=== PATIENT | female | born 1940 | race Caucasian/White ===

== ENCOUNTER 2019-09-29 10:42 | Outpatient (CLI) | payer MEDICARE, OTHER, SELFPAY ==
--- NOTE | ~2019-09-29 | MM_ITS ---
EXAMINATION: MM screening [facility] BI w zay HISTORY: Screening mammogram TECHNIQUE: Craniocaudal and mediolateral oblique 3-D tomosynthesis images were obtained and synthetic 2-D images were generated. CAD analysis was submitted and interpreted. COMPARISON: Comparison to multiple prior studies sequentially, with oldest reviewed study dated 11/2011. BREAST PARENCHYMAL COMPOSITION: There are scattered areas of fibroglandular density. FINDINGS: There is no evidence of suspicious mass, calcification, or architectural distortion to sugg est malignancy in either breast. There has been no suspicious interval change. IMPRESSION: 1. No mammographic evidence of malignancy. 2. Recommend routine screening mammography in one year. BI-RADS Category 1: Negative Reviewed, dictated and finalized at location A.
== END 2019-09-29 10:43 | disposition home or self-care (01) ==
PROVIDERS: PCP Family Medicine; Visit Provider Family Medicine
DX: Z12.31 Encounter for screening mammogram for malignant neoplasm of breast (principal)
CPT/HCPCS: 77063; 77067

== ENCOUNTER 2019-10-14 10:56 | Outpatient (CLI) | payer MEDICARE, OTHER, SELFPAY ==
--- NOTE | ~2019-10-14 | XR_ITS ---
EXAMINATION: XR ankle LT min 3V, XR foot LT min 3V DATE: 10/14/2019 11:11 INDICATION: Left foot pain TECHNIQUE: 1. Anteroposterior, mortise, additional oblique and lateral view of the left ankle were obtained. 2. Dorsoplantar, two oblique and lateral views of the left foot were obtained. COMPARISON: None. FINDINGS: There is approximately 2-3 mm separation across an oblique fracture at the base of the left fifth met atarsal which extends to the junction of the articular surfaces with the cuboid and adjacent fourth m etatarsal. The fracture margins are somewhat indistinct with increased sclerosis but no cortication t o suggest nonunion consistent with likely subacute fracture with early changes of healing but no defi nitive solid bridging. Otherwise normal alignment at the left foot and ankle. No other fractures iden tified. Polyarticular osteoarthritis, moderate severity at the first metatarsophalangeal and second d istal interphalangeal joints and mild at the left ankle and several additional joints in the left mid and forefoot. No left ankle joint effusion. Soft tissue swelling about the dorsal lateral aspect of the midfoot. IMPRESSION: 1. 2-3 mm separation of an ununited likely subacute intra-articular fracture at the base of the left fifth metatarsal. Reviewed, dictated and finalized at location D. IMPRESSION: 1. 2-3 mm separation of an ununited likely subacute intra-articular fracture at the base of the left fifth metatarsal.
== END 2019-10-14 10:57 | disposition home or self-care (01) ==
PROVIDERS: PCP Family Medicine; Visit Provider Physician Assistant
DX: M79.672 Pain in left foot (principal); M25.572 Pain in left ankle and joints of left foot
CPT/HCPCS: 73610; 73630

== ENCOUNTER 2019-11-01 10:57 | Outpatient (CLI) | payer MEDICARE, OTHER, SELFPAY ==
--- NOTE | ~2019-11-01 | MR_ITS ---
EXAMINATION: MR lumbar spine wo/w con DATE: 11/01/2019 12:03 INDICATION: Lumbago. TECHNIQUE: Magnetic resonance imaging (MRI) of the lumbar spine was performed without and with 17 mL MultiHance intravenous contrast. Sequences included sagittal T2-weighted FSE, sagittal STIR FSE, and sagittal and axial T1-weighted FSE. Postcontrast sequences included axial T2-weighted FSE and axial a nd sagittal T1-weighted FS FSE. COMPARISON: Lumbar spine MRI 10/23/2017, CT 09/04/2018 FINDINGS: There is 2 mm retrolisthesis of L2 on L3. Vertebral body heights are normal. There is mildl y decreased disc height at L1-L2, severely decreased disc height at L2-L3, and moderately decreased d isc height at L3-L4. There are changes of anterior and posterior fusion procedures at L4-L5 with inte rbody devices and pedicle screws. The distal spinal cord signal intensity is normal. The conus medull demetrice is at L2. There is clumping and peripheral displacement of the cauda equina from L4 to S1, consi stent with arachnoiditis. The following disc levels are specifically discussed: L1-L2: The disc is bulging and has an annular fissure. There is moderate right and mild left facet nupur int osteoarthritis. There is mild bilateral neural foraminal stenosis. There is mild central canal st enosis. L2-L3: The disc is bulging and has an annular fissure. There is severe bilateral facet joint osteoart hritis. There is moderate right and mild left neural foraminal stenosis. There is mild central canal stenosis. L3-L4: The disc is bulging. There is mild bilateral facet joint hypertrophy. There is mild bilateral neural foraminal stenosis. There is mild central canal stenosis. L4-L5: There is mild bilateral facet joint hypertrophy. There is no neural foraminal stenosis. There is no central canal stenosis status post posterior decompression. L5-S1: The disc is mildly bulging. There is severe bilateral facet joint osteoarthritis. There is mil d bilateral neural foraminal stenosis. There is no central canal stenosis. IMPRESSION: 1. Severe lumbar spondylosis with interval worsening at L2-L3. 2. Anterior and posterior fusion procedures at L4-L5. 3. 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 Reviewed, dictated and finalized at location A.
[2019-11-01 11:43] LABS: Estimated Glomerular Filt Rate > 60
== END 2019-11-01 10:58 | disposition home or self-care (01) ==
PROVIDERS: PCP Family Medicine; Visit Provider Anesthesiology Pain Medicine
DX: M47.896 Other spondylosis, lumbar region (principal); Z98.1 Arthrodesis status; G03.9 Meningitis, unspecified
CPT/HCPCS: 36415; 72158; A9577

== ENCOUNTER 2019-12-01 13:03 | Emergency (ER) | payer MEDICARE, OTHER, SELFPAY ==
[2019-12-01 13:12] VITALS: BP 152/52; PULSE 59; RESP 20; TEMP 36.3; O2SAT 100
--- NOTE | 2019-12-01 13:14 | ED.URI ---
HPI - URI/Sore Throat General Chief Complaint: Upper Respiratory Infection Stated Complaint: sore throat/runny nose Time Seen by Provider: 12/01/19 13:14 Source: patient and RN notes reviewed History of Present Illness HPI Narrative: Patient is a 79-year-old female who presents the urgent care with complaints of a sore throat and sinus drainage. Patient states is been ongoing for approximately 2 weeks with a mild intermittent cough. Patient states that she saw her PCP who gave her Tessalon, Medrol Dosepak, and a COVID prescription. Patient's COVID test was negative. Patient states that she ran a low-grade fever intermittently for a few days but denies of any nausea, vomiting. Patient has been taking the Medrol Dosepak as prescribed with mild symptom relief. However patient claims that she has a secondary throat bacterial infection that needs to be cleared up . No other acute complaints. No acute distress noted. Patient read the plan of care. Related Data Home Medications Medication Instructions Recorded Confirmed donepezil 5 mg tablet 5 mg PO ONCE 08/25/19 gabapentin 400 mg PO BID 12/01/19 12/01/19 lisinopril-hydrochlorothiazide 1 tablet DAILY 12/01/19 12/01/19 Allergies Allergy/AdvReac Type Severity Reaction Status Date / Time Penicillins Allergy Unknown Verified 03/08/14 14:24 Sulfa (Sulfonamide Allergy Unknown Verified 10/28/17 11:50 Antibiotics) Review of Systems Review of Systems: Narrative: CONSTITUTIONAL: Denies fever, chills, or sweats. EYES: Denies visual changes, redness, or discharge. ENT: Reports of sore throat and postnasal drainage CARDIOVASCULAR: Denies chest pain, palpitations, or edema. RESPIRATORY: Denies cough or dyspnea. GASTROINTESTINAL: Denies abdominal pain, nausea, vomiting, or diarrhea. GENITOURINARY: Denies dysuria or hematuria. SKIN: Denies rash or itching. MUSCULOSKELETAL: Denies back pain, joint pain, or myalgia. NEUROLOGIC: Denies headache, numbness, or weakness. All other systems reviewed are negative, except as documented in HPI. [facility] Past Medical History Medical History (Updated 12/01/19 @ 13:39 by GIGI Henderson) Anxiety Asthma Chronic low back pain Depression GERD (gastroesophageal reflux disease) REM sleep behavior disorder Vertigo Surgical History Surgical History (Updated 05/28/19 @ 10:32 by Juan Jose Avilez PA-C) History of back surgery Family History Family History (Updated 12/09/17 @ 13:08 by DOCTOR UNKNOWN) Mother Patient's mother is in good health, Onset Age: 92 Family history of arthritis Hypertension Cerebrovascular accident Father Acute myocardial infarction, Onset Age: 68 Family history of congenital heart disease Hypertension Family history of cardiovascular disease Patient's father is Social History Social History Smoking status: Never smoker Second hand tobacco smoke exposure: No Alcohol intake: never Gender identity (if verbalized by the patient): Female Comments At the time of my signature, I reviewed and agree with the nursing past medical, surgical, social, and family history. There is no relevant family history pertinent to the patient complaint. Exam Narrative: Exam Narrative: GENERAL: This is a well-nourished, well-developed patient, in no apparent distress. HEAD: normocephalic, atraumatic. EYES: PERRL. Sclera clear/white. Vision is grossly intact. EARS: External ears normal, auditory canals clear and without drainage, TMs normal without perforation. Hearing grossly intact. NOSE: External nose normal with no obvious nasal discharge, nares without redness, no rhinorrhea. THROAT: Mucous membranes moist, posterior pharynx clear. Mild postnasal drainage NECK: Neck supple CARDIOVASCULAR: Regular rate and rhythm without murmurs, gallops, or rubs. RESPIRATORY: Clear to auscultation. Breath sounds equal bilaterally. No wheezes, r
== END 2019-12-01 13:43 | disposition home or self-care (01) ==
PROVIDERS: Emergency Provider Nurse Practitioner Family; PCP Family Medicine
DX: J02.9 Acute pharyngitis, unspecified (principal); J45.909 Unspecified asthma, uncomplicated; F41.9 Anxiety disorder, unspecified; F32.9 Major depressive disorder, single episode, unspecified
CPT/HCPCS: 87081; 87880; 99213; G0463

== ENCOUNTER 2019-12-04 14:20 | Outpatient (CLI) | payer MEDICARE, OTHER, SELFPAY ==
--- NOTE | ~2019-12-04 | DEXA_ITS ---
Bone Density Report Name: Isatu Murillo Age: 79 Sex: Female Ethnicity: White Date of : 1940 Indication: osteopenia; height loss; asthma or emphysema; hysterectomy; Referring Provider: PANCHO LOPEZ Study: Bone densitometry was performed. Exam Date: December 04, 2019 Accession number: [id number] Bone Density: Region BMD T-score Z-score Classification AP Spine (L1, L2) 0.926 -0.5 1.9 Normal Femoral Neck (Left) 0.725 -1.1 1.1 Osteopenia Total Hip (Left) 0.854 -0.7 1.2 Normal Total Hip Bilateral Avg 0.882 -0.5 1.5 Normal Femoral Neck (Right) 0.715 -1.2 1.0 Osteopenia Total Hip (Right) 0.909 -0.3 1.7 Normal World Health Organization criteria for BMD impression classify patients as: Normal (T-score at or above -1.0), Osteopenia (T-score between -1.0 and -2.5), or Osteoporosis (T-score at or below -2.5). 10-year Fracture Risk(1): Major Osteoporotic Fracture 11% Hip Fracture 1.9% Reported Risk Factors: [place] (), Neck BMD=0.715, BMI=35.4 (1) FRAX(R) Version 3.08. Fracture probability calculated for an untreated patient. Fracture probability may be lower if the patient has received treatment. Previous Exams: Region Exam Age BMD T-score BMD Change BMD Change Date g/cm2 vs Baseline vs Previous AP Spine(L1, L2) 12/04/2019 79 0.926 -0.5 -0.005(-0.5%)# -0.005(-0.5%)# 01/31/2010 69 0.931 -0.4 Total Hip(Left) 12/04/2019 79 0.854 -0.7 -0.002(-0.2%)# -0.002(-0.2%)# 01/31/2010 69 0.856 -0.7 Total Hip(Right) 12/04/2019 79 0.909 -0.3 0.109(13.6%)# 0.109(13.6%)# 01/31/2010 69 0.801 -1.2 *Denotes significance at 95% confidence level, LSC for AP Spine = 0.022 g/cm2, LSC for Total Hip = 0.027 g/cm2 Clinical Information Provided by Patient: Has used the following medications: Vitamin D, Calcium Has the following medical conditions: Asthma or Emphysema, Hysterectomy Patient maximum height was 64 No regular weight bearing exercise Drinks caffeinated beverages Onset of menses at age 14 Number of children 2 Impression: The patient has low bone mass, based on the Right Femoral Neck T-score. The patient has an estimated ten-year risk of hip fracture of 1.9% and an estimated ten-year risk of major fracture of 11%, based on the WHO FRAX algorithm. No significant bone loss was observed. Discussion: BONE DENSITY IS LOW AT ONE OR MORE SKELETAL SITES. This patient's lowest T-score is low at one or more skeletal sites.
== END 2019-12-04 14:21 | disposition home or self-care (01) ==
LOC: ANHIMG 14:22
PROVIDERS: PCP Family Medicine; Visit Provider Physician Assistant
DX: Z78.0 Asymptomatic menopausal state (principal); M85.852 Other specified disorders of bone density and structure, left thigh; M85.851 Other specified disorders of bone density and structure, right thigh
CPT/HCPCS: 77080

== ENCOUNTER → 2020-03-17 12:23 | Outpatient (CLI) | payer MEDICARE, OTHER, SELFPAY ==
--- NOTE | ~2020-03-17 | CT_ITS ---
EXAMINATION: CT brain wo con EXAM DATE: 03/17/2020 12:55 INDICATION: R51.9 -headaches. Onset of dementia. Melanoma. TECHNIQUE: Spiral CT of the head was performed without contrast. Axial, coronal and sagittal images were reviewed. The dose-length product (DLP) for this examination was 599.57 mGy-cm. The exposure w as tailored according to patient size, and iterative reconstruction (ASIR) was used as additional dos e reduction technique. Comparison is made to prior examination from 08/28/2015. FINDINGS: There is no acute intraparenchymal hemorrhage. No evidence of intraparenchymal brain mass lesion. No evidence of acute infarction. Please note that initial head CT has limited sensitivity f or small or acute infarctions. There is mild periventricular and subcortical hypodensity, nonspecific but probably related to small vessel ischemic disease. There is moderate prominence of the sulci a nd ventricles related to cerebral atrophy. There is intracranial carotid arteriosclerosis. There a re no extra-axial collections. There is no mass effect or midline shift. The orbits are unremarkabl e. Soft tissue is unremarkable. The visualized sinuses and mastoid air cells are well aerated. IMPRESSION: 1. No acute intracranial findings. 2. Chronic age related findings. Reviewed, dictated and finalized at location A. AL WORK THERAPIST
== END ==
PROVIDERS: PCP Family Medicine; Visit Provider Physician Assistant
DX: R51.9 Headache, unspecified (principal)
CPT/HCPCS: 70450

== ENCOUNTER 2020-05-10 08:36 | Outpatient (CLI) | payer MEDICARE, OTHER, SELFPAY ==
--- NOTE | ~2020-05-10 | MR_ITS ---
EXAMINATION: MR brain/brain stem wo con EXAM DATE: 05/10/2020 11:24 INDICATION: Migraine headaches. Dizziness. Sinus headaches. TECHNIQUE: Magnetic resonance imaging (MRI) of the brain/brain stem obtained without contrast. Sagitt al T1, axial diffusion, gradient echo (T2*), T1, T2, FLAIR sequences obtained. Comparison is made to prior examination from 07/24/2016. FINDINGS: There are no areas of restricted diffusion to suggest acute infarction. There is no acute hemorrhage seen on the T2*, a hemosiderin sensitive sequence. No intraparenchymal brain mass lesion. There is mild periventricular and subcortical T2/FLAIR signal hyperintensity, nonspecific but probab ly related to small vessel ischemic disease (microangiopathy). There is mild prominence of the sulc i and ventricles related to cerebral atrophy. There are no extra-axial collections. Flow voids are seen in the cerebral arteries on the T2-weighted sequences consistent with their expected patency. The orbits are unremarkable. Soft tissue is unremarkable. IMPRESSION: 1. No acute intracranial findings. 2. Chronic age related findings. Reviewed, dictated and finalized at location B. ACQUISITION SPECIALIST
--- NOTE | 2020-05-11 10:51 | WPDNEUROLOGY ---
Neurology EEG Report General Information Date of Study: 05/10/20 TEST EEG DIAGNOSIS headaches CONDITION OF RECORDING awake drowsy and sleep EEG NUMBER [id number] CLINICAL HISTORY reported she has been having difficulties with the memory and has ongoing headaches EEG DESCRIPTION basic resting occipital frequency consists of low to medium voltage 8 to 9 hertz per 2nd alpha admixed with low-voltage 15 to 18 hertz per 2nd beta. Bilateral symmetrical sleep activity seen during sleep multiple artifacts are noted throughout the tracing. Non paroxysmal. Nonfocal. Nonlateralizing. IMPRESSION No significant abnormalities noted
== END 2020-05-10 08:37 | disposition home or self-care (01) ==
PROVIDERS: PCP Family Medicine; Visit Provider Psychiatry & Neurology Neurology
DX: G43.909 Migraine, unspecified, not intractable, without status migrainosus (principal)
CPT/HCPCS: 70551; 95816

== ENCOUNTER 2020-09-01 11:57 | Outpatient (CLI) | payer MEDICARE, OTHER, SELFPAY ==
--- NOTE | ~2020-09-01 | XR_ITS ---
EXAMINATION: XR hip LT 2V w AP pelvis EXAM DATE: 09/01/2020 12:21 INDICATION: M25.552 - Pain in left hip. History of arthritis. TECHNIQUE: Left hip frontal, 'frog leg' projections for interpretation. Frontal projection pelvis. C omparison is made to prior examination from 08/28/2015. FINDINGS: Smooth left hip femoral head contour, no radiographic evidence of avascular necrosis. There is moderate left hip, mild right hip primary osteoarthritis. Compared to 2016, mild progression in t he loss of left hip joint space. L4-5 fusion hardware. Moderate disc disease L3-4. There are no acute fractures or dislocations identi fied. There is no subcutaneous gas. The soft tissue is unremarkable. There are no radiopaque fore ign bodies. IMPRESSION: Moderate left, mild right hip osteoarthritis. Reviewed, dictated and finalized at location B.
== END 2020-09-01 11:58 | disposition home or self-care (01) ==
LOC: ANHIMG 12:02
PROVIDERS: PCP Family Medicine; Visit Provider Family Medicine
DX: M16.0 Bilateral primary osteoarthritis of hip (principal)
CPT/HCPCS: 73502

== ENCOUNTER 2020-11-25 18:08 | Emergency (ER) | payer MEDICARE, OTHER, SELFPAY ==
--- NOTE | ~2020-11-25 | XR_ITS ---
EXAMINATION: XR chest 2V DATE: 11/25/2020 19:03 INDICATION: Weakness, hypertension TECHNIQUE: PA and lateral views of the chest are obtained. COMPARISON: 05/13/2009 FINDINGS: The lungs are free of acute opacities. There is no pleural effusion or pneumothorax. The ca rdiomediastinal silhouette is normal. There is moderate thoracic spondylosis. Surgical clips in the r ight upper quadrant are likely from prior cholecystectomy. A chronic an unchanged mildly sclerotic le era of the right humerus is consistent with an enchondroma. IMPRESSION: 1. No acute cardiopulmonary abnormality. Reviewed, dictated and finalized at location A.
--- NOTE | ~2020-11-25 | CT_ITS ---
EXAMINATION: CT abdomen pelvis w con INDICATION: Nausea TECHNIQUE: Computed tomographic images of the abdomen and pelvis were obtained after the administrati on of 100 cc of Omnipaque 350 intravenous contrast. The dose-length product (DLP) was 695.12 mGy-cm. Automated exposure control and iterative reconstruction technique were employed. COMPARISON: None available FINDINGS: Minimal dependent atelectasis is present in the lung bases. The heart size is normal. Nodul es of the visualized lung bases measure up to 4 mm, likely old granulomatous disease. The gallbladder is surgically absent. There is mild enlargement of the common bile duct and central intrahepatic charanjit ts which is likely due to post cholecystectomy state. The liver, spleen, pancreas, and adrenal glands are normal. The right kidney is unremarkable. A hypoattenuating lesion of the left kidney lower pole measuring 6 mm cyst too small to characterize but likely represents a cyst. No pathologically enlarg ed abdominal or pelvic lymph nodes are identified. There is no free intraperitoneal gas or evidence o f bowel obstruction. Colonic diverticulosis is present without evidence of diverticulitis. The append ix is normal. There are changes of anterior and posterior fusion at L4-5. Severe spondylosis is prese nt at L2-3 and L3-4. A fat-containing umbilical hernia is noted. IMPRESSION: 1. No CT correlate for the patient's symptoms. Reviewed, dictated and finalized at location A.
[2020-11-25 18:42] VITALS: BP 123/43; PULSE 82; RESP 20; TEMP 36.4; O2SAT 99
--- NOTE | 2020-11-25 18:50 | ECG_ITS ---
Measurements Intervals [place] Rate: 69 P: 45 NC: 158 QRS: 2 QRSD: 86 T: 21 QT: 396 QTc: 427 Interpretive Statements SINUS RHYTHM VENTRICULAR PREMATURE COMPLEXES CANNOT RULE OUT SEPTAL INFARCT, AGE INDETERMINATE BORDERLINE ST ABNORMALITY- LATERAL LEADS ABNORMAL ECG Electronically Signed On 11-26-2020 7:30:24 CDT by Roland Duffy D.O.
[2020-11-25 19:01] LABS: Basophils Absolute Auto 0.1 K/mm3 (0.0-0.1); Basophils Percent Auto 0.6 % (0.2-1.2); Eosinophils Absolute Auto 0.1 K/mm3 (0-0.3); Eosinophils Percent Auto 1.3 % (0-4.4); Hematocrit 36.2 % (37.0-47.0); Hemoglobin 11.7 g/dL (12.0-15.0); Immature Granulocyte Absolute 0.03 K/mm3 (0.00-0.031); Immature Granulocyte Percent A 0.3 % (0-0.5); Lymphocytes Absolute Auto 1.52 K/mm3 (0.9-3.2); Lymphocytes Percent Auto 15.2 % (18.3-44.2); Mean Corpuscular HGB Conc 32.3 g/dl (32-36); Mean Corpuscular Hemoglobin 27.7 pg (26-34); Mean Corpuscular Volume 85.8 fl (80-100); Mean Platelet Volume 9.6 fl (7.4-10.4); Monocytes Percent Auto 9.6 % (2.6-8.5); Neutrophils Absolute Auto 7.3 K/mm3 (1.3-6.7); Platelet Count Result 296 k/mm3 (150-375); Red Blood Count 4.22 M/mm3 (4.2-5.4); Red Cell Distribution Width 13.8 % (11.5-14.5)
[2020-11-25 19:12] LABS: Alanine Aminotransferase 12 U/L (4-35); Albumin Level 3.9 g/dL (3.5-5.1); Alkaline Phosphatase 65 U/L (38-126); Anion Gap 11 mmol/L (8-16); Aspartate Amino Transferase 18 U/L (14-36); Bilirubin,Total 0.2 mg/dL (0.2-1.3); Blood Urea Nitrogen 17 mg/dL (7-17); Calcium 9.6 mg/dL (8.4-10.2); Carbon Dioxide 23 mmol/L (22-30); Chloride 100 mmol/L (98-107); Estimated CRCL calculation 58 ml/min; Estimated Glomerular Filt Rate > 60; Glucose 93 mg/dL (65-110); Potassium 3.8 mmol/L (3.4-5.0); Sodium 134 mmol/L (137-145)
--- NOTE | 2020-11-25 19:56 | ED.GENADULT ---
HPI - General Adult General Chief complaint: Unspecified Stated complaint: constipation Time Seen by Provider: 11/25/20 19:41 History of Present Illness HPI narrative: 80 yo female presents to the ED w/ multiple complaints. She reports that she has had nausea for weeks. This has lead to poor PO intake and generalized weakness and fatigue. The nausea started after taking medications for hip pain. She was on tramadol and gabapentin. In addition to this she has taken naproxen occasionally. She has alternating constipation and diarrhea. She had one dark stool today. She also had mild generalized abdominal pain. Related Data Home Medications Medication Instructions Recorded Confirmed cholecalciferol (vitamin D3) 25 25 mcg PO DAILY 02/09/20 12/02/20 mcg (1,000 unit) capsule duloxetine 20 mg capsule,delayed 20 mg PO DAILY cap 08/23/20 12/02/20 release Review of Systems Review of Systems: All systems reviewed & are unremarkable except as noted in HPI and below Constitutional: Constitutional: Reports fatigue, Denies fever(s), Reports weakness and Reports weight loss Eyes: Eyes: Reports no additional eye complaints ENT: Reports system reviewed and no additional complaints, except as documented Cardiovascular: Cardiovascular: Denies chest pain Respiratory: Respiratory: Denies dyspnea Gastrointestinal: Gastrointestinal: Reports as per HPI Genitourinary: Genitourinary: Reports no additional female genitourinary complaints Musculoskeletal: Musculoskeletal: Reports back pain and Reports arthralgias Neurologic: Reports system reviewed and no additional complaints, except as documented Hematologic/Lymphatic: Hematologic/Lymphatic: Denies easy bleeding and Denies easy bruising PMFSH Past Medical History Medical History Anxiety Asthma Chronic low back pain Depression GERD (gastroesophageal reflux disease) REM sleep behavior disorder Vertigo Surgical History Surgical History History of back surgery Family History Family History Mother Patient's mother is in good health, Onset Age: 92 Family history of arthritis Hypertension Cerebrovascular accident Father Acute myocardial infarction, Onset Age: 68 Family history of congenital heart disease Hypertension Family history of cardiovascular disease Patient's father is Social History Social History Smoking status: Never smoker Second hand tobacco smoke exposure: No Alcohol intake: never Substance use: never Substance use type: does not use Gender identity (if verbalized by the patient): Female Exam Const: General: healthy appearing, no acute distress and alert Orientation/consciousness: patient oriented x3 HENMT: Head: normal to inspection Neck: Neck: normal visual inspection and no lymphadenopathy Chest: Chest palpation & inspection: no tenderness Resp: Effort & Inspection: normal respiratory effort Auscultation: clear to auscultation bilaterally, no rales, no rhonchi and no wheezes Cardio: Jugular venous distension: no JVD Rate: regular rate Rhythm: regular rhythm Heart sounds: no murmurs GI: Inspection: non-distended GI Palp: Yes Soft to palpation and No Tenderness to palpation present (GI) Skin: General skin exam: normal color Neuro: General: patient oriented x3 and moves all extremities Speech: normal speech Extrem: General: no edema Psych: Appearance: well kempt Affect: normal affect Course Vital Signs Vital signs: Vital Signs Temperature 36.4 C 11/25/20 18:42 Pulse Rate 82 11/25/20 18:42 Respiratory Rate 20 11/25/20 18:42 Blood Pressure 123/43 L 11/25/20 18:42 Pulse Oximetry 99 11/25/20 18:42 Temperature 36.4 C 11/25/20 18:42 Pulse Rate
[2020-11-25 20:13] LABS: Add Urine Microscopic? YES; Appearance Urine Cloudy (Clear); Bacteria Urine Trace /hpf; Bilirubin Urine Negative (Negative); Blood Urine Negative (Negative); Color Urine Yellow (Yellow); Glucose Urine UA Negative (Negative); Ketones Urine Negative (Negative); Leukocyte Esterase Ur Trace LEU/UL (Negative); Mucus Urine Rare /lpf; Nitrate Urine Negative (Negative); Protein Urine Negative (Negative); RBC Urine 0-2 /hpf (0-2); Specific Grav Ur 1.015 (1.001-1.035); Squamous Epithelial Cell Urine Few /hpf (Few); Urobilinogen Urine Negative mg/dL (<2.0)
[2020-11-25] MEDS: SODIUM CHLORIDE 0.9% IV 1,000 ML 999 ML IV CONT (20:16)
[2020-11-25] MEDS: ONDANSETRON INJ 4 MG/2 ML VIAL IV PUSH (20:16)
[2020-11-25] MEDS: PANTOPRAZOLE SODIUM IV 40 MG VIAL IV PUSH (20:16)
[2020-11-25 21:07] VITALS: PULSE 89
[2020-11-25 21:13] VITALS: PULSE 80; RESP 19; O2SAT 99
[2020-11-25 21:15] VITALS: BP 164/78; PULSE 78; RESP 14; O2SAT 99
--- NOTE | 2020-11-25 21:37 | PC.NURSE ---
Pt tolerated PO challenge well.
[2020-11-25 22:11] VITALS: BP 155/77; PULSE 82; O2SAT 100
[2020-11-25 23:11] LABS: Hematocrit 34.2 % (37.0-47.0)
[2020-11-25 23:42] VITALS: BP 149/63; PULSE 88; RESP 18; O2SAT 100
[2020-11-25] MEDS: NITROFURANTOIN MONOHYD MACROCR 100 MG CAP PO (23:52)
== END 2020-11-25 23:52 | disposition home or self-care (01) ==
PROVIDERS: Emergency Medicine; Emergency Provider Emergency Medicine; PCP Family Medicine
DX: R11.0 Nausea (principal); E86.0 Dehydration; J45.909 Unspecified asthma, uncomplicated; K21.9 Gastro-esophageal reflux disease without esophagitis; G47.52 REM sleep behavior disorder; I49.3 Ventricular premature depolarization; R94.31 Abnormal electrocardiogram [ECG] [EKG]; R82.998 Other abnormal findings in urine
CPT/HCPCS: 36415; 71046; 74177; 80053; 81001; 85014; 85018; 85025; 87086; 87088; 93005; 96361; 96374; 96375; 99284; A9270; C9113; J2405; J7030; Q9967

== ENCOUNTER 2020-12-27 14:48 | Emergency (ER) | payer MEDICARE, OTHER, SELFPAY ==
[2020-12-27] VITALS (18 sets, daily range): BP systolic 108–168; BP diastolic 55–85; PULSE 58–68; RESP 9–22; TEMP 36.3; O2SAT 100
--- NOTE | ~2020-12-27 | CT_ITS ---
EXAMINATION: CT brain wo con DATE: 12/27/2020 21:17 INDICATION: Dizziness. Syncope. TECHNIQUE: Computed tomography (CT) of the head was performed without intravenous contrast. The mA wa s adjusted according to patient size. Iterative reconstruction technique was employed. The dose-lengt h product was 605.33 mGy-cm. COMPARISON: Head CT 03/17/2020, brain MRI 05/10/2020 FINDINGS: There are scattered areas of low attenuation in the cerebral white matter, which is within normal limits for the patient's age. There is no intracranial hemorrhage, acute infarction, or abnorm al intracranial mass lesion. The ventricles are normal in size. The paranasal sinuses are clear. Ther e are likely changes of ocular lens replacement surgeries. The mastoid air cells are normal. IMPRESSION: 1. Normal aging brain. Reviewed, dictated and finalized at location A. IMPRESSION: 1. Normal aging brain.
--- NOTE | 2020-12-27 15:29 | ECG_ITS ---
Measurements Intervals [place] Rate: 63 P: 37 WA: 147 QRS: 8 QRSD: 83 T: 31 QT: 424 QTc: 437 Interpretive Statements SINUS RHYTHM LOW QRS VOLTAGE IN PRECORDIAL LEADS BORDERLINE ECG Electronically Signed On 12-27-2020 16:38:23 CDT by Roland Duffy D.O.
[2020-12-27 15:51] LABS: Basophils Absolute Auto 0.1 K/mm3 (0.0-0.1); Basophils Percent Auto 0.6 % (0.2-1.2); Eosinophils Absolute Auto 0.1 K/mm3 (0-0.3); Eosinophils Percent Auto 1.2 % (0-4.4); Hematocrit 32.6 % (37.0-47.0); Hemoglobin 10.5 g/dL (12.0-15.0); Immature Granulocyte Absolute 0.05 K/mm3 (0.00-0.031); Immature Granulocyte Percent A 0.5 % (0-0.5); Lymphocytes Absolute Auto 1.19 K/mm3 (0.9-3.2); Lymphocytes Percent Auto 11.2 % (18.3-44.2); Mean Corpuscular HGB Conc 32.2 g/dl (32-36); Mean Corpuscular Hemoglobin 27.9 pg (26-34); Mean Corpuscular Volume 86.5 fl (80-100); Monocytes Absolute Auto 0.7 K/mm3 (0.1-0.6); Monocytes Percent Auto 6.7 % (2.6-8.5); Neutrophils Absolute Auto 8.5 K/mm3 (1.3-6.7); Neutrophils Percent Auto 79.8 % (45.5-73.1); Platelet Count Result 490 k/mm3 (150-375); Red Blood Count 3.77 M/mm3 (4.2-5.4); Red Cell Distribution Width 13.5 % (11.5-14.5); White Blood Count 10.7 K/mm3 (4.5-10.0)
[2020-12-27 16:02] LABS: Anion Gap 8 mmol/L (8-16); Blood Urea Nitrogen 19 mg/dL (7-17); Calcium 9.3 mg/dL (8.4-10.2); Carbon Dioxide 25 mmol/L (22-30); Chloride 101 mmol/L (98-107); Estimated CRCL calculation 41 ml/min; Estimated Glomerular Filt Rate 54; Glucose 115 mg/dL (65-110); Potassium 3.5 mmol/L (3.4-5.0); Sodium 134 mmol/L (137-145)
--- NOTE | 2020-12-27 16:48 | PC.NURSE ---
pt asked how much longer? - explained that the ER is full & it is not first come first serve - it is based on acuity. Unfortunately must wait in ER.
--- NOTE | 2020-12-27 18:41 | PC.NURSE ---
pt on phone - complaining she is hurting and has been waiting for a very long time. Explained to pt again that ER is full and will be called back when a room is available and that it is not based on first coming in but based on acuity.
--- NOTE | 2020-12-27 20:56 | ED.SYNCOPE ---
HPI - Syncope General Chief Complaint: Syncope Stated Complaint: diarrhea, syncopal Time Seen by Provider: 12/27/20 20:28 Source: patient Mode of arrival: ambulatory Limitations: no limitations History of Present Illness HPI narrative: Patient is a 80-year-old female complaining of a syncopal episode while she was at the doctor's office today. Patient states that she felt dizzy prior to the event and passed out. Patient states that she was sitting down when it happened and when she woke up the clinic staff were around her. She denies any head, neck, chest, abdomen, back or any extremity pain/injury. Patient states that she does have a history of vertigo. Patient states that the past 2 days she has been having nausea, no appetite and today she had diarrhea described as loose watery nonbloody. Patient denies any speech or visual disturbance, focal weakness or numbness, chest pain, shortness of breath, abdominal pain, vomiting, fever or chills. Related Data Home Medications Medication Instructions Recorded Confirmed cholecalciferol (vitamin D3) 25 25 mcg PO DAILY 02/09/20 12/02/20 mcg (1,000 unit) capsule duloxetine 20 mg capsule,delayed 20 mg PO DAILY cap 08/23/20 12/02/20 release Allergies Allergy/AdvReac Type Severity Reaction Status Date / Time No Known Allergies Allergy Unverified 12/27/20 14:02 Review of Systems Review of Systems: All systems reviewed & are unremarkable except as noted in HPI and below Constitutional: Constitutional: Denies body ache(s), Denies chills, Denies excessive sweating, Denies fatigue, Denies fever(s), Denies headache(s), Denies lethargy, Denies malaise, Denies weakness and Denies weight loss Eyes: Eyes: Denies blurry vision, Denies change in vision and Denies loss of vision ENT: Denies ear discharge, Denies headache(s), Denies lip swelling, Denies epistaxis, Denies nasal congestion, Denies neck pain, Denies throat swelling and Denies tongue swelling Cardiovascular: Cardiovascular: Denies chest pain, Denies chest pain at rest, Denies chest pain with activity, Denies diaphoresis, Denies rapid heart rate, Denies edema, Denies irregular heart rhythm, Denies lightheadedness, Denies palpitations, Denies dyspnea and Denies dyspnea on exertion Respiratory: Respiratory: Denies chest congestion, Denies cough, Denies hemoptysis, Denies dyspnea and Denies dyspnea on exertion Gastrointestinal: Gastrointestinal: Denies abdominal pain, Denies melena, Denies hematochezia, Denies diarrhea, Denies nausea, Denies vomiting and Denies hematemesis Musculoskeletal: Musculoskeletal: Denies abnormal gait, Denies deformity, Denies joint swelling, Denies limited range of motion, Denies neck pain and Denies numbness Neurologic: Denies Abnormal speech present, Denies abnormal gait, Denies confusion, Denies headache(s), Denies focal weakness, Denies loss of vision, Denies numbness, Denies Other visual disturbances, Denies Sensory deficit (Neuro) and Denies weakness Psychiatric: Psychiatric: Denies confusion, Denies depression, Denies auditory hallucinations, Denies homicidal ideation and Denies suicidal ideation Endocrine: Endocrine: Denies cold intolerance, Denies excessive sweating, Denies fatigue, Denies heat intolerance and Denies palpitations Hematologic/Lymphatic: Hematologic/Lymphatic: Denies easy bleeding and Denies easy bruising Allergic/Immunologic: Allergic/Immunologic: Denies lip swelling, Denies throat swelling and Denies tongue swelling PMFSH Past Medical History Medical History Anxiety Asthma Chronic low back pain Depression GERD (gastroesophageal reflux disease) REM sleep behavior disorder Vertigo Surgical History Surgical History History of back surgery Family History Family History Mother Patient's mother is in good healt
[2020-12-27] MEDS: LACTATED RINGERS 1,000 ML 999 ML IV CONT (21:09)
== END 2020-12-27 23:20 | disposition home or self-care (01) ==
PROVIDERS: Emergency Medicine; Emergency Provider Emergency Medicine; PCP Family Medicine
DX: R55 Syncope and collapse (principal); F41.9 Anxiety disorder, unspecified; G89.29 Other chronic pain; F32.9 Major depressive disorder, single episode, unspecified; Z87.09 Personal history of other diseases of the respiratory system; Z87.19 Personal history of other diseases of the digestive system
CPT/HCPCS: 36415; 70450; 80048; 85025; 93005; 96360; 99284; J7120

== ENCOUNTER 2021-01-09 08:47 | Inpatient (IN) | payer MEDICARE, OTHER, SELFPAY ==
[2021-01-09] VITALS (7 sets, daily range): BP systolic 111–153; BP diastolic 56–82; PULSE 66–83; RESP 14–20; TEMP 36.7–37; O2SAT 95–100; BMI 37.2; BMI 34.2
--- NOTE | ~2021-01-09 | XR_ITS ---
EXAMINATION: XR elbow RT 2V EXAM DATE: 01/09/2021 13:18 INDICATION: Post reduction. TECHNIQUE: Frontal and lateral projections of the right elbow. Comparison is made to prior examinati on from earlier same date. FINDINGS: Positioning better for this examination. No fracture or dislocation identified. There is a splint overlying the posterior aspect of the elbow. IMPRESSION: Splinted right elbow. No fracture. Reviewed, dictated and finalized at location B.
--- NOTE | ~2021-01-09 | CT_ITS ---
EXAMINATION: CT brain wo con EXAM DATE: 01/11/2021 11:29 INDICATION: Persistent dizziness. On anticoagulation. Auditory hallucinations. Confusion. TECHNIQUE: Spiral CT of the head was performed without contrast. Axial, coronal and sagittal images were reviewed. The dose-length product (DLP) for this examination was 605.33 mGy-cm. The exposure w as tailored according to patient size, and iterative reconstruction (ASIR) was used as additional dos e reduction technique. Comparison is made to prior examination from 01/15/2021. FINDINGS: There is no acute intraparenchymal hemorrhage. No evidence of intraparenchymal brain mass lesion. No evidence of acute infarction. Please note that initial head CT has limited sensitivity f or small or acute infarctions. There is mild periventricular and subcortical hypodensity, nonspecific but probably related to small vessel ischemic disease. There is moderate prominence of the sulci a nd ventricles related to cerebral atrophy. There is intracranial carotid arteriosclerosis. There a re no extra-axial collections. There is no mass effect or midline shift. The orbits are unremarkabl e. Soft tissue is unremarkable. The visualized sinuses and mastoid air cells are well aerated. IMPRESSION: 1. No acute intracranial findings. 2. Chronic age related findings. Reviewed, dictated and finalized at location B.
--- NOTE | ~2021-01-09 | CT_ITS ---
EXAMINATION: CT elbow RT wo con EXAM DATE: 01/09/2021 13:07 INDICATION: Coronoid process fracture. Abnormal x-ray. TECHNIQUE: Spiral CT elbow right was performed without contrast. Axial, coronal and sagittal images were reviewed. The dose-length product (DLP) for this examination was 456.56 mGy-cm. The exposure was tailored according to patient size (auto mA exposure control), and iterative reconstruction (ASIR ) was used as additional dose reduction technique. Correlation is made to right elbow x-ray same date . FINDINGS: There is a right coronoid process vascular groove which probably accounts for the x-ray fin ding. No acute right elbow fracture suspected. No evidence of joint effusion/hemarthrosis. Mild soft tissue swelling over the lateral aspect of elbow. IMPRESSION: Unremarkable right elbow. Reviewed, dictated and finalized at location B. IMPRESSION: Unremarkable right elbow.
--- NOTE | ~2021-01-09 | XR_ITS ---
EXAMINATION: XR wrist RT 2V EXAM DATE: 01/09/2021 11:31 INDICATION: Post reduction. TECHNIQUE: Frontal and lateral projections of the right wrist. Comparison is made to prior examinati on from earlier same date. FINDINGS: There is been partial reduction in right radial distal metaphyseal comminuted intra-articu lar fracture. A splint has been applies. IMPRESSION: Partial reduction right radial distal metaphyseal comminuted intra-articular fracture. Reviewed, dictated and finalized at location B. IMPRESSION: Partial reduction right radial distal metaphyseal comminuted intra -articular fracture.
--- NOTE | ~2021-01-09 | XR_ITS ---
EXAMINATION: XR surgery orthopedic DATE: 01/10/2021 15:41 INDICATION: Left right wrist fracture TECHNIQUE: 5 fluoroscopic spot images of the right wrist were obtained during procedure performed by Dr. Benson. Radiologist was not present for the imaging or procedure. The amount of fluoroscopy time used during this procedure was 3.0 minutes. COMPARISON: None. FINDINGS: Interval open reduction internal fixation of a comminuted intra-articular fracture of the distal righ t radius with volar T plate and screw fixation. Alignment post fixation appears near-anatomic. No oth er fractures identified. IMPRESSION: 1. Near-anatomic alignment post open reduction internal fixation of a comminuted intra-articular frac ture of the distal right radius. Reviewed, dictated and finalized at location A. IMPRESSION: 1. Near-anatomic alignment post open reduction internal fixation of a comminute d intra-articular fracture of the distal right radius.
--- NOTE | ~2021-01-09 | XR_ITS ---
EXAMINATION: XR wrist RT min 3V EXAM DATE: 01/09/2021 09:41 INDICATION: Initial encounter following injury, with pain of the right wrist. TECHNIQUE: Frontal, oblique and lateral projections of the right wrist. Comparison is made to prior examination from 08/28/2015. FINDINGS: Acute closed posttraumatic comminuted right radial distal metaphyseal fracture into the di stal radioulnar joint and the radiocarpal joint, with complete posterior displacement and about 45 de grees of posterior angulation. There is overlying soft tissue swelling. No other fracture is identifi ed, but carpal and metacarpal evaluation limited. IMPRESSION: Acute comminuted right radial distal metaphyseal intra-articular fracture. Posterior ang ulation and dislocation. Reviewed, dictated and finalized at location B. IMPRESSION: Acute comminuted right radial distal metaphyseal intra-articular f racture. Posterior angulation and dislocation.
--- NOTE | ~2021-01-09 | XR_ITS ---
EXAMINATION: XR hip LT 2V w AP pelvis DATE: 01/09/2021 13:18 INDICATION: Fall post recent left total hip arthroplasty. TECHNIQUE: Anteroposterior view of the pelvis and anteroposterior and frog-leg lateral views of the l eft hip were obtained. COMPARISON: 09/01/2020 FINDINGS: Interval placement of a noncemented left total hip arthroplasty which appears well seated in near-elvie tomic alignment. No fracture. No periprosthetic lucency to suggest loosening or infection. Right hip joint space is normal. Mild bilateral sacroiliac osteoarthritis with small region of ankylosis at the right sacroiliac joint but appreciated on CT dated 11/25/2020. Combined instrumented anterior and pos terior spinal fusion at L4-L5 with interbody bone graft cages and bilateral vertical aileen and pedicle screw fixation. IMPRESSION: 1. Expected appearance of a left total hip arthroplasty with no acute osseous abnormality. Reviewed, dictated and finalized at location A. IMPRESSION: 1. Expected appearance of a left total hip arthroplasty with no acute osseous a bnormality.
--- NOTE | ~2021-01-09 | CT_ITS ---
EXAMINATION: CT brain wo con DATE: 01/09/2021 09:28 INDICATION: Right hand injury with hematoma to the right eyebrow. TECHNIQUE: Computed tomography (CT) of the head was performed without intravenous contrast. Sagittal and coronal reconstructions were performed. The mA was adjusted according to patient size. Iterative reconstruction technique was employed. The dose-length product was 605.33 mGy-cm. COMPARISON: head CT dated 12/27/2020 FINDINGS: No fracture. No acute intracranial hemorrhage, acute infarction or abnormal extra axial fluid collect ion. There is mild scattered white matter hypoattenuation which is within normal limits for age and l ikely related to chronic small vessel ischemic disease. Ventricles are normal and symmetric. No mass/ mass effect. Changes of bilateral intraocular lens replacement. The orbits, paranasal sinuses and mas toid air cells are normal. IMPRESSION: 1. Normal aging brain. No fracture or acute intracranial process. Reviewed, dictated and finalized at location A.
--- NOTE | ~2021-01-09 | XR_ITS ---
EXAMINATION: XR elbow RT min 3V EXAM DATE: 01/09/2021 09:41 INDICATION: Initial encounter following injury, with pain of the right elbow. TECHNIQUE: 4 projections of the right elbow. There is no prior study for comparison. FINDINGS: There is an acute closed posttraumatic fracture through the coronoid process of the ulna se en on the frontal projection. No other definite fractures identified, but study is limited due to pat ient positioning. IMPRESSION: Acute nondisplaced right ulnar coronoid process fracture. Reviewed, dictated and finalized at location B.
--- NOTE | 2021-01-09 08:53 | ECG_ITS ---
Measurements Intervals [place] Rate: 69 P: 36 MS: 152 QRS: -1 QRSD: 83 T: 32 QT: 429 QTc: 461 Interpretive Statements SINUS RHYTHM WITH FREQUENT ECTOPIC PREMATURE COMPLEXES FREQUENT VENTRICULAR PREMATURE COMPLEXES BASELINE ARTIFACT- I, II, III, AVR, AVL, AVF, V1 ABNORMAL ECG Electronically Signed On 01-09-2021 9:03:04 CDT by Roland Duffy D.O.
[2021-01-09] MEDS: fentaNYL CITRATE INJ (*CRX) 100 MCG/2 ML VIAL 50 MCG IV PUSH (09:15)
[2021-01-09] MEDS: SODIUM CHLORIDE 0.9% IV 1,000 ML 999 ML IV CONT (09:16)
[2021-01-09 09:56] LABS: Basophils Percent Auto 0.5 % (0.2-1.2); Eosinophils Absolute Auto 0.1 K/mm3 (0-0.3); Eosinophils Percent Auto 1.7 % (0-4.4); Hematocrit 33.6 % (37.0-47.0); Hemoglobin 10.8 g/dL (12.0-15.0); Immature Granulocyte Absolute 0.03 K/mm3 (0.00-0.031); Immature Granulocyte Percent A 0.4 % (0-0.5); Lymphocytes Absolute Auto 0.78 K/mm3 (0.9-3.2); Lymphocytes Percent Auto 10.2 % (18.3-44.2); Mean Corpuscular HGB Conc 32.1 g/dl (32-36); Mean Corpuscular Hemoglobin 27.8 pg (26-34); Mean Corpuscular Volume 86.6 fl (80-100); Mean Platelet Volume 9.8 fl (7.4-10.4); Monocytes Absolute Auto 0.6 K/mm3 (0.1-0.6); Monocytes Percent Auto 7.8 % (2.6-8.5); Neutrophils Percent Auto 79.4 % (45.5-73.1); Platelet Count Result 309 k/mm3 (150-375); Red Blood Count 3.88 M/mm3 (4.2-5.4); Red Cell Distribution Width 13.4 % (11.5-14.5); White Blood Count 7.6 K/mm3 (4.5-10.0)
[2021-01-09 10:05] LABS: Anion Gap 10 mmol/L (8-16); Blood Urea Nitrogen 16 mg/dL (7-17); Calcium 9.1 mg/dL (8.4-10.2); Carbon Dioxide 25 mmol/L (22-30); Chloride 102 mmol/L (98-107); Estimated CRCL calculation 69 ml/min; Estimated Glomerular Filt Rate > 60; Glucose 115 mg/dL (65-110); Potassium 3.4 mmol/L (3.4-5.0); Sodium 137 mmol/L (137-145)
[2021-01-09] MEDS: MECLIZINE HCL 25 MG TABLET PO (10:20)
[2021-01-09] MEDS: ONDANSETRON INJ 4 MG/2 ML VIAL IV PUSH (10:20)
[2021-01-09] MEDS: MORPHINE SULFATE (*CRX) 4 MG/ML INJ IV PUSH (11:07)
--- NOTE | 2021-01-09 12:41 | ED.GENADULT ---
HPI - General Adult General Chief complaint: Fall Stated complaint: fall - wrist injury, dizzy Time Seen by Provider: 01/09/21 08:53 History of Present Illness HPI narrative: Patient is a 80-year-old female who presents ER with right wrist deformity status post fall. Patient reports she was getting out of bed when she got very dizzy and nauseated. She has history of vertigo. She is concerned she is going to fall to her left which is where her surgically repaired hip is present. She opted to then fall to the right side. She tried to support herself but injured her wrist. No numbness or tingling. Splinted by EMS. She reports she did hit her head and she takes Eliquis but she did not lose consciousness. Related Data Home Medications Medication Instructions Recorded Confirmed cholecalciferol (vitamin D3) 25 25 mcg PO DAILY 02/09/20 12/29/20 mcg (1,000 unit) capsule duloxetine 20 mg capsule,delayed 20 mg PO DAILY cap 08/23/20 12/29/20 release Allergies Allergy/AdvReac Type Severity Reaction Status Date / Time No Known Allergies Allergy Unverified 12/27/20 14:02 Review of Systems Review of Systems: All systems reviewed & are unremarkable except as noted in HPI and below Constitutional: Constitutional: Denies chills, Denies fever(s) and Denies weakness ENT: Reports dizziness, Denies nasal congestion and Denies sore throat Cardiovascular: Cardiovascular: Denies chest pain and Denies radiating jaw, neck or arm pain Gastrointestinal: Gastrointestinal: Denies abdominal pain, Reports nausea and Denies vomiting Musculoskeletal: Musculoskeletal: Denies back pain, Reports arthralgias, Reports joint swelling and Denies muscle cramps [facility] Past Medical History Medical History (Updated 01/09/21 @ 17:26 by Fahad Sutton MD) Anxiety Asthma Chronic low back pain Depression GERD (gastroesophageal reflux disease) HTN (hypertension), benign REM sleep behavior disorder Vertigo Surgical History Surgical History History of back surgery History of left hip replacement Family History Family History Mother Patient's mother is in good health, Onset Age: 92 Family history of arthritis Hypertension Cerebrovascular accident Father Acute myocardial infarction, Onset Age: 68 Family history of congenital heart disease Hypertension Family history of cardiovascular disease Patient's father is Social History Social History Smoking status: Never smoker Second hand tobacco smoke exposure: No Alcohol intake: never Substance use: never Substance use type: does not use Gender identity (if verbalized by the patient): Female Sexual Orientation (if Verbalized by the Patient): Straight or Heterosexual Exam Narrative: GENERAL: Well-appearing, well-nourished, and in no acute distress. HEAD: Normocephalic, atraumatic. EYES: PERRL and EOMI. ENT: Mucous membranes moist. CHEST: Clear to auscultation. No respiratory distress. HEART: Regular rate and rhythm. Normal peripheral pulses. ABDOMEN: Soft, nontender, nondistended EXTREMITIES: Right upper extremity splinted. Deformity to the right wrist and tender over the lateral right elbow. No deformity or tenderness to lower extremities or left upper extremity. SKIN: Warm, dry, no rash. NEURO: No focal deficits. Alert and oriented x3. Course Course Emergency Course: Dr. Benson informed of additional imaging results. Admit to hospitalist service. Patient will be placed on SCDs for DVT prophylaxis. Reevaluation(s) Reevaluation #1: I discussed the case with Dr. Barraza. He is happy to follow the patient up but since patient recently had surgery with Dr. Benson, he recommends giving Dr. Benson the option to care for his own patient. Dr. Benson recommends lateral view of elbow a
[2021-01-09] MEDS: HYDROcodone/acetaminophen (*CRX) 5-325 MG TABLET 1 TAB PO (17:09)
--- NOTE | 2021-01-09 17:20 | PM.IMHP ---
H&P: HPI History of Present Illness Date/Time: 01/09/21 17:20 this is a 80-year-old female patient who recently had a left total hip replacement at [facility] on November the anterior view. The patient has been recovering at home. The patient has a history of vertigo and when she was getting out of bed she felt very dizzy and nauseated like she does when she has of bout of vertigo. The patient stated that she fell for it and she tried to protect her left hip when she landed on her right side. The patient has been on Xarelto for DVT prophylaxis since her hip surgery. However the patient stated she did not hit her head. Hip and pelvis x-ray was read as expected appearance of left total hip arthroplasty with no acute osseous abnormality. Patient had reduction of her right arm. X-ray post reduction shows splinted right elbow no fracture. Wrist x-ray allow right shows partial reduction right radial distal metaphyses comminuted intra-articular fracture. Head CT was read as normal aging brain. No fracture or acute intracranial process. The patient was started on IV fluids and given fentanyl, Zofran, Antivert and morphine. The right arm was placed in a sling and there was significant swelling to the right hand. The the patient was placed in observation status on the date of service of 01/09/2021. Chief Complaint: Fall with right arm pain Review of Systems Review of Systems: All systems reviewed & are unremarkable except as noted in HPI and below Constitutional: Constitutional: Reports as per HPI and Reports no additional constitutional complaints Eyes: Eyes: Reports as per HPI and Reports no additional eye complaints ENT: Reports system reviewed and no additional complaints, except as documented and Reports Normal hearing present Cardiovascular: Cardiovascular: Reports no additional cardiovascular complaints Respiratory: Respiratory: Reports no additional respiratory complaints and Reports no additional respiratory complaints Gastrointestinal: Gastrointestinal: Reports as per HPI and Reports no additional gastrointestinal complaints Musculoskeletal: Musculoskeletal: Reports no additional musculoskeletal complaints Integumentary/Breasts: Skin/Breast: Reports system reviewed and no additional complaints, except as docu and Reports as per HPI Neurologic: Reports system reviewed and no additional complaints, except as documented, Reports as per HPI and Reports Normal hearing present Psychiatric: Psychiatric: Reports no additional psychiatric complaints and Reports as per HPI Endocrine: Endocrine: Reports no additional endocrine complaints Hematologic/Lymphatic: Hematologic/Lymphatic: Reports no additional hematologic/lymphatic complaints Allergic/Immunologic: Allergic/Immunologic: Reports no additional allergic/immunologic complaints [facility] Past Medical History Medical History (Updated 01/09/21 @ 17:29 by Dona Dalton NP) Anxiety Asthma Chronic low back pain Dementia Depression Essential hypertension GERD (gastroesophageal reflux disease) HTN (hypertension), benign Hyperlipidemia Obstructive sleep apnea REM sleep behavior disorder Vertigo Surgical History Surgical History (Updated 01/09/21 @ 17:29 by Dona Dalton NP) H/O bladder repair surgery H/O cataract extraction H/O: hysterectomy History of back surgery History of bilateral knee replacement History of left hip replacement Hx of cholecystectomy Family History Family History Mother Patient's mother is in good health, Onset Age: 92 Family history of arthritis Hypertension Cerebrovascular accident Father Acute myocardial infarction, Onset Age: 68 Family history of congenital heart disease Hypertension Family history of cardiovascular disease Patient's father is Social History Social History (Updated 01/09/21 @ 17:30 by Dona Dalton NP) Social Histor
--- NOTE | 2021-01-09 17:22 | PM.CNOR ---
Assessment and Plan Additional Plan 80-year-old female has a comminuted right distal radius fracture with significant shortening as well as significant dorsal angulation. Again treated nonsurgically this would most likely give her a malunion and very poor results of use of the right wrist. Surgical and nonsurgical treatments were discussed. Patient elected proceed with surgery. Surgical procedures well as risk complications were discussed in detail questions were answered we will proceed tomorrow. She will be medically cleared from a hospitalist. Will check a vitamin-D 25 hydroxy level. Patient did not take her morning dose of Eliquis this morning we will keep her off of this until after surgery. has seen the x-rays and agrees with the plan. History of Present Illness HPI Consult date: 01/09/21 Chief complaint: distal radius fracture Review of Systems Review of Systems: All systems reviewed & are unremarkable except as noted in HPI and below PMFSH Past Medical History Medical History Anxiety Asthma Chronic low back pain Depression GERD (gastroesophageal reflux disease) REM sleep behavior disorder Vertigo Surgical History Surgical History History of back surgery History of left hip replacement Family History Family History Mother Patient's mother is in good health, Onset Age: 92 Family history of arthritis Hypertension Cerebrovascular accident Father Acute myocardial infarction, Onset Age: 68 Family history of congenital heart disease Hypertension Family history of cardiovascular disease Patient's father is Social History Social History Smoking status: Never smoker Second hand tobacco smoke exposure: No Alcohol intake: never Substance use: never Substance use type: does not use Gender identity (if verbalized by the patient): Female Sexual Orientation (if Verbalized by the Patient): Straight or Heterosexual Meds Home Medications and Allergies Home Medications Medication Instructions Recorded Confirmed Type cholecalciferol (vitamin D3) 25 25 mcg PO DAILY 02/09/20 12/29/20 History mcg (1,000 unit) capsule gabapentin 300 mg capsule 300 mg PO BID #180 cap 06/22/20 12/29/20 Rx azelastine 137 mcg (0.1 %) nasal See Rx Instructions .ROUTE 06/27/20 12/29/20 Rx spray aerosol .COMPLEX #30 ml lisinopril 20 1 tablet PO DAILY #30 tablet 07/25/20 12/29/20 Rx mg-hydrochlorothiazide 25 mg tablet clonazepam 1 mg tablet 1 mg PO DAILY #30 tablet 08/16/20 12/29/20 Rx duloxetine 20 mg capsule,delayed 20 mg PO DAILY cap 08/23/20 12/29/20 History release rivastigmine tartrate 4.5 mg 4.5 mg PO BID #30 cap 08/23/20 12/29/20 Rx capsule sertraline 50 mg tablet 50 mg PO DAILY #30 tablet 08/23/20 12/29/20 Rx metoprolol tartrate 50 mg tablet See Rx Instructions .ROUTE 09/12/20 12/29/20 Rx .COMPLEX #180 tablet albuterol sulfate 90 mcg/actuation 1 - 2 puff INHALATION Q4-6H PRN 10/03/20 12/29/20 Rx aerosol inhaler #8.5 gm atorvastatin 40 mg tablet 40 mg PO DAILY #90 tablet 10/03/20 12/29/20 Rx omeprazole 40 mg capsule,delayed See Rx Instructions .ROUTE 10/03/20 12/29/20 Rx release .COMPLEX #90 cap amlodipine 2.5 mg tablet See Rx Instructions .ROUTE 11/11/20 12/29/20 Rx .COMPLEX #90 tablet nitrofurantoin monohyd/m-cryst 100 mg PO Q12H 7 Days #14 cap 11/25/20 12/29/20 Rx [Macrobid] ondansetron HCl 4 mg tablet 4 mg PO Q6H PRN #20 tablet 12/07/20 12/29/20 Rx tramadol 50 mg tablet 50 mg PO Q8H PRN #30 tablet 12/12/20 12/29/20 Rx Allergies Allergy/AdvReac Type Severity Reaction Status Date / Time No Known Allergies Allergy Unverified 12/27/20 14:02 Vital Signs Vital Signs - 24 hr 01/09/21 08:48 01/09/21 14:01 01/09/21 16:00 Temperatu
--- NOTE | 2021-01-09 19:22 | PC.NURSE ---
1640 PT RECIEVED TO FLOOR, ORIENTED TO ROOM.
[2021-01-09 19:28] LABS: Vitamin D 25 Hydroxy 41.7 ng/mL
[2021-01-09] MEDS: SERTRALINE HCL 50 MG TABLET PO (20:34)
[2021-01-09] MEDS: RIVASTIGMINE TARTRATE 1.5 MG CAPSULE 4.5 MG PO (20:34)
[2021-01-09] MEDS: DULoxetine HCL 20 MG CAPSULE.DR PO (20:35)
[2021-01-09] MEDS: MECLIZINE HCL 6.25 MG TABLET PO (20:35)
[2021-01-09] MEDS: lisinopriL 20 MG TABLET PO (20:35)
[2021-01-09] MEDS: ATORVASTATIN 40 MG TABLET PO (20:36)
[2021-01-09] MEDS: hydroCHLOROthiazide 25 MG TABLET PO (20:36)
[2021-01-09] MEDS: PANTOPRAZOLE 40 MG TABLET PO (20:36)
[2021-01-09] MEDS: METOPROLOL TARTRATE 50 MG TAB PO (20:38)
[2021-01-09] MEDS: clonazePAM (*CRX) 0.5 MG TABLET 1 MG PO (20:49)
[2021-01-10] VITALS (16 sets, daily range): BP systolic 124–165; BP diastolic 55–74; PULSE 61–88; RESP 10–20; TEMP 35.7–37.2; O2SAT 96–100
[2021-01-10 06:24] LABS: Basophils Absolute Auto 0.1 K/mm3 (0.0-0.1); Basophils Percent Auto 0.8 % (0.2-1.2); Eosinophils Absolute Auto 0.1 K/mm3 (0-0.3); Eosinophils Percent Auto 1.4 % (0-4.4); Hematocrit 30.1 % (37.0-47.0); Hemoglobin 9.6 g/dL (12.0-15.0); Immature Granulocyte Absolute 0.02 K/mm3 (0.00-0.031); Immature Granulocyte Percent A 0.3 % (0-0.5); Lymphocytes Absolute Auto 1.15 K/mm3 (0.9-3.2); Lymphocytes Percent Auto 17.5 % (18.3-44.2); Mean Corpuscular HGB Conc 31.9 g/dl (32-36); Mean Corpuscular Volume 87.8 fl (80-100); Mean Platelet Volume 9.8 fl (7.4-10.4); Monocytes Absolute Auto 0.7 K/mm3 (0.1-0.6); Monocytes Percent Auto 10.2 % (2.6-8.5); Neutrophils Absolute Auto 4.6 K/mm3 (1.3-6.7); Neutrophils Percent Auto 69.8 % (45.5-73.1); Platelet Count Result 279 k/mm3 (150-375); Red Blood Count 3.43 M/mm3 (4.2-5.4); Red Cell Distribution Width 13.9 % (11.5-14.5); White Blood Count 6.6 K/mm3 (4.5-10.0)
[2021-01-10] MEDS: HYDROcodone/acetaminophen (*CRX) 5-325 MG TABLET 1 TAB PO (06:39)
[2021-01-10 06:40] LABS: Alanine Aminotransferase 10 U/L (4-35); Albumin Level 3.3 g/dL (3.5-5.1); Alkaline Phosphatase 80 U/L (38-126); Anion Gap 8 mmol/L (8-16); Aspartate Amino Transferase 27 U/L (14-36); Bilirubin,Total 0.5 mg/dL (0.2-1.3); Blood Urea Nitrogen 13 mg/dL (7-17); Calcium 8.7 mg/dL (8.4-10.2); Carbon Dioxide 23 mmol/L (22-30); Chloride 103 mmol/L (98-107); Estimated CRCL calculation 66 ml/min; Estimated Glomerular Filt Rate > 60; Glucose 113 mg/dL (65-110); Magnesium 2.1 mg/dL (1.6-2.3); Potassium 3.1 mmol/L (3.4-5.0); Sodium 134 mmol/L (137-145)
--- NOTE | 2021-01-10 07:17 | PCOTNOTE ---
Will complete OT evaluation after orthopedic surgery is completed, will follow.
[2021-01-10] MEDS: METOPROLOL TARTRATE 50 MG TAB PO ×2 (09:37→21:48)
[2021-01-10] MEDS: SERTRALINE HCL 50 MG TABLET PO (09:38)
--- NOTE | 2021-01-10 10:20 | PCPTNOTE ---
Will complete PT evaluation after orthopedic surgery is completed, will follow.
[2021-01-10] MEDS: KCL 20 MEQ/SW 100 ML 100 ML 50 MEQ IVPB (11:22)
--- NOTE | 2021-01-10 12:50 | WPDANESEPPF ---
Anes - Initial Pre Proc Eval Procedure: Operation Date: 01/10/21 14:30 Proposed Procedures p Open Reduction Internal Fixation Right Distal Radius Fracture - Dameon Benson MD Date/Time: 01/10/21 12:50 Surgeon: Christy Heath PA-C Pre Op Diagnosis: distal radius fracture Patient Data Age: 80 Gender: F Height: 1.57 m Weight: 84.9 kg Last Vital Signs Temp 35.7 C L 01/10/21 07:30 Pulse 70 01/10/21 09:37 Resp 13 01/10/21 07:30 BP 131/63 01/10/21 07:30 Pulse Ox 98 01/10/21 07:30 Allergies Allergy/AdvReac Type Severity Reaction Status Date / Time No Known Allergies Allergy Unverified 12/27/20 14:02 Home Medications Medication Instructions Recorded Confirmed Type cholecalciferol (vitamin D3) 25 25 mcg PO DAILY 02/09/20 01/09/21 History mcg (1,000 unit) capsule lisinopril 20 1 tablet PO DAILY #30 tablet 07/25/20 01/09/21 Rx mg-hydrochlorothiazide 25 mg tablet duloxetine 20 mg capsule,delayed 20 mg PO DAILY cap 08/23/20 01/09/21 History release rivastigmine tartrate 4.5 mg 4.5 mg PO BID #30 cap 08/23/20 01/09/21 Rx capsule sertraline 50 mg tablet 50 mg PO DAILY #30 tablet 08/23/20 01/09/21 Rx albuterol sulfate 90 mcg/actuation 1 - 2 puff INHALATION Q4-6H PRN 10/03/20 01/09/21 Rx aerosol inhaler #8.5 gm ondansetron HCl 4 mg tablet 4 mg PO Q6H PRN #20 tablet 12/07/20 01/09/21 Rx apixaban [Eliquis] 2.5 mg PO DAILY 01/09/21 01/09/21 History atorvastatin 40 mg PO HS 01/09/21 01/09/21 History azelastine 1 spray INTRANASAL PRN PRN 01/09/21 01/09/21 History clonazepam 1 mg PO HS 01/09/21 01/09/21 History metoprolol tartrate 50 mg PO BID 01/09/21 01/09/21 History omeprazole 40 mg PO DAILY 01/09/21 01/09/21 History sennosides-docusate sodium 1 tab-cap PO PRN PRN 01/09/21 01/09/21 History [Senna-S] Laboratory Tests 01/09/21 01/10/21 01/10/21 17:58 06:04 06:04 WBC 6.6 K/mm3 K/mm3 (4.5-10.0) RBC 3.43 M/mm3 L M/mm3 (4.2-5.4) Hgb 9.6 g/dL L g/dL (12.0-15.0) Hct 30.1 % L % (37.0-47.0) MCV 87.8 fl fl (80-100) MCH 28.0 pg pg (26-34) MCHC 31.9 g/dl L g/dl (32-36) RDW 13.9 % % (11.5-14.5) Plt Count 279 k/mm3 k/mm3 (150-375) MPV 9.8 fl fl (7.4-10.4) Immature Gran % (Auto) 0.3 % % (0-0.5) Neut % (Auto) 69.8 % % (45.5-73.1) Lymph % (Auto) 17.5 % L % (18.3-44.2) [place] % (Auto) 10.2 % H % (2.6-8.5) Eos % (Auto) 1.4 % % (0-4.4) Baso % (Auto) 0.8 % % (0.2-1.2) Lymph # (Auto) 1.15 K/mm3 K/mm3 (0.9-3.2) [place] # (Auto) 0.7 K/mm3 H K/mm3 (0.1-0.6) Eos # (Auto) 0.1 K/mm3 K/mm3 (0-0.3) Baso # (Auto) 0.1 K/mm3 K/mm3 (0.0-0.1) Abs Immat Gran (auto) 0.02 K/mm3 K/mm3 (0.00-0.031) Absolute Neuts (auto) 4.6 K/mm3 K/mm3 (1.3-6.7) Absolute Nucleated RBC 0.0 K/mm3 K/mm3 (0.0-0.012) Nucleated RBC % 0.0 % % (0.0-0.2) Sodium 134 mmol/L L mmol/L (137-145) Potassium 3.1 mmol/L L mmol/L (3.4-5.0) Chloride 103 mmol/L mmol/L (98-107) Carbon Dioxide 23 mmol/L mmol/L (22-30) Anion Gap 8 mmol/L mmol/L (8-16) BUN 13 mg/dL mg/dL (7-17) Creatinine 0.60 mg/dL L mg/dL (0.7-1.0) Estim Creat Clear Calc 66 ml/min ml/min Estimated GFR > 60 (59 - ) Glucose 113 mg/dL H mg/dL (65-110) Lactic Acid Calcium 8.7 mg/dL mg/dL (8.4-10.2) Phosphorus 4.0 mg/dL mg/dL (2.5-4.5) Magnesium 2.1 mg/dL mg/dL (1.6-2.3) Total Bilirubin 0.5 mg/dL mg/dL (0.2-1.3) AST 27 U/L U/L (14-36) ALT 10 U/L U/L (4-35) Alkaline Phosphatase 80 U/L U/L (38-126) Total Protein 6.0 g/dL L g/dL (6.3-8.2) Albumin 3.3 g/dL L g/dL (3.5-5.1) Vitamin D
--- NOTE | 2021-01-10 13:16 | PM.IMPN ---
Progress Note: A&P Assessment and Plan (1) Distal radius fracture, right: Code(s): S52.501A - Unspecified fracture of the lower end of right radius, initial encounter for closed fracture Status: Acute Assessment and Plan: X-ray consistent with fracture and the patient is currently in a hard cast -she sees Dr. Benson who plans to take her to the OR today -patient will need placement as she just got her left hip replaced and now she has a right arm fracture. She is left-handed which is helpful but I do think she will still need more assistance -anticoagulation per Ortho (2) Essential hypertension: Code(s): I10 - Essential (primary) hypertension Status: Chronic Assessment and Plan: Last blood pressure 131/63 -Continue with lisinopril, hydrochlorothiazide and metoprolol (3) Hyperlipidemia: Code(s): E78.5 - Hyperlipidemia, unspecified Status: Chronic Assessment and Plan: Chronic, Continue with atorvastatin (4) Vertigo: Code(s): R42 - Dizziness and giddiness Status: Acute Assessment and Plan: Intermittent for the last few years likely worsened with anesthesia and pain medication -brain CT showed no acute pathology. No neurological deficits on exam (5) Depression: Code(s): F32.9 - Major depressive disorder, single episode, unspecified Status: Chronic Assessment and Plan: Chronic and controlled. Continue with sertraline (6) Anxiety: Code(s): F41.9 - Anxiety disorder, unspecified Status: Chronic Assessment and Plan: Chronic and controlled. Continue with clonazepam. (7) Asthma: Code(s): J45.909 - Unspecified asthma, uncomplicated Status: Acute Assessment and Plan: Chronic, no evidence of active flare (8) GERD (gastroesophageal reflux disease): Code(s): K21.9 - Gastro-esophageal reflux disease without esophagitis Status: Acute Assessment and Plan: Continue with pantoprazole (9) Obstructive sleep apnea: Code(s): G47.33 - Obstructive sleep apnea (adult) (pediatric) Status: Chronic Assessment and Plan: Continue with home settings for a CPAP. Time Spent With Patient Time with patient: 25 - 35 minutes Subjective Date/time seen: 01/10/21 13:16 Interval history: Pt is a 80-year-old female here for wrist fracture. Patient was seen today and states her pain is doing better. She currently rates it as 6/10 and she just got pain medications. She says her dizziness has improved. She says this has been intermittent for many years and worse after surgery. She has no complaints today. She has not had a bowel movement in about 5 days. No numbness or tingling to the arm, chest pain, shortness of breath, fevers, chills, nausea or vomiting. Review of Systems Review of Systems: All systems reviewed & are unremarkable except as noted in HPI and below Exam Narrative: General: Well developed well nourished patient in NAD HEENT: normocephalic Neck: supple Neuro: Alert and oriented x4 CV:RRR Resp:CTA Abd: Soft, non distended. No pain to palpation. Positive bowel sounds Extremities: No swelling, erythema, or pain to palpation to lower extremities. Right forearm in hard cast and able to move fingers independently. Sensation intact Objective Data Vital Signs Vital Signs: Vital Signs - 24 hr 01/09/21 14:01 01/09/21 16:00 01/09/21 17:43 Temperature Pulse Rate 66 70 Respiratory Rate 14 20 Blood Pressure 153/70 H 140/82 136/63 Pulse Oximetry 100 95 01/09/21 17:45 01/09/21 20:38 01/09/21 22:00 Temperature 98.6 F Pulse Rate 83 77 Respiratory Rate 18 Blood Pressure 111/66 118/56 L Pulse Oximetry 98 01/10/21 04:00 01/10/21 06:00 01/10/21 07:30 Temperature 98.4 F 98.4 F 96.2 F L Pulse Rate 74 74 67 Respiratory Rate 18 18 13 Blood Pressure 137/63 137/63 131/63 Pulse Oxim
--- NOTE | 2021-01-10 13:24 | PC.NURSE ---
On 01/10/21, the student, [ Sheron Alonzo], provided care and completed [facility] documentation on this patient. I have reviewed the student's documentation and agree with the findings.
[2021-01-10] MEDS: LACTATED RINGERS 1,000 ML 30 ML IV CONT (13:45)
--- NOTE | 2021-01-10 13:59 | P.HPUP_ITS ---
History and Physical Update Update Date/Time: 01/10/21 13:59 History and Physical has been reviewed, including an updated exam of the patient. There are NO changes in the patient's condition.Pt does report some tingling to light touch radial tip of ring finger. Intact light touch other di gits without tingling. Risks, benefits, and alternatives have been discussed and questions answered. Patient agrees to proceed with procedure.
[2021-01-10] MEDS: ceFAZolin 2 GM/D5W 50 ML 2 GM/50 ML BAG IVPB (14:16)
[2021-01-10] MEDS: ceFAZolin SODIUM 1 GM VIAL IRRIGATION (14:39)
--- NOTE | 2021-01-10 15:01 | SUR.OPER ---
ARRIVES WITH DEPENDS ON. NO AGGARWAL PER DR MATIAS. PRE OP RIGHT HAND FINGERS WARM + SENSATION ALL FINGERS. +1 CAPILLARY REFILL. PATIENT WITH RIGHT RING FINGER TINGLING. ABLE TO WIGGLE ALL FINGERS. SPLINT ON. SPLINT OFF PER Yue TREJO IN OR AND CLEANED WITH LIGIA PREP PER DR MATIAS.
--- NOTE | 2021-01-10 15:41 | W.PM.PROC2 ---
Procedure Note - Detailed Date of Procedure 01/10/21 Pre-op Diagnosis Right distal radius fracture Post-op Diagnosis same Procedure Performed Open reduction internal fixation right distal radius fracture 2 part. Surgeon Dameon Benson MD [employer]. Anesthesia general Indications Severe comminution and displacement Findings Severe comminution and displacement Description of Procedure Patient was brought to the operating room and general anesthesia was administered. She received vancomycin 2 g of Ancef preoperatively. The right arm was prepped draped usual fashion. We moved to the operating table we removed the splint and carefully scrubbed her with the Russell prep cloth before formal prep and drape. Limb was exsanguinated tourniquet elevated to 250 mmHg. 15 lb fingertrap traction was applied. A 3-1/2 inch longitudinal incision was made over the flexor carpi radialis tendon dissection was carried down to the tendon sheath which was incised and we entered the floor of the tendon sheath and retracted the flexor pollicis longus muscle belly ulnarly. There was marked damage to the pronator quadratus and there was volar comminution which fortunately was 1 sq piece that had distal soft tissues attached that we could push back into anatomic position. The proximal pronator quadratus it was intact was incised along its radial border and elevated off the volar surface of the distal radial metaphysis. The bone clamp on the shaft we controlled the rotation and held the fracture reduced while we applied the innovation locking 8 hole with the narrow head 6 pin holes distally 3 shaft screws on the proximal part. This was pinned the shaft after we confirmed radiographically its proper position. We placed the screw in the oval hole and tightened this down we had the plate in perfect position with respect to mediolateral and proximal distal and then we inserted a guide pin in the central hole the distal part of the plate which past 2 mm under the subchondral bone line confirm we had the optimal position. We then placed 6 locking pins the length of each 2 mm short of the dorsal cortical surface. Took the traction off for the ulnar 2 pins and then reapplied the traction loose in the oval hole and translated the shaft metaphysis portion couple of mm in the radial direction to achieve optimal anatomic alignment this was tightened after release of traction to allow the fracture to settle in position without leaving residual distraction and we placed the 2 cortical holes the remaining 2 cortical screw holes and we changed the middle screw to a shorter 1 as it was too long. The wound was irrigated with antibiotic solution. She received 3rd g Ancef. We put the tourniquet down we were putting the shaft screws in hemostasis was achieved. The skin was closed with 3-0 subcutaneous Vicryl after allowing the pronator quadratus to rest over the plate. The was applied the skin and she was placed in a volar and dorsal OCL splints for immobilization transferred to recovery room good condition. No known complications. Implants [place] locking plate Estimated Blood Loss 25 Urine Output 50 Drains No Packing No Pathology none sent Complications No immediate complications Condition stable Disposition PACU
[2021-01-10] MEDS: fentaNYL CITRATE INJ (*CRX) 100 MCG/2 ML VIAL 25 MCG IV PUSH ×2 (16:09→16:12)
[2021-01-10] MEDS: SODIUM CHLORIDE 0.9% IV 1,000 ML 125 ML IV CONT (17:20)
[2021-01-10] MEDS: MORPHINE SULFATE (*CRX) 2 MG/ML INJ IV PUSH (17:33)
[2021-01-10] MEDS: ACETAMINOPHEN 500 MG TABLET 1000 MG PO (17:33)
[2021-01-10] MEDS: DULoxetine HCL 20 MG CAPSULE.DR PO (18:24)
[2021-01-10] MEDS: CHOLECALCIFEROL 1,000 UNITS TABLET 1000 UNITS PO (18:24)
[2021-01-10] MEDS: RIVASTIGMINE TARTRATE 1.5 MG CAPSULE 4.5 MG PO ×2 (18:24→18:30)
[2021-01-10] MEDS: lisinopriL 20 MG TABLET PO (18:25)
[2021-01-10] MEDS: PANTOPRAZOLE 40 MG TABLET PO ×2 (18:25→18:30)
[2021-01-10] MEDS: hydroCHLOROthiazide 25 MG TABLET PO (18:25)
[2021-01-10] MEDS: ATORVASTATIN 40 MG TABLET PO (21:47)
[2021-01-10] MEDS: FAMOTIDINE 20 MG TABLET PO (21:48)
[2021-01-10] MEDS: clonazePAM (*CRX) 0.5 MG TABLET 1 MG PO (22:09)
[2021-01-11] VITALS (11 sets, daily range): BP systolic 103–147; BP diastolic 50–92; PULSE 61–78; RESP 15–20; TEMP 36.1–36.8; O2SAT 97–100
[2021-01-11] MEDS: ACETAMINOPHEN 500 MG TABLET 1000 MG PO ×4 (00:03→17:06)
[2021-01-11] MEDS: SODIUM CHLORIDE 0.9% IV 1,000 ML 125 ML IV CONT (05:13)
[2021-01-11 06:22] LABS: Hematocrit 30.5 % (37.0-47.0); Hemoglobin 9.8 g/dL (12.0-15.0); Mean Corpuscular HGB Conc 32.1 g/dl (32-36); Mean Corpuscular Hemoglobin 28.6 pg (26-34); Mean Corpuscular Volume 88.9 fl (80-100); Mean Platelet Volume 9.8 fl (7.4-10.4); Platelet Count Result 246 k/mm3 (150-375); Red Blood Count 3.43 M/mm3 (4.2-5.4); Red Cell Distribution Width 13.2 % (11.5-14.5); White Blood Count 11.2 K/mm3 (4.5-10.0)
[2021-01-11 06:42] LABS: Anion Gap 9 mmol/L (8-16); Blood Urea Nitrogen 10 mg/dL (7-17); Calcium 8.6 mg/dL (8.4-10.2); Carbon Dioxide 25 mmol/L (22-30); Chloride 101 mmol/L (98-107); Estimated CRCL calculation 66 ml/min; Estimated Glomerular Filt Rate > 60; Glucose 123 mg/dL (65-110); Magnesium 2.1 mg/dL (1.6-2.3); Potassium 3.2 mmol/L (3.4-5.0); Sodium 135 mmol/L (137-145)
[2021-01-11] MEDS: APIXABAN 2.5 MG TABLET PO ×2 (09:56→17:06)
[2021-01-11] MEDS: CHOLECALCIFEROL 1,000 UNITS TABLET 1000 UNITS PO (09:57)
[2021-01-11] MEDS: FAMOTIDINE 20 MG TABLET PO ×2 (09:58→20:50)
[2021-01-11] MEDS: DULoxetine HCL 20 MG CAPSULE.DR PO (09:58)
[2021-01-11] MEDS: hydroCHLOROthiazide 25 MG TABLET PO (09:59)
[2021-01-11] MEDS: lisinopriL 20 MG TABLET PO (09:59)
[2021-01-11] MEDS: METOPROLOL TARTRATE 50 MG TAB PO (10:00)
[2021-01-11] MEDS: PANTOPRAZOLE 40 MG TABLET PO ×2 (10:01→17:06)
[2021-01-11] MEDS: RIVASTIGMINE TARTRATE 1.5 MG CAPSULE 4.5 MG PO ×2 (10:01→17:05)
[2021-01-11] MEDS: SERTRALINE HCL 50 MG TABLET PO (10:02)
[2021-01-11] MEDS: SENNA/DOCUSATE SODIUM TABLET 1 TAB PO (10:02)
[2021-01-11 10:10] LABS: Glucose Point of Care 84 mg/dl (65-105)
--- NOTE | 2021-01-11 12:44 | PM.IMPN ---
Progress Note: A&P Assessment and Plan (1) Vertigo: Code(s): R42 - Dizziness and giddiness Status: Acute Assessment and Plan: She has a history of vertigo but now is complaining of fuzziness since her last surgery -CT of the brain initially was negative on 01/09 and says she is on Eliquis I repeated it today which was negative again -will check orthostatic blood pressures. I have asked the nurse to call me with these results -will stop narcotic pain medication and continue with Tylenol -at this time I am going to hold her metoprolol and hydrochlorothiazide and see how she does -consider Sacha hose -will need SNF placement -monitor -if these changes do not improve, consider trial of meclizine (2) Distal radius fracture, right: Code(s): S52.501A - Unspecified fracture of the lower end of right radius, initial encounter for closed fracture Status: Acute Assessment and Plan: X-ray consistent with fracture -postop day 1 of open reduction with internal fixation -she sees Dr. Benson -patient will need placement as she just got her left hip replaced and now she has a right arm fracture. She is left-handed which is helpful but I do think she will still need more assistance -anticoagulation per Ortho -will need SNF (3) Essential hypertension: Code(s): I10 - Essential (primary) hypertension Status: Chronic Assessment and Plan: Last blood pressure 38/50 -Continue with lisinopril -hold hydrochlorothiazide and metoprolol -obtain orthostatic blood pressures (4) Hyperlipidemia: Code(s): E78.5 - Hyperlipidemia, unspecified Status: Chronic Assessment and Plan: Chronic, Continue with atorvastatin (5) Depression: Code(s): F32.9 - Major depressive disorder, single episode, unspecified Status: Chronic Assessment and Plan: Chronic and controlled. Continue with sertraline (6) Anxiety: Code(s): F41.9 - Anxiety disorder, unspecified Status: Chronic Assessment and Plan: Chronic and controlled. Continue with clonazepam. (7) Asthma: Code(s): J45.909 - Unspecified asthma, uncomplicated Status: Acute Assessment and Plan: Chronic, no evidence of active flare (8) GERD (gastroesophageal reflux disease): Code(s): K21.9 - Gastro-esophageal reflux disease without esophagitis Status: Acute Assessment and Plan: Continue with pantoprazole (9) Obstructive sleep apnea: Code(s): G47.33 - Obstructive sleep apnea (adult) (pediatric) Status: Chronic Assessment and Plan: Continue with home settings for a CPAP. Subjective Date/time seen: 01/11/21 12:44 Interval history: Pt is a 80-year-old female here for wrist fracture. Patient was seen today and states that her pain is well controlled. She has no complaints of wrist or hip pain at this time. We talked a lot about her dizziness/fuzziness. Patient states she has a long history of intermittent vertigo that she still continues to have occasionally. Since her hip surgery, she has had a different feeling which she describes as fuzziness . She says she has never had this before and she feels weak when this happens. She says it has been pretty constant since her hip surgery. She has not noticed any neurological deficits although she does have a history of dementia and is aware that she has that. She thought maybe the anesthesia or the pain medication was causing this. She says the fuzziness is worse when she sits up or walks around. It is better when she lays back in bed. No history of orthostatic hypotension that she knows of. Exam Narrative: General: Well developed well nourished patient in NAD HEENT: normocephalic Neck: supple Neuro: Alert and oriented x4 CV:RRR Resp:CTA Abd: Soft, non distended. No pain to palpation. Positive bowel sounds Extremities: No swelling, shyam
--- NOTE | 2021-01-11 15:48 | PC.NURSE ---
On 01/11/21, the student, Margaret Mederos, provided care and completed [facility] documentation on this patient. I have reviewed the student's documentation and agree with the findings.
--- NOTE | 2021-01-11 16:22 | PM.PNORT ---
Progress Note: A&P Additional Plan Patient is postoperative day 1. After open reduction internal fixation of right distal radius fracture with volar locking plate. She states she has no pain and rates her discomfort at 1/10 in the right wrist. She reports intact light touch sensation all 5 digits today. The tingling that she had preoperatively and the radial border of the ring finger is resolved. She did have a hallucination earlier this morning believing she saw a boil in her bathroom. She talked to me about this in the was very vivid to her. She seems very alert and oriented now. I will look through her medications and make sure she is not receiving any narcotics as I that might cause confusion she does not seem to need any pain medication now. The hospitalist service is working her up for evaluation of syncope. I feel it would be best to keep her on the Eliquis at DVT prophylaxis doses for 2 weeks until we see her in the office as she is going to be at some increased risk for DVT being 1 month out after hip replacement surgery and now another anesthetic. Subjective Subjective Date/Time Seen: 01/11/21 16:22 Objective Data Vital Signs Vital Signs: Vital Signs - 24 hr 01/10/21 16:30 01/10/21 16:43 01/10/21 16:55 Temperature 36.3 C L Pulse Rate 65 67 69 Respiratory Rate 11 L 16 16 Blood Pressure 139/74 124/61 143/57 H Pulse Oximetry 96 97 98 01/10/21 17:10 01/10/21 18:40 01/10/21 20:00 Temperature 36.3 C L 36.2 C L 36.6 C Pulse Rate 69 72 74 Respiratory Rate 16 20 18 Blood Pressure 145/59 H 136/61 131/61 Pulse Oximetry 97 96 97 01/10/21 21:48 01/10/21 22:31 01/11/21 00:00 Temperature 36.6 C 36.4 C L Pulse Rate 88 74 61 Respiratory Rate 18 20 Blood Pressure 131/61 145/55 H Pulse Oximetry 97 98 01/11/21 04:00 01/11/21 08:00 01/11/21 10:00 Temperature 36.8 C 36.8 C Pulse Rate 69 66 72 Respiratory Rate 20 15 Blood Pressure 147/60 H 103/55 L Pulse Oximetry 98 97 01/11/21 12:00 01/11/21 12:50 01/11/21 12:52 Temperature 36.1 C L Pulse Rate 61 63 61 Respiratory Rate 18 Blood Pressure 138/50 L 139/63 143/61 H Pulse Oximetry 100 100 99 01/11/21 12:54 Temperature Pulse Rate 61 Respiratory Rate Blood Pressure 140/50 L Pulse Oximetry 99 Intake/Output Intake/Output: Intake & Output 01/08/21 01/09/21 01/10/21 01/11/21 23:59 23:59 23:59 23:59 Intake Total 2939 581 8543 Output Total 200 1100 Balance 4955 973 2176 Meds/Results Medications: Active Medications Generic Name Dose Route Start Last Admin Trade Name Freq PRN Reason Stop Dose Admin Acetaminophen 1,000 mg 01/10/21 18:00 01/11/21 12:54 Acetaminophen 500 Mg Tablet PO 1,000 mg Q6HR ALCON Administration Albuterol 1 puff 01/09/21 17:36 Albuterol Sulfate (*Sp) Aerosol 1 Puff INHALATION Q4-6H PRN shortness of breath or wheezing Apixaban 2.5 mg 01/11/21 09:00 01/11/21 09:56 Apixaban 2.5 Mg Tablet PO 2.5 mg BID ALCON Administration Atorvastatin Calcium 40 mg 01/09/21 21:00 01/10/21 21:47 Atorvastatin 40 Mg Tablet PO 40 mg HS ALCON Administration Azelastine HCl 1 spray 01/09/21 17:36 Azelastine Hcl Nasal 0.1% 137 Mcg/Spr 30 Ml Btl NASAL PRN PRN ALLERGIES Clonazepam 1 mg 01/09/21 21:00 01/10/21 22:09 Clonazepam (*Crx) 0.5 Mg Tablet PO 1 mg HS ALCON Administration Duloxetine HCl 20 mg 01/09/21 18:20 01/11/21 09:58 Duloxetine Hcl 20 Mg Capsule.Dr PO 20 mg DAILY ALCON Administration Famotidine 20 mg 01/10/21 21:00 01/11/21 09:58 Famotidine 20 Mg Tablet PO 20 mg Q12HR ALCON Administration Hydrochlorothiazide 25 mg 01/09/21 18:25 01/11/21 09:59 Hydrochlorothiazide 25 Mg Tablet PO 25 mg DAILY ALCON Administration Sodium Chloride 1,000 mls @ 125 mls/hr 01/10/21 16:46 01/11/21 05:13 Normal Saline Iv IV CONT 125 mls/hr .Q8H ALCON Administration Lisinopril 20 mg 01/09/21 18:20 01/11/21 09:59 Lisinopril 20
[2021-01-11] MEDS: POTASSIUM CHLORIDE 20 MEQ TABLET 40 MEQ PO (17:05)
[2021-01-11] MEDS: clonazePAM (*CRX) 0.5 MG TABLET 1 MG PO (20:49)
[2021-01-11] MEDS: ATORVASTATIN 40 MG TABLET PO (20:50)
[2021-01-12] MEDS: ACETAMINOPHEN 500 MG TABLET 1000 MG PO (05:13)
[2021-01-12] MEDS: MAGNESIUM HYDROXIDE SUSP 30 ML UDC PO (05:13)
[2021-01-12 05:53] VITALS: BP 142/55; PULSE 67; RESP 18; TEMP 36.3; O2SAT 98
[2021-01-12 06:59] LABS: Hematocrit 29.6 % (37.0-47.0); Hemoglobin 9.4 g/dL (12.0-15.0); Mean Corpuscular HGB Conc 31.8 g/dl (32-36); Mean Corpuscular Hemoglobin 27.6 pg (26-34); Mean Corpuscular Volume 87.1 fl (80-100); Mean Platelet Volume 10.1 fl (7.4-10.4); Platelet Count Result 258 k/mm3 (150-375); Red Cell Distribution Width 13.4 % (11.5-14.5); White Blood Count 9.5 K/mm3 (4.5-10.0)
[2021-01-12 07:22] LABS: Anion Gap 7 mmol/L (8-16); Blood Urea Nitrogen 11 mg/dL (7-17); Calcium 8.8 mg/dL (8.4-10.2); Carbon Dioxide 29 mmol/L (22-30); Chloride 100 mmol/L (98-107); Estimated CRCL calculation 66 ml/min; Estimated Glomerular Filt Rate > 60; Glucose 111 mg/dL (65-110); Sodium 136 mmol/L (137-145)
[2021-01-12] MEDS: SERTRALINE HCL 50 MG TABLET PO (09:20)
[2021-01-12] MEDS: lisinopriL 20 MG TABLET PO (09:20)
[2021-01-12] MEDS: CHOLECALCIFEROL 1,000 UNITS TABLET 1000 UNITS PO (09:20)
[2021-01-12] MEDS: FAMOTIDINE 20 MG TABLET PO (09:20)
[2021-01-12] MEDS: APIXABAN 2.5 MG TABLET PO (09:20)
[2021-01-12] MEDS: PANTOPRAZOLE 40 MG TABLET PO (09:20)
[2021-01-12] MEDS: RIVASTIGMINE TARTRATE 1.5 MG CAPSULE 4.5 MG PO (09:20)
[2021-01-12] MEDS: DULoxetine HCL 20 MG CAPSULE.DR PO (09:20)
--- NOTE | 2021-01-12 10:26 | PM.DS ---
DS: Admitting Diagnosis Discharge Date 01/12/2021 Admitting Diagnosis Distal radial fracture DS: Discharge Diagnosis Discharge Diagnosis (1) Vertigo: Code(s): R42 - Dizziness and giddiness Status: Acute Assessment and Plan: She has a history of vertigo but now is complaining of fuzziness since her last surgery -CT of the brain initially was negative on 01/09 and says she is on Eliquis I repeated it which was negative again -she is not orthostatic -narcotic pain medications were stopped, patient has Tylenol as needed -hydrochlorothiazide stopped, although patient states she does not think she has been taking it -day of discharge patient states she is at baseline. She has struggled with vertigo on and off for many years but says she is feeling better (2) Distal radius fracture, right: Code(s): S52.501A - Unspecified fracture of the lower end of right radius, initial encounter for closed fracture Status: Acute Assessment and Plan: X-ray consistent with fracture -patient underwent an open reduction with internal fixation -she sees Dr. Benson -patient originally requested to go to SNF but improved greatly during admission. She would like to go home with her who is there to help her. At any point if she feels unsafe or that she needs SNF, she is to follow up with her primary care physician -anticoagulation per Ortho, continue Eliquis (3) Essential hypertension: Code(s): I10 - Essential (primary) hypertension Status: Chronic Assessment and Plan: Last blood pressure 142/55 -Continue with home medications (4) Hyperlipidemia: Code(s): E78.5 - Hyperlipidemia, unspecified Status: Chronic Assessment and Plan: Chronic, Continue with atorvastatin (5) Depression: Code(s): F32.9 - Major depressive disorder, single episode, unspecified Status: Chronic Assessment and Plan: Chronic and controlled. Continue with sertraline (6) Anxiety: Code(s): F41.9 - Anxiety disorder, unspecified Status: Chronic Assessment and Plan: Chronic and controlled. Continue with clonazepam. (7) Asthma: Code(s): J45.909 - Unspecified asthma, uncomplicated Status: Acute Assessment and Plan: Chronic, no evidence of active flare (8) GERD (gastroesophageal reflux disease): Code(s): K21.9 - Gastro-esophageal reflux disease without esophagitis Status: Acute Assessment and Plan: Continue with pantoprazole (9) Obstructive sleep apnea: Code(s): G47.33 - Obstructive sleep apnea (adult) (pediatric) Status: Chronic Assessment and Plan: Continue with home settings for a CPAP. DS: Summary Hospital Course Hospital Course: Date of service 01/12/2021 Patient is a 80-year-old female who recently had an elective left hip replacement who presented emergency room for a fall with wrist deformity. Patient has a longstanding history of vertigo and dizziness which was worse after her surgery and pain medication. She said she got up and felt dizzy and fell to the ground. Vitals in the ER were temperature 98.1?, pulse 67, respiratory rate 14, blood pressure 133/68, pulse ox 100 on room air. White blood cell count 7.6, hemoglobin 10.8, hematocrit 33.6, platelets 306. BMP relatively normal. X-ray showed acute nondisplaced right ulnar boothe noted process fracture. Patient was admitted to the hospitalist service and underwent a open reduction with internal fixation of the right wrist without complications. The patient did have some dizziness throughout her stay which she said was chronic. She thinks it was worse after surgery with anesthesia and the pain medications. She was not orthostatic. Brain CT x2 was negative. No neurological deficits. The day of discharge the patient was feeling well enough that she wanted to go home. She did well with
== END 2021-01-12 13:06 | disposition home health service (06) | DRG 512 ==
LOC: ANHED 14:01 → ANH3MEDSUR 16:55
PROVIDERS: Nurse Practitioner; Orthopaedic Surgery; Physician Assistant; Physician Assistant Surgical; Admitting Provider Internal Medicine; Emergency Provider Emergency Medicine; PCP Family Medicine; Visit Provider Internal Medicine
PROC: 0PSH04Z Reposition Right Radius with Internal Fixation Device, Open Approach (ICD-10-PCS; CPT 25575; principal; 2021-01-10 14:30)
DX: S52.501A Unspecified fracture of the lower end of right radius, initial encounter for closed fracture (principal); W18.30XA Fall on same level, unspecified, initial encounter; R42 Dizziness and giddiness; F03.90 Unspecified dementia, unspecified severity, without behavioral disturbance, psychotic disturbance, mood disturbance, and anxiety; I10 Essential (primary) hypertension; E78.5 Hyperlipidemia, unspecified; F32.9 Major depressive disorder, single episode, unspecified; F41.9 Anxiety disorder, unspecified; J45.909 Unspecified asthma, uncomplicated; K21.9 Gastro-esophageal reflux disease without esophagitis; G47.33 Obstructive sleep apnea (adult) (pediatric); Z96.642 Presence of left artificial hip joint; Z96.653 Presence of artificial knee joint, bilateral; Z79.899 Other long term (current) drug therapy; Z98.49 Cataract extraction status, unspecified eye
CPT/HCPCS: 25605; 36415; 70450; 73070; 73080; 73100; 73110; 73200; 73502; 80048; 80053; 82306; 82948; 83605; 83735; 84100; 84443; 85025; 85027; 93005; 96361; 96365; 96366; 96367; 96374; 96375; 96376; 97116; 97161; 97165; 97535; 99285; A4565; A9270; C1713; G0378; J0690; J1100; J2270; J2405; J2704; J3010; J3370; J3480; J7030; J7120

== ENCOUNTER 2021-02-02 14:10 | Outpatient (CLI) | payer MEDICARE, OTHER, SELFPAY ==
[2021-02-02 14:36] LABS: Basophils Percent Auto 0.4 % (0.2-1.2); Eosinophils Absolute Auto 0.1 K/mm3 (0-0.3); Eosinophils Percent Auto 1.8 % (0-4.4); Hemoglobin 10.7 g/dL (12.0-15.0); Immature Granulocyte Absolute 0.02 K/mm3 (0.00-0.031); Immature Granulocyte Percent A 0.3 % (0-0.5); Lymphocytes Absolute Auto 1.21 K/mm3 (0.9-3.2); Lymphocytes Percent Auto 16.7 % (18.3-44.2); Mean Corpuscular HGB Conc 31.5 g/dl (32-36); Mean Corpuscular Hemoglobin 28.8 pg (26-34); Mean Corpuscular Volume 91.4 fl (80-100); Mean Platelet Volume 9.5 fl (7.4-10.4); Monocytes Absolute Auto 0.6 K/mm3 (0.1-0.6); Monocytes Percent Auto 8.4 % (2.6-8.5); Neutrophils Absolute Auto 5.3 K/mm3 (1.3-6.7); Neutrophils Percent Auto 72.4 % (45.5-73.1); Platelet Count Result 274 k/mm3 (150-375); Red Blood Count 3.72 M/mm3 (4.2-5.4); Red Cell Distribution Width 14.6 % (11.5-14.5); White Blood Count 7.3 K/mm3 (4.5-10.0)
[2021-02-02 20:49] LABS: Alanine Aminotransferase 13 U/L (4-35); Alkaline Phosphatase 76 U/L (38-126); Anion Gap 8 mmol/L (8-16); Aspartate Amino Transferase 20 U/L (14-36); Bilirubin,Total 0.3 mg/dL (0.2-1.3); Blood Urea Nitrogen 12 mg/dL (7-17); Carbon Dioxide 26 mmol/L (22-30); Chloride 106 mmol/L (98-107); Estimated Glomerular Filt Rate > 60; Glucose 119 mg/dL (65-110); Potassium 3.6 mmol/L (3.4-5.0); Sodium 140 mmol/L (137-145)
== END 2021-02-02 14:11 | disposition home or self-care (01) ==
PROVIDERS: PCP Family Medicine; Visit Provider Nurse Practitioner Family
DX: D64.9 Anemia, unspecified (principal)
CPT/HCPCS: 36415; 80053; 85025

== ENCOUNTER 2021-09-08 14:18 | Outpatient (CLI) | payer MEDICARE, OTHER, SELFPAY ==
--- NOTE | ~2021-09-08 | MM_ITS ---
EXAMINATION: MM screening tatiana BI w zay HISTORY: Screening TECHNIQUE: Craniocaudal and mediolateral oblique 3-D tomosynthesis images were obtained and synthetic 2-D images were generated. CAD analysis was submitted and interpreted. COMPARISON: Comparison to multiple prior studies sequentially, with oldest reviewed study dated 03/29. BREAST PARENCHYMAL COMPOSITION: Breast composed of scattered areas of fibroglandular density FINDINGS: There is a developing cluster of calcifications in the lower inner quadrant of the right br east posteriorly. The left breast is stable without evidence for malignancy. IMPRESSION: 1. Developing cluster of right breast calcifications. 2. Magnification views are recommended. BI-RADS Category 0: Incomplete: Needs additional imaging evaluation. Reviewed, dictated and finalized at location A.
== END 2021-09-08 14:19 | disposition home or self-care (01) ==
PROVIDERS: PCP Family Medicine; Visit Provider Nurse Practitioner Family
DX: Z12.31 Encounter for screening mammogram for malignant neoplasm of breast (principal); R92.8 Other abnormal and inconclusive findings on diagnostic imaging of breast
CPT/HCPCS: 77063; 77067

== ENCOUNTER 2021-09-11 14:13 | Outpatient (CLI) | payer MEDICARE, OTHER, SELFPAY | END 2021-09-11 14:14 | disposition home or self-care (01) | LOC: ANHAUDASC 14:14 | PROVIDERS: PCP Family Medicine; Visit Provider Otolaryngology | DX: H91.93 Unspecified hearing loss, bilateral (principal) | CPT/HCPCS: 92557; 92567 ==

== ENCOUNTER 2021-09-15 13:02 | Outpatient (CLI) | payer MEDICARE, OTHER, SELFPAY ==
--- NOTE | ~2021-09-15 | MM_ITS ---
EXAMINATION: MM diagnostic tatiana RT w zay HISTORY: Right breast calcifications on screening mammogram TECHNIQUE: Magnification views of the right breast were performed. 3-D mediolateral tomosynthesis cm ges are also obtained. CAD analysis was submitted and interpreted. COMPARISON: 09/08/2021, 09/29/2019, 09/02/2018 FINDINGS: There are grouped indeterminate calcifications in a linear configuration in the posterior t hird of the lower breast at the 6:00 location 10 cm from the nipple. No associated mass or architectu ral distortion is identified. IMPRESSION: 1. Indeterminate right breast calcifications. 2. Stereotactic biopsy is recommended. BI-RADS category 4, suspicious findings. Reviewed, dictated and finalized at location A.
== END 2021-09-15 13:03 | disposition home or self-care (01) ==
LOC: ANHIMG 13:04
PROVIDERS: PCP Family Medicine; Visit Provider Nurse Practitioner Family
DX: R92.8 Other abnormal and inconclusive findings on diagnostic imaging of breast (principal)
CPT/HCPCS: 77061; 77065; G0279

== ENCOUNTER 2021-09-28 10:59 | Outpatient (CLI) | payer MEDICARE, OTHER, SELFPAY ==
--- NOTE | ~2021-09-28 | MM_ITS ---
EXAMINATION: MM stereotactic bx RT, MM post biopsy diagnostic RT, MM stereotactic specimen RT, Specim en Radiograph, Tissue Marker Clip Placement, Unilateral Mammogram DATE: 09/28/2021 12:14 (accession [id number]), 09/28/2021 12:20 (accession [id number]), 09/28 12:14 (accession [id number]) INDICATION: Abnormal mammogram: Indeterminate grouped microcalcifications in linear configuration in the posterior lower inner quadrant of right breast. TECHNIQUE AND FINDINGS: The risks and potential benefits of the procedure were discussed with the patient and written informe d consent was obtained. Timeout procedure was performed. The patient was placed in the prone position on the dedicated stereotactic table with the right breast in mediolateral compression, and the area of interest was localized and targeted utilizing digital imaging with stereotaxis. After sterile preparation of the skin, 1% lidocaine was utilized for local anesthesia at the skin pun cture site and 1% lidocaine with epinephrine was utilized for deeper local anesthesia/is about the bi opsy site. A 9G HerBabyShower vacuum assisted biopsy needle was advanced to the level of the calcification o f interest from a medial approach utilizing stereotactic guidance and a total of 16 tissue core biops ies were obtained. A specimen radiograph demonstrates that the calcifications of interest are included within the tissue cores. A tissue marker clip was then placed at the biopsy site. A digital mammographic exposure co nfirmed the successful deployment of the biopsy marker. The needle was removed and hemostasis was ac hieved. A sterile bandage was applied. The patient tolerated the procedure well and there is no juwan dence of significant immediate complication. The patient was given verbal as well as written postpro cedural instructions prior to discharge from the department. Tissue cores were submitted to surgical pathology for histologic analysis. A 2-view right unilateral digital mammogram was obtained post procedure, demonstrating the tissue mar ker clip in expected position. All of the microcalcifications of interest were successfully excised by stereotactic biopsy. IMPRESSION: 1. Successful stereotactic biopsy of posterior lower inner quadrant linear array of grouped microca lcifications, followed by tissue marker clip placement. Please refer to pathology report for histolo gic analysis. Reviewed, dictated and finalized at Location A. Reviewed, dictated and finalized at location A. IMPRESSION: 1. Successful stereotactic biopsy of posterior lower inner quadrant linear ar ray of grouped microcalcifications, followed by tissue marker clip placement. Please refer to pathology report for histologic analysis. IMPRESSION: 1. Successful stereotactic biopsy of posterior lower inner quadrant linear ar ray of grouped microcalcifications, followed by tissue marker clip placement. Please refer to pathology report for histologic analysis.
== END 2021-09-28 11:00 | disposition home or self-care (01) ==
PROVIDERS: PCP Family Medicine; Visit Provider Nurse Practitioner Family
DX: R92.8 Other abnormal and inconclusive findings on diagnostic imaging of breast (principal); R92.1 Mammographic calcification found on diagnostic imaging of breast
CPT/HCPCS: 19081; 77065; 88305; A4648

== ENCOUNTER → 2021-10-12 12:32 | Outpatient (CLI) | payer MEDICARE, OTHER, SELFPAY ==
--- NOTE | ~2021-10-12 | CT_ITS ---
EXAMINATION: CT soft tissue neck w con DATE: 10/12/2021 13:26 INDICATION: Localized enlarged lymph nodes. Pharyngeal mass. Retropharyngeal mass. TECHNIQUE: Computed tomography (CT) of the neck was performed with 75 mL Omnipaque 300 intravenous co ntrast. Automated exposure control and iterative reconstruction technique were employed. The dose-mary gth product was 458.27 mGy-cm. COMPARISON: CT cervical spine 08/28/15 FINDINGS: There is a 4 mm nodule in left thyroid lobe, likely not clinically significant. There is a 3.6 x 1.4 x 0.7 cm left retropharyngeal lipoma. There are no pathologically enlarged lymph nodes. The cervical carotid arteries are normal. There is severe cervical spondylosis. IMPRESSION: 1. Left retropharyngeal lipoma. Reviewed, dictated and finalized at location B.
[2021-10-12 13:13] LABS: Estimated Glomerular Filt Rate > 60
== END ==
PROVIDERS: PCP Family Medicine; Visit Provider Otolaryngology
DX: J39.2 Other diseases of pharynx (principal); R59.0 Localized enlarged lymph nodes
CPT/HCPCS: 70491; Q9967

== ENCOUNTER 2022-09-14 12:14 | Emergency (ER) | payer MEDICARE, OTHER, SELFPAY ==
[2022-09-14] VITALS (19 sets, daily range): BP systolic 147–195; BP diastolic 64–111; PULSE 55–76; RESP 11–31; TEMP 36.1–37.2; O2SAT 97–100
--- NOTE | ~2022-09-14 | CT_ITS ---
EXAMINATION: CT abdomen pelvis w con DATE: 09/14/2022 15:14 INDICATION: Hematuria TECHNIQUE: Computed tomography (CT) of the abdomen and pelvis was performed with 100 cc Omnipaque 350 intravenous contrast. The dose-length product was 725.07 mGy-cm. Automated exposure control and iter ative reconstruction technique were employed. COMPARISON: CT dated 11/25/2020. FINDINGS: There are multiple bilateral pulmonary nodules, largest on the right measuring 1.7 x 1.1 cm in largest on the left measuring 11 x 9 mm, consistent with metastatic disease. Heart size normal. N o significant pleural or pericardial effusion. Status post cholecystectomy with expected prominence o f the bile ducts. The spleen, pancreas, adrenal glands and kidneys are unremarkable. There is atheros clerosis of the aorta without aneurysm. Status post hysterectomy. No lymphadenopathy. No free air or free fluid. There is a left total hip arthroplasty. There is a sclerotic lesion of the right sacroili ac joint. There is fusion at L4-5. No lytic lesions. There is moderate lumbar spondylosis. Colonic di verticulosis without evidence for diverticulitis. IMPRESSION: 1. Multiple bilateral pulmonary nodules, consistent with metastatic disease. Correlate for clinical h istory of malignancy. Reviewed, dictated and finalized at location B. IMPRESSION: 1. Multiple bilateral pulmonary nodules, consistent with metastatic disease. Co rrelate for clinical history of malignancy.
--- NOTE | ~2022-09-14 | XR_ITS ---
XR chest 2V 09/14/2022 15:19 Indication: Shortness of breath Procedure: AP and lateral views of the chest Comparison: Chest dated 11/25/2020 Findings: There are multiple bilateral pulmonary nodules and masses, consistent with metastatic disea se. Largest conglomerate mass at the left apex. Heart size normal. No significant pleural effusion. N o pneumothorax. Impression: 1: Pulmonary metastases, largest mass of the left apex. Correlate for clinical history of malignancy. Reviewed, dictated and finalized at location B. Impression: 1: Pulmonary metastases, largest mass of the left apex. Correlate for clinical history of malignancy.
[2022-09-14 12:33] LABS: Basophils Absolute Auto 0.1 K/mm3 (0.0-0.1); Basophils Percent Auto 0.5 % (0.2-1.2); Eosinophils Percent Auto 0.3 % (0-4.4); Hematocrit 36.1 % (37.0-47.0); Hemoglobin 11.5 g/dL (12.0-15.0); Immature Granulocyte Absolute 0.02 K/mm3 (0.00-0.031); Immature Granulocyte Percent A 0.2 % (0-0.5); Lymphocytes Percent Auto 12.6 % (18.3-44.2); Mean Corpuscular HGB Conc 31.9 g/dl (32-36); Mean Corpuscular Hemoglobin 26.9 pg (26-34); Mean Corpuscular Volume 84.3 fl (80-100); Mean Platelet Volume 9.3 fl (7.4-10.4); Monocytes Absolute Auto 0.7 K/mm3 (0.1-0.6); Monocytes Percent Auto 7.1 % (2.6-8.5); Neutrophils Absolute Auto 8.2 K/mm3 (1.3-6.7); Neutrophils Percent Auto 79.3 % (45.5-73.1); Platelet Count Result 362 k/mm3 (150-375); Red Blood Count 4.28 M/mm3 (4.2-5.4); Red Cell Distribution Width 13.3 % (11.5-14.5); White Blood Count 10.3 K/mm3 (4.5-10.0)
[2022-09-14 12:43] LABS: Alanine Aminotransferase 22 U/L (6-35); Albumin Level 3.9 g/dL (3.5-5.1); Alkaline Phosphatase 80 U/L (38-126); Anion Gap 8 mmol/L (8-16); Aspartate Amino Transferase 31 U/L (14-36); Bilirubin,Total 0.5 mg/dL (0.2-1.3); Blood Urea Nitrogen 14 mg/dL (7-17); Calcium 8.7 mg/dL (8.4-10.2); Carbon Dioxide 27 mmol/L (22-30); Chloride 100 mmol/L (98-107); Estimated CRCL calculation 52 ml/min; Estimated Glomerular Filt Rate > 60; Glucose 123 mg/dL (65-110); Lipase 56 U/L (23-300); Potassium 3.1 mmol/L (3.4-5.0); Sodium 135 mmol/L (137-145)
[2022-09-14 13:17] LABS: Appearance Urine Cloudy (Clear); Bacteria Urine None Seen /hpf; Bilirubin Urine 2+ (Negative); Blood Urine Negative (Negative); Calcium Oxalate Crystals Urine Present /hpf; Color Urine Dark Yellow (Yellow); Glucose Urine UA Negative (Negative); Hyaline Casts Urine Present /lpf; Ketones Urine 1+ mg/dL (Negative); Leukocyte Esterase Ur Negative LEU/UL (Negative); Mucus Urine Present /lpf; Nitrate Urine Negative (Negative); Protein Urine 2+ mg/dL (Negative); RBC Urine 0-2 /hpf (0-2); Specific Grav Ur 1.025 (1.001-1.035); Squamous Epithelial Cell Urine Few /hpf (Few); WBC Urine 0-5 /hpf
[2022-09-14 13:21] LABS: Add Urine Microscopic? YES
--- NOTE | 2022-09-14 14:41 | ECG_ITS ---
Measurements Intervals [place] Rate: 47 P: DE: 0 QRS: 6 QRSD: 86 T: 34 QT: 392 QTc: 350 Interpretive Statements SINUS BRADYCARDIA VENTRICULAR PREMATURE COMPLEX VOLTAGE CRITERIA FOR LVH BASELINE ARTIFACT- I, II, III, AVR, AVL, AVF, V1-V6 BORDERLINE ECG COMPARED TO ECG 01/09/2021 08:51:32 SINUS BRADYCARDIA NOW PRESENT Electronically Signed On 09-14-2022 16:23:26 CDT by Roland Duffy D.O.
--- NOTE | 2022-09-14 14:43 | ED.NAVMDI ---
HPI - Nausea/Vomiting/Diarrhea General Chief complaint: Nausea/Vomiting/Diarrhea Stated complaint: sent by Dr Reardon for HTN and SOB Time Seen by Provider: 09/14/22 14:29 History of Present Illness HPI Narrative: 82-year-old female with a history of afib on AC, chronic vertigo, here due to multiple medical complaints. Patient reports nausea, vomiting, epigastric abdominal discomfort, constipation for the past 4 days. Has been unable to tolerate any p.o. Patient also states that she has been feeling short of breath and has had intermittent difficulty controlling her blood pressures at home. Reports blood pressures as high as 200 systolic at home despite compliance with her antihypertensives. No chest pain or leg swelling. She also reports blood in her urine but denies any dysuria, urgency or frequency. No back pain or fevers. No smoking history but has been exposed to secondhand smoke her entire life. Related Data Home Medications Medication Instructions Recorded Confirmed dronedarone 400 mg tablet (Multaq) 400 mg PO Q12H 08/10/21 09/11/22 rivaroxaban 20 mg tablet (Xarelto) 20 mg PO DAILY 08/10/21 09/11/22 Allergies Allergy/AdvReac Type Severity Reaction Status Date / Time lisinopril AdvReac Mild Cough Verified 09/14/22 12:14 Review of Systems Review of Systems: Gen.: Denies fevers or chills Eyes: Denies eye pain or visual change ENT: Denies congestion Respiratory: Reports shortness of breath CV: Denies chest pain or palpitations GI: Reports abdominal pain, nausea vomiting constipation denies burning, urgency, frequency or hematuria Musculoskeletal: Denies back pain or muscle pain Neuro: Denies numbness, tingling, weakness or focal weakness Skin: Denies rash Except as documented, all other systems reviewed and negative [facility] Past Medical History Medical History Anxiety Asthma Chronic low back pain Dementia Depression Essential hypertension GERD (gastroesophageal reflux disease) HTN (hypertension), benign Hyperlipidemia Obstructive sleep apnea REM sleep behavior disorder Vertigo Surgical History Surgical History H/O bladder repair surgery H/O cataract extraction H/O: hysterectomy History of back surgery History of bilateral knee replacement History of left hip replacement Hx of cholecystectomy Family History Family History Mother Patient's mother is in good health, Onset Age: 92 Family history of arthritis Hypertension Cerebrovascular accident Father Acute myocardial infarction, Onset Age: 68 Family history of congenital heart disease Hypertension Family history of cardiovascular disease Patient's father is Social History Social History Social History: 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 She lives home with her who is a durable power saw cleaner for healthcare. The patient has 2 biological children and stepchildren as well. The patient is a full code. Lifelong nonsmoker she does not use any alcohol marijuana or illicit drugs. Smoking status: Never smoker Second hand tobacco smoke exposure: No Alcohol intake: never Substance use: never Substance use type: does not use Living arrangements: with family Occupation/Education: retired Gender identity (if verbalized by the patient): Female Sexual Orientation (if Verbalized by the Patient): Straight or Heterosexual Spiritual care concerns: No Exam Narrative: APPEARANCE: Well appearing, no pain in distress, well-nourished. Head: Normocephalic and atraumatic. EYES: PERRLA/EOMI, conjunctivae clear NOSE: No nasal drainage EARS: External ear normal in appearance THROAT: Oropharynx is clear. Mucous membranes are moist. NECK: Supple. No adenopathy, no masses. RE
[2022-09-14] MEDS: SODIUM CHLORIDE 0.9% IV 1,000 ML 999 ML IV CONT (15:55)
[2022-09-14] MEDS: FAMOTIDINE 20 MG/2 ML VIAL IV PUSH (15:56)
[2022-09-14] MEDS: ONDANSETRON INJ 4 MG/2 ML VIAL IV PUSH (15:56)
[2022-09-14] MEDS: KCL 20 MEQ/SW 100 ML 100 ML 50 MEQ IVPB (16:02)
[2022-09-14 16:29] LABS: Magnesium 2.4 mg/dL (1.6-2.3)
== END 2022-09-14 18:26 | disposition home or self-care (01) ==
PROVIDERS: Emergency Medicine; Emergency Provider Physician Assistant; PCP Family Medicine
DX: I10 Essential (primary) hypertension (principal); R91.1 Solitary pulmonary nodule; I48.91 Unspecified atrial fibrillation; F03.90 Unspecified dementia, unspecified severity, without behavioral disturbance, psychotic disturbance, mood disturbance, and anxiety; E78.5 Hyperlipidemia, unspecified; J45.909 Unspecified asthma, uncomplicated; K21.9 Gastro-esophageal reflux disease without esophagitis; G47.33 Obstructive sleep apnea (adult) (pediatric); Z96.642 Presence of left artificial hip joint; Z96.653 Presence of artificial knee joint, bilateral; Z90.710 Acquired absence of both cervix and uterus; Z90.49 Acquired absence of other specified parts of digestive tract; Z79.01 Long term (current) use of anticoagulants; I49.3 Ventricular premature depolarization
CPT/HCPCS: 36415; 71046; 74177; 80053; 81001; 83690; 83735; 85025; 93005; 96365; 96375; 99284; J2405; J3480; J7030; Q9967

== ENCOUNTER 2022-09-25 13:17 | Outpatient (CLI) | payer MEDICARE, OTHER, SELFPAY ==
--- NOTE | ~2022-09-25 | CT_ITS ---
EXAMINATION:CT diagnostic chest w con DATE: 09/25/2022 13:51 INDICATION: Lung mass. Other specified abnormal finding in lung field. TECHNIQUE: Computed tomography (CT) of the chest was performed with 75 mL Omnipaque 350 intravenous c ontrast. Automated exposure control and iterative reconstruction technique were employed. The dose-le ngth product (DLP) was 289.43 mGy-cm. COMPARISON: CT abdomen and pelvis 09/14/2022 FINDINGS: There are greater than 20 nodules and masses scattered in the lungs with air bronchograms. The largest mass measures 5.7 x 4.6 cm in left upper lobe. No pleural effusion. Cardiomegaly is noted . No pericardial effusion. There are changes of cholecystectomy. There is moderate thoracic spondylos is. IMPRESSION: 1. Stable multifocal lung disease. The differential diagnosis includes metastatic disease, pneumonia, vasculitis, and organizing pneumonia. Reviewed, dictated and finalized at location L. IMPRESSION: 1. Stable multifocal lung disease. The differential diagnosis includes metastat ic disease, pneumonia, vasculitis, and organizing pneumonia.
== END 2022-09-25 13:18 | disposition home or self-care (01) ==
LOC: ANHIMG 13:18
PROVIDERS: PCP Family Medicine; Visit Provider Family Medicine
DX: R91.8 Other nonspecific abnormal finding of lung field (principal)
CPT/HCPCS: 71260; Q9967

== ENCOUNTER 2022-10-03 08:54 | Outpatient (CLI) | payer MEDICARE, OTHER, SELFPAY ==
--- NOTE | 2022-09-28 07:51 | PC.NURSE ---
Pre Radiology instructions Report to the outpatient [facility] on date _10/03/22____ at time __0900 for procedure Time: _1100___ YOU MAY BE MONITORED AT HOSPITAL FOR UP TO 4 HOURS AFTER YOUR PROCEDURE. A visitor will be allowed to accompany the patient into the hospital. You and your visitor will be asked to self-screen and do not enter if you have any COVID symptoms. A mask is OPTIONAL within the hospital. Patients are to have no food or drink 6 hours prior to procedure time Driving will be restricted after the procedure, you must have a person to drive you home. Labs will be drawn in preop area and once reviewed, you will be taken to radiology area for procedure. When the procedure is completed, you will be taken to outpatient where you will be monitored for several hours. You may have one visitor in this area. Other than holding anti-coagulants, patient may take other medication(s) as scheduled. Prior to your appointment date patients are instructed to hold anti-coagulants after discussing with ordering provider to stop. If unable to discontinue anti-coagulants please notify radiologist. ? No aspirin or warfarin (Coumadin) for 7 days prior to the procedure. ? No clopidogrel (Plavix), ticagrelor (Brilinta), prasugrel (Effient) or dabigatran (Pradaxa) for 5 days prior to the procedure. ? No rivaroxaban (Xarelto), apixaban (Eliquis), dipyridamole (Aggrenox or Persantine) or cilostazol (Pletal) for 2 days prior to the procedure. Medications to discontinue per physician: __XARELTO Date to take last dose: ____09/30/22 Please leave all valuables, including medications, at home the day of procedure. The hospital will not accept responsibility for valuables. Wear comfortable, loose fitting clothing.? Follow any additional instructions given to you from ordering provider. Telephone instructions given to __PATIENT and asked if any additional questions and then verbalized understanding. Patient advised to call scheduling provider office or registration scheduling [phone] if any additional questions.
[2022-09-28 07:57] VITALS: BMI 32.5
[2022-10-03] VITALS (10 sets, daily range): BP systolic 113–198; BP diastolic 51–67; PULSE 57–65; RESP 16–18; TEMP 36.1–36.8; O2SAT 99–100; BMI 31.6
--- NOTE | ~2022-10-03 | XR_ITS ---
EXAMINATION: XR chest 1V DATE: 10/03/2022 11:31 INDICATION: Left lung mass status post percutaneous biopsy. TECHNIQUE: A single frontal view of the chest was obtained. COMPARISON: Chest 2 views 09/14/2022 FINDINGS: There are patchy airspace opacities in all lung zones bilaterally. No pleural effusion or p neumothorax. The heart size is normal. Surgical clips in the right upper quadrant are likely from cho lecystectomy. There are sclerotic lesions in the proximal humeri, likely osteonecrosis. IMPRESSION: 1. Multifocal lung disease. The differential diagnosis includes metastatic disease, pneumonia, vascul itis, and organizing pneumonia. Reviewed, dictated and finalized at location A. IMPRESSION: 1. Multifocal lung disease. The differential diagnosis includes metastatic dise ase, pneumonia, vasculitis, and organizing pneumonia.
--- NOTE | ~2022-10-03 | CT_ITS ---
EXAMINATION: CT biopsy lung w/imaging DATE: 10/03/2022 11:29 INDICATION: Multifocal lung disease. TECHNIQUE: The procedure including the risks, benefits, and alternatives and possibility of chest tub e placement were discussed with the patient. Risks discussed included infection, hemorrhage, approxim ately 1/3 risk of pneumothorax, approximately 1/10 risk of pneumothorax severe enough to warrant ches t tube placement, and rarely . The patient understood the risks and agreed to proceed. The patie nt was placed supine. The skin overlying the left lung upper lobe was prepped and draped in sterile fashion. Anesthetic was administered with 1% lidocaine subcutaneously. A 19 gauge outer needle was advanced under CT guidance to the lesion of interest. A 20 gauge core biopsy needle was then used to obtain 3 core biopsy specimens. The needle was removed and the entry site was cleaned and dressed. Th e mA was adjusted according to patient size. Iterative reconstruction technique was employed. The dos e-length product was 312.97 mGy-cm. There were no immediate complications. FINDINGS: CT images demonstrate the outer needle tip adjacent to a 5.5 x 4.3 cm mass with air broncho grams in left upper lobe. There are scattered nodules in all lobes, many with air bronchograms. The l sonido findings are unchanged from 09/25/2022. No pleural effusion. IMPRESSION: 1. CT-guided core needle biopsy of a mass in left lung upper lobe. Reviewed, dictated and finalized at location A.
--- NOTE | ~2022-10-03 | XR_ITS ---
EXAMINATION: XR chest 1V portable DATE: 10/03/2022 14:37 INDICATION: Left lung mass status post percutaneous biopsy. TECHNIQUE: A single frontal view of the chest was obtained. COMPARISON: Chest single view at 12:42 PM FINDINGS: There are patchy airspace opacities in all lung zones bilaterally. No pleural effusion or p neumothorax. The heart size is normal. IMPRESSION: 1. Multifocal lung disease. The differential diagnosis includes metastatic disease, pneumonia, vascul itis, and organizing pneumonia. Reviewed, dictated and finalized at location A. IMPRESSION: 1. Multifocal lung disease. The differential diagnosis includes metastatic dise ase, pneumonia, vasculitis, and organizing pneumonia.
--- NOTE | ~2022-10-03 | XR_ITS ---
EXAMINATION: XR chest 1V portable DATE: 10/03/2022 12:52 INDICATION: Left lung mass status post percutaneous biopsy. TECHNIQUE: A single frontal view of the chest was obtained. COMPARISON: Chest single view at 11:29 AM FINDINGS: There are patchy airspace opacities in all lung zones bilaterally. No pleural effusion or p neumothorax. The heart size is normal. IMPRESSION: 1. Multifocal lung disease. The differential diagnosis includes metastatic disease, pneumonia, vascul itis, and organizing pneumonia. Reviewed, dictated and finalized at location A. IMPRESSION: 1. Multifocal lung disease. The differential diagnosis includes metastatic dise ase, pneumonia, vasculitis, and organizing pneumonia.
[2022-10-03 10:00] LABS: Prothrombin Time 13.4 Seconds (11.1-14.7)
--- NOTE | 2022-10-03 14:57 | SUR.PHASEII ---
[address] thao, and chest xray looks good, pt doing well, okay for discharge
== END 2022-10-03 15:10 | disposition home or self-care (01) ==
PROVIDERS: PCP Family Medicine; Visit Provider Radiology Diagnostic Radiology
PROC: BB24ZZZ Computerized Tomography (CT Scan) of Bilateral Lungs (ICD-10-PCS; CPT 32408; principal; 2022-10-03 11:00)
DX: R91.8 Other nonspecific abnormal finding of lung field (principal)
CPT/HCPCS: 32408; 36415; 71045; 85610; 88305; 88313; 88342

== ENCOUNTER 2022-10-23 09:42 | Outpatient (CLI) | payer MEDICARE, OTHER, SELFPAY ==
--- NOTE | ~2022-10-23 | CT_ITS ---
Clinical Indication: Pneumonia CT Scan of the Chest with Contrast: Technique: Contiguous sections were acquired throughout the chest after intravenous administration of 75 cc of Omnipaque 350. Dose reduction technique was used on this scan by utilizing automated exposu re control and iterative reconstruction technique. The dose-length product (DLP) was 268.99 mGy-cm. COMPARISON: 10/03/2022 Findings: There is no evidence of any significant mediastinal, hilar or axillary lymphadenopathy. There is no f illing defect in the pulmonary arterial tree to suggest pulmonary embolus. There is no evidence of ao rtic dissection or aneurysm. There is no evidence of pleural or pericardial effusion. There are multiple irregular, somewhat nodular areas of consolidation scattered throughout both lungs , with relative upper lobe predominance. There is a dominant area of more extensive consolidation in the left upper lobe, which is similar to prior exam. Distribution of lesions are similar to prior exa m, though many of the smaller lesions are less confluent and/or minimally decreased in size from prio r exam. Many of the smaller lesions are now extensively groundglass in attenuation. Images through the upper abdomen reveal cholecystectomy clips. Impression: Dominant area of consolidation the left upper lobe is similar to prior exam. Multiple additional more focal irregular areas of airspace disease scattered in the lungs are similar in distribution to prio r exam, though with decreased confluence and/or minimally decreased size of most of the smaller lesio ns as compared to prior exam, consistent with slowly resolving infectious/inflammatory process. Reviewed, dictated and finalized at location M. Impression: Dominant area of consolidation the left upper lobe is similar to prior exam. Mu ltiple additional more focal irregular areas of airspace disease scattered in t he lungs are similar in distribution to prior exam, though with decreased confl uence and/or minimally decreased size of most of the smaller lesions as compare d to prior exam, consistent with slowly resolving infectious/inflammatory proce ss.
[2022-10-23 10:10] LABS: Estimated Glomerular Filt Rate 60
== END 2022-10-23 09:43 | disposition home or self-care (01) ==
PROVIDERS: PCP Family Medicine; Visit Provider Family Medicine
DX: J18.9 Pneumonia, unspecified organism (principal)
CPT/HCPCS: 71260; Q9967

== ENCOUNTER 2022-11-29 09:09 | Outpatient (CLI) | payer MEDICARE, OTHER, SELFPAY ==
--- NOTE | ~2022-11-29 | CT_ITS ---
Clinical Indication: Pneumonia CT Scan of the Chest with Contrast: Technique: Contiguous sections were acquired throughout the chest after intravenous administration of 75 cc of Omnipaque 350. Dose reduction technique was used on this scan by utilizing automated exposu re control and iterative reconstruction technique. The dose-length product (DLP) was 276.62 mGy-cm. COMPARISON: 10/23/2022 Findings: There is no evidence of any significant mediastinal, hilar or axillary lymphadenopathy. There is no f illing defect in the pulmonary arterial tree to suggest pulmonary embolus. There is no evidence of ao rtic dissection or aneurysm. There is no evidence of pleural or pericardial effusion. Dominant left upper lobe consolidation is mildly improved in terms of extent from prior exam, with ruffin rrounding groundglass attenuation. Multiple additional smaller focal areas of airspace consolidation and ground glass opacity seen on prior exam have now evolved into more subtle groundglass pulmonary o pacities. Images through the upper abdomen reveal cholecystectomy clips. Impression: Dominant area of left upper lobe consolidation is mildly improved from prior exam. Multiple additiona l smaller, scattered focal airspace lesions have evolved into more subtle groundglass density as comp ared to prior exam, compatible with continued slow/mild improvement in infectious/inflammatory proces s. Reviewed, dictated and finalized at location M. Impression: Dominant area of left upper lobe consolidation is mildly improved from prior ex am. Multiple additional smaller, scattered focal airspace lesions have evolved into more subtle groundglass density as compared to prior exam, compatible with continued slow/mild improvement in infectious/inflammatory process.
[2022-11-29 09:47] LABS: Estimated Glomerular Filt Rate > 60
== END 2022-11-29 09:10 | disposition home or self-care (01) ==
PROVIDERS: PCP Family Medicine; Visit Provider Family Medicine
DX: J18.9 Pneumonia, unspecified organism (principal)
CPT/HCPCS: 71260; Q9967

== ENCOUNTER 2023-03-06 08:52 | Outpatient (CLI) | payer MEDICARE, OTHER, SELFPAY ==
--- NOTE | ~2023-03-06 | CT_ITS ---
Clinical Indication: Pneumonia CT Scan of the Chest with Contrast: Technique: Contiguous sections were acquired throughout the chest after intravenous administration of 75 cc of Omnipaque 350. Dose reduction technique was used on this scan by utilizing automated exposu re control and iterative reconstruction technique. The dose-length product (DLP) was 329.96 mGy-cm. COMPARISON: 11/29/2022 Findings: There is no evidence of any significant mediastinal, hilar or axillary lymphadenopathy. There is no f illing defect in the pulmonary arterial tree to suggest pulmonary embolus. There is no evidence of ao rtic dissection or aneurysm. There is no evidence of pleural or pericardial effusion. Irregular airspace opacity in the left upper lobe is again mildly decreased from prior exam. No other pulmonary abnormality clearly evident. Additional groundglass lesions seen on prior exam are essenti ally completely resolved. Images through the upper abdomen reveal cholecystectomy clips. Impression: Continued interval improvement in dominant left upper lobe airspace disease, consistent with improvin g pneumonia and/or residual postinflammatory scarring. Additional groundglass lesions seen on prior exam are essentially completely resolved. Reviewed, dictated and finalized at location . ING SUPERVISOR Impression: Continued interval improvement in dominant left upper lobe airspace disease, co nsistent with improving pneumonia and/or residual postinflammatory scarring. Additional groundglass lesions seen on prior exam are essentially completely re solved.
[2023-03-06 09:27] LABS: Estimated Glomerular Filt Rate 60
== END 2023-03-06 08:53 | disposition home or self-care (01) ==
PROVIDERS: PCP Family Medicine; Visit Provider Family Medicine
DX: J18.9 Pneumonia, unspecified organism (principal); R91.8 Other nonspecific abnormal finding of lung field
CPT/HCPCS: 71260; Q9967

== ENCOUNTER 2023-04-15 08:53 | Outpatient (CLI) | payer MEDICARE, OTHER, SELFPAY ==
--- NOTE | ~2023-04-15 | NM_ITS ---
EXAMINATION: NM sena stress w perfusion DATE: 04/15/2023 11:23 INDICATION: Chest pain TECHNIQUE: Rest images were obtained following intravenous administration of 10.69 mCi Tc99m tetrofos min (Myoview). The patient was infused intravenously with Lexiscan (Regadenoson). Then, 34.5 mCi Tc99 m tetrofosmin (Myoview) was administered intravenously, and stress images were obtained. Data was rec onstructed into short axis and horizontal and vertical long axis SPECT images. Gated SPECT images wer e also obtained. COMPARISON: None. FINDINGS: There is no definite reversible or fixed perfusion abnormality to suggest ischemia or infar ction. There is normal left ventricular chamber size, wall motion and ejection fraction. Left ventr icular ejection fraction measures 69%. IMPRESSION: 1. Normal myocardial perfusion at rest and during stress. 2. Left ventricular ejection fraction measuring 69%. Reviewed, dictated and finalized at location A. SETTER
--- NOTE | 2023-04-15 09:17 | EST_ITS ---
Patient Info Name: Isatu Murillo Age: 82 years : 1940 Gender: Female Ht: 64 in Wt: 190 lbs BSA: 2.01 m2 HR: 59 bpm BP: 158 / 78 mmHg Heart Rhythm: Sinus Rhythm Exam Date: 04/15/2023 9:58 AM Exam Location: Echo Lab Patient Status: Outpatient Admit Date: 04/15/2023 Staff Ordering Physician: Roland Duffy DO Attending Provider: Roland Duffy DO Exercise Technologist: Betty Hernandez CT Exercise Physician: Roland Duffy DO Exam Type: CA stress sena w NM Study Info Indications R07.9 - Chest pain, unspecified A regadenoson stress test was performed. Summary 1. 1. Negative lexiscan stress test for ischemic ST changes by ECG criteria. 2. 2. Stable hemodynamics throughout the test. 3. 3. Nuclear scan to follow and will be reported separately. Please correlate with it. 4. 4. Patient informed of the above results. Protocol: Lexiscan Stress ECG Details Stage: REST Duration (min): 3 min : 6 sec HR (bpm): 58 SBP (mmHg): 158 DBP (mmHg): 78 Stage: REST Duration (min): 16 min : 1 sec HR (bpm): 58 SBP (mmHg): 158 DBP (mmHg): 78 Stage: STAGE 1 Duration (min): 1 min : 0 sec HR (bpm): 78 SBP (mmHg): 163 DBP (mmHg): 49 Stage: RECOVERY Duration (min): 1 min : 0 sec HR (bpm): 88 SBP (mmHg): 163 DBP (mmHg): 49 Stage: RECOVERY Duration (min): 2 min : 0 sec HR (bpm): 91 SBP (mmHg): 163 DBP (mmHg): 49 Stage: RECOVERY Duration (min): 3 min : 0 sec HR (bpm): 77 SBP (mmHg): 145 DBP (mmHg): 53 Stage: RECOVERY Duration (min): 3 min : 46 sec HR (bpm): 79 SBP (mmHg): 145 DBP (mmHg): 53 Rest HR: 58 bpm Peak HR: 91 bpm Rest Sys BP: 158 mmHg Peak Sys BP: 163 mmHg Max Pred HR: 140 bpm % Max Pred HR: 65 % Target HR: 119 bpm Max RPP: 14,833 bpm*mmHg Termination Reason: Completed protocol Cardiac Symptoms: Shortness of breath Total Time: 1 min : 0 sec Rest Medina BP: 78 mmHg Peak [place]ina BP: 49 mmHg Total Dose: 0.4 mg Resting ECG Sinus bradycardia. Stress ECG No ST changes. Arrhythmias None. Report Signatures
== END 2023-04-15 08:54 | disposition home or self-care (01) ==
LOC: ANHCARD 09:00
PROVIDERS: PCP Family Medicine; Visit Provider Internal Medicine Cardiovascular Disease
DX: R07.9 Chest pain, unspecified (principal)
CPT/HCPCS: 78452; 93017; A9502; J2785

== ENCOUNTER 2023-06-21 14:19 | Outpatient (CLI) | payer MEDICARE, OTHER, SELFPAY ==
--- NOTE | ~2023-06-21 | XR_ITS ---
EXAMINATION: XR sacrum coccyx min 2V DATE: 06/21/2023 14:49 INDICATION: Fall. Buttock pain. TECHNIQUE: 3 views of the sacrum and coccyx were obtained. COMPARISON: None. 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 No fracture. There is mi ld right hip osteoarthritis. Osteitis pubis is noted. There is moderate lumbar spondylosis. There are changes of anterior and posterior fusion procedures at L4-L5. 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 IMPRESSION: 1. No fracture. 2. Polyarticular osteoarthritis. 3. Anterior and posterior fusion procedures at L4-L5. 4. Total left hip arthroplasty in near-anatomic alignment. Reviewed, dictated and finalized at location E. COMMISSIONER
--- NOTE | ~2023-06-21 | XR_ITS ---
EXAMINATION: XR hip BI 2V w AP pelvis DATE: 06/21/2023 14:49 INDICATION: Buttock pain. Fall. TECHNIQUE: An anteroposterior view of the pelvis and 2 views of each hip were obtained. COMPARISON: Pelvis radiograph 01/09/2021 FINDINGS: There is a total left hip arthroplasty in near-anatomic alignment. No periprosthetic lucenc y to suggest loosening or infection. No fracture. There is mild right hip osteoarthritis. There are c hanges of anterior and posterior fusion procedures at L4-L5. There is severe lumbar spondylosis. Osse ous pubis is noted. IMPRESSION: 1. Total left hip arthroplasty in near-anatomic alignment. 2. Mild right hip osteoarthritis. Reviewed, dictated and finalized at location E. RAM CHECKER
== END 2023-06-21 14:20 | disposition home or self-care (01) ==
LOC: ANHIMG 14:24
PROVIDERS: PCP Family Medicine; Visit Provider Physician Assistant
DX: M53.3 Sacrococcygeal disorders, not elsewhere classified (principal); M25.551 Pain in right hip; M25.552 Pain in left hip; Z98.1 Arthrodesis status; M16.11 Unilateral primary osteoarthritis, right hip
CPT/HCPCS: 72220; 73521

== ENCOUNTER 2023-09-24 12:57 | Outpatient (CLI) | payer MEDICARE, OTHER, SELFPAY | END 2023-09-24 12:58 | disposition home or self-care (01) | PROVIDERS: PCP Family Medicine; Visit Provider Family Medicine | DX: H90.3 Sensorineural hearing loss, bilateral (principal); H93.13 Tinnitus, bilateral | CPT/HCPCS: 92557; 92567 ==

== ENCOUNTER 2023-10-28 15:53 | Outpatient (CLI) | payer MEDICARE, OTHER, SELFPAY ==
--- NOTE | ~2023-10-28 | XR_ITS ---
EXAM: XR abdomen/kub 1V DATE: 10/28/2023 16:13 HISTORY: Unspecified abdominal pain . COMPARISON: CT abdomen pelvis 09/14/2022. FINDINGS: Multiple pulmonary nodules described in the prior CT are not well seen radiographically. N ormal bowel gas pattern. No organomegaly. Pelvic phleboliths. Partially visualized, uncomplicated anil earing left hip arthroplasty hardware and lumbar fusion hardware. Cholecystectomy clips. Multilevel l umbar degenerative disc disease. Mild right hip osteoarthritis. Degenerative change at the pubic symp hysis and bilateral SI joints. IMPRESSION: No radiographic evidence of obstruction or ileus. Reviewed, dictated and finalized at location K.
== END 2023-10-28 15:54 ==
PROVIDERS: PCP Family Medicine; Visit Provider Family Medicine
DX: R10.9 Unspecified abdominal pain (principal)
CPT/HCPCS: 74018

== ENCOUNTER 2023-12-17 10:27 | Outpatient (CLI) | payer MEDICARE, OTHER, SELFPAY ==
--- NOTE | ~2023-12-17 | CT_ITS ---
EXAMINATION: CT abdomen pelvis w con DATE: 12/17/2023 11:05 INDICATION: Left lower quadrant abdominal pain and diarrhea TECHNIQUE: Computed tomography (CT) of the abdomen and pelvis was performed with 100 mL Omnipaque-350 intravenous contrast. Automated exposure control and iterative reconstruction technique were employe d. The dose-length product was 921.07 mGy-cm. COMPARISON: 09/14/2022 FINDINGS: Lung bases are clear. Heart size is normal. No pericardial or pleural effusion. Cholecystectomy clips the gallbladder fossa. Liver, spleen, pancreas, bilateral adrenal glands and kidneys are normal. The re is moderate colonic diverticulosis with a sigmoid predominance. There is no adjacent inflammatory change to suggest diverticulitis. Small bowel and appendix are normal. The partially decompressed bl adder is unremarkable. The uterus is not identified and has likely been surgically resected. No free intraperitoneal gas or fluid. No pathologically enlarged abdominal or pelvic lymphadenopathy. Streak artifact in the pelvis from a left total hip arthroplasty. L4 laminectomy. Severe upper lumbar spondy losis and combined instrumented anterior and posterior L4-L5 spinal fusion with interbody bone graft cage and bilateral vertical ailene and pedicle screw fixation. IMPRESSION: 1. Diverticulosis. No acute intra-abdominal/pelvic process. Reviewed, dictated and finalized at location A.
[2023-12-17 10:49] LABS: Estimated Glomerular Filt Rate 53
== END 2023-12-17 10:28 ==
LOC: MICIMG 10:28
PROVIDERS: PCP Family Medicine; Visit Provider Physician Assistant Medical
DX: R10.32 Left lower quadrant pain (principal); R19.7 Diarrhea, unspecified; K57.30 Diverticulosis of large intestine without perforation or abscess without bleeding
CPT/HCPCS: 74177; Q9967

== ENCOUNTER 2024-01-24 13:13 | Outpatient (CLI) | payer MEDICARE, OTHER, SELFPAY ==
--- NOTE | ~2024-01-24 | MM_ITS ---
EXAMINATION: MM screening tatiana BI w zay HISTORY: Screening TECHNIQUE: Craniocaudal and mediolateral oblique 3-D tomosynthesis images were obtained and synthetic 2-D images were generated. CAD analysis was submitted and interpreted. COMPARISON: Comparison to multiple prior studies sequentially, with oldest reviewed study dated 05/2019. BREAST PARENCHYMAL COMPOSITION: Not dense: There are scattered areas of fibroglandular density. FINDINGS: There is no evidence of suspicious mass, calcification, or architectural distortion to sugg est malignancy in either breast. There has been no suspicious interval change. IMPRESSION: 1. No mammographic evidence of malignancy. 2. Recommend routine screening mammography in one year. BI-RADS Category 1: Negative Reviewed, dictated and finalized at location B.
== END 2024-01-24 13:14 | disposition home or self-care (01) ==
PROVIDERS: PCP Family Medicine; Visit Provider Family Medicine
DX: Z12.31 Encounter for screening mammogram for malignant neoplasm of breast (principal)
CPT/HCPCS: 77063; 77067

== ENCOUNTER 2024-02-05 10:43 | Outpatient (CLI) | payer MEDICARE, OTHER, SELFPAY ==
--- NOTE | ~2024-02-05 | DEXA_ITS ---
Bone Density Report Name: RONY VALDES Age: 83 Sex: Female Ethnicity: White Date of : 1940 Indication: postmenopausal; screening for osteoporosis; height loss; prior fracture; asthma or emphysema; hysterectomy; Referring Provider: MICHI OBANDO Study: Bone densitometry was performed. Exam Date: February 05, 2024 Accession number: [id number] Bone Density: Region BMD T-score Z-score Classification AP Spine(L1, L2) 0.946 -0.3 2.3 Normal Femoral Neck (Right) 0.728 -1.1 1.3 Osteopenia Total Hip (Right) 0.826 -1.0 1.2 Normal World Health Organization criteria for BMD impression classify patients as: Normal (T-score at or above -1.0), Osteopenia (T-score between -1.0 and -2.5), or Osteoporosis (T-score at or below -2.5). 10-year Fracture Risk: FRAX not reported because: Prior hip or vertebral fracture Previous Exams: Region Exam Age BMD T-score BMD Change BMD Change Date g/cm2 vs Baseline vs Previous AP Spine (L1-L2) 02/05/2024 83 0.946 -0.3 0.020 (2.1%)# 0.020 (2.1%)# 12/04/2019 79 0.926 -0.5 Total Hip(Right) 02/05/2024 83 0.826 -1.0 -0.084 (-9.2%) -0.084 (-9.2%) 12/04/2019 79 0.909 -0.3 *Denotes significance at 95% confidence level, LSC for AP Spine = 0.022 g/cm2, LSC for Total Hip = 0.027 g/cm2 # Denotes dissimilar scan types or analysis methods Clinical Information Provided by Patient: Have had a previous hip or vertebral fracture Has had a low trauma fracture Has the following medical conditions: Asthma or Emphysema, Hysterectomy Patient maximum height was 64.0 No regular weight bearing exercise Does not regularly consume dairy products Drinks caffeinated beverages Onset of menses at age 14 Number of children 2 Impression: The patient has low bone mass, based on the Right Femoral Neck T-score. The patient has risk factors, including: previous fracture. No significant bone loss was observed. Discussion: INCREASED RISK OF FRACTURE DUE TO HISTORY OF FRACTURE. The patient's previous fracture puts the patient at high risk of a future fracture. In untreated patients, the risk of osteoporotic fracture increases approximately two-fold for each 1.0 SD decrease in T-score. Low bone density is not the only risk factor for fracture; also consider factors such as patient's age, frailty or poor health, risk of falling, risk of injury, previous osteoporotic fracture, family history of osteoporosis, cigarette smoking, low body weight, etc. Not everyone with a low trauma fracture has osteoporosis; osteomalacia and
== END 2024-02-05 10:44 | disposition home or self-care (01) ==
LOC: ANHIMG 10:44
PROVIDERS: PCP Family Medicine; Visit Provider Family Medicine
DX: M85.89 Other specified disorders of bone density and structure, multiple sites (principal); Z78.0 Asymptomatic menopausal state
CPT/HCPCS: 77080

== ENCOUNTER 2024-06-02 07:31 | Outpatient (CLI) | payer MEDICARE, OTHER, SELFPAY ==
--- NOTE | ~2024-06-02 | MR_ITS ---
EXAMINATION: MR brain/brain stem wo con DATE: 06/02/2024 08:35 INDICATION: Unspecified dementia TECHNIQUE: Magnetic resonance imaging (MRI) of the brain and brainstem was performed without intraven ous contrast. Sequences included sagittal and axial T1-weighted SE, axial diffusion-weighted FS SE, a xial 3D SWAN, axial T2-weighted FLAIR, and axial T2-weighted FSE. Postcontrast axial and coronal T1-w eighted SE was obtained. Apparent diffusion coefficient (ADC) maps were created. COMPARISON: None. FINDINGS: There are no areas of restricted diffusion to suggest acute infarction. Small focus of susceptibility artifact in the right parietal lobe white matter consistent with chronic blood products related to c hronic microhemorrhage, typically related to hypertension. No acute intracranial hemorrhage or other abnormal extra-axial fluid collections. 6 x 2 mm T1 hyperintense lipoma along the falx. No other abno rmal intracranial mass lesion. There are scattered areas of nonspecific increased T2-weighted signal intensity in the cerebral white matter, predominantly involving the deep and periventricular white ma tter. There are no intraparenchymal signal abnormalities seen on the other pulse sequences. The ventr icles are symmetric and normal in size. There are no abnormal extra-axial fluid collections. Flow voi ds are seen in the cerebral arteries on the T2-weighted sequences consistent with their expected valencia ncy. Changes of bilateral intraocular lens replacement. Mild mucosal thickening the bilateral ethmoid sinuses. Small left mastoid effusion. IMPRESSION: 1. No acute intracranial process. 2. Moderate scattered periventricular predominant nonspecific white matter T2 hyperintensity likely s equela chronic small vessel ischemic disease. 3. Single tiny focus of susceptibility artifact in the right parietal lobe consistent with chronic mi crohemorrhage typically related to hypertension. Reviewed, dictated and finalized at location A. NET DEVELOPER IMPRESSION: 1. No acute intracranial process. 2. Moderate scattered periventricular predominant nonspecific white matter T2 h yperintensity likely sequela chronic small vessel ischemic disease. 3. Single tiny focus of susceptibility artifact in the right parietal lobe cons istent with chronic microhemorrhage typically related to hypertension.
== END 2024-06-02 07:32 | disposition home or self-care (01) ==
PROVIDERS: PCP Family Medicine; Visit Provider Physician Assistant
DX: F03.90 Unspecified dementia, unspecified severity, without behavioral disturbance, psychotic disturbance, mood disturbance, and anxiety (principal); R90.82 White matter disease, unspecified
CPT/HCPCS: 70551

== ENCOUNTER 2024-07-02 00:33 | Day surgery (SDC) | payer MEDICARE, OTHER, SELFPAY ==
[2024-06-24 13:26] VITALS: BMI 32.4
--- NOTE | 2024-06-24 13:54 | PC.NURSE ---
Spoke with patient regarding medication Xarelto. Patient verbalizes understanding that the last dose is to be taken on 06/28/2024 and the Endoscopist will instruct them when to restart after the procedure.
--- OUTSIDE RECORDS SUMMARY | 2024-07-02 00:36 | XMS_ITS ---
Author Organization [facility] Address [address] [place] [address] Care Team Providers Care Nurses Educator Name Role Phone Geoffrey Reardon MD Primary Care Provider Unavaila Dilcia Kyle Unavailable [phone] Teresa Torres Unavailable Unavailable REASON FOR VISIT [facility] follow-up Encounters Encounter Location Date Provider Diagnosis [facility] [address] [place] [address] 03/10/2024 Dilcia Castañeda Plan Of Treatment No Information Progress Notes * Isatu VALDESDOB:[birth year] (84 yo F)Acc No.[id number]:03/10/2024 Progress Notes Patient: Isatu DIAZ Provider: Elenita Castañeda MD :1940 A ge:83 Y S ex:Female Date:03/10/2024 Address:[address] [facility] Pcp:Geoffrey Reardon MD Subjective: * Chief Complaints: * 1 . [facility]C follow-up. * Medical History: Objective: * Vitals: Assessment: Plan: * Treatment: * Billing Information: * Visit Code: * Procedure Codes: * Electronic signature of Pippa Castañeda MD on 07/02/2024 at 12:36 AM DIRECTOR STARS Sign off status: Pending * Provider: Elenita Castañeda MD Date: 05/10/2023 Generated for Nura goyal/Wicho/Hosseinitting on: 0 07/02/2024 12:36 AM DIRECTOR STARS
--- OUTSIDE RECORDS SUMMARY | 2024-07-02 00:36 | XMS_ITS | Encounter Summary ---
Author Organization [facility] Address [address] [place] [address] Care Team Providers Care Inspector Production Plastic Parts Name Role Phone Geoffrey Reardon MD Primary Care Provider [phone] Bubba Villavicencio MD Unavailable [phone] Encounter Details Date Type Department Care Team (Late st Contact Info) Description 06/27/2020 [facility] [address] [address] Alfredo Brothers MA Social History Tobacco Use Types Packs/Day Years Used Date Smoking Tobacco: Never Smokeless Tobacco: Never Alcohol Use Standard Drinks/Week Comments No 0 (1 standard drink = 0.6 oz pur e alcohol) Comments Unknown Sex and Gender Information Value Date Recorded Sex Assigned at Not on file Legal Sex Female 10:04 PM CDT Gender Identity Not on file Sexual Orientation Not on file Occupation Industry Job Start Date Job End Date Not on file Not on file Not on file Not on file documented as of this encounter Plan of Treatment Not on file documented as of this encounter Procedures Procedure Name Priority Date/Time Associated Diagnosis Comments CBC (OUTSIDE LAB) Routine 02/02/2021 COMPREHENSIVE METABOLIC PANEL Routine 02/02/2021 CBC (OUTSIDE LAB) Routine 06/24/2020 COMPREHENSIVE METABOLIC PANEL Routine 06/24/2020 LIPID PANEL Routine 06/24/2020 THYROID STIM HORMONE TSH Routine 06/24/2020 documented in this encounter Results * COMPREHENSIVE METABOLIC PANEL (02/02/2021) SODIUM S/P/B 140 POTASSIUM S/P/B 3.6 CO2 26 CHLORIDE S/P/B 106 GLUCOSE 119 mg/dL CALCIUM S/P/B 9.0 BUN 12 CREATININE S/P/B 0.70 0.5 - 1.0 ALKALINE PHOSPHATASE S/P/B 76 ALT 13 AST 20 BILIRUBIN TOTAL S/P/B 0.3 ALBUMIN S/P/B 4.0 3.5 - 5.0 TOTAL PROTEIN S/P/B 6.0 02/02/2021 [facility] Final Result * CBC (OUTSIDE LAB) (02/02/2021) WBC 7.3 HGB 10.7 HCT 34.0 PLT 274 02/02/2021 [facility]-OUTSIDE/ABSTRACTED Final Result * CBC (OUTSIDE LAB) (06/24/2020) WBC 8.6 HGB 12.3 HCT 39.2 PLT 294 06/24/2020 [facility]-OUTSIDE/ABSTRACTED Final Result * THYROID STIM HORMONE, TSH (06/24/2020) TSH 2.67 0.40 - 4.50 06/24/2020 [facility] Final Result * COMPREHENSIVE METABOLIC PANEL (06/24/2020) SODIUM S/P/B 139 POTASSIUM S/P/B 3.9 CO2 29 CHLORIDE S/P/B 102 GLUCOSE 89 mg/dL CALCIUM S/P/B 9.4 BUN 20 CREATININE S/P/B 0.79 0.5 - 1.0 EGFR AFR. AMER. 83 <=90 EGFR NON-AFR. AMER. 72 <=90 ALKALINE PHOSPHATASE S/P/B 55 ALT 10 AST 13 BILIRUBIN TOTAL S/P/B 0.4 ALBUMIN S/P/B 4.1 3.5 - 5.0 TOTAL PROTEIN S/P/B 6.4 GLOBULIN 2.3 06/24/2020 [facility] Edited Resul t - Final * LIPID PANEL (06/24/2020) CHOLESTEROL 191 HDL 55 TRIGLYCERIDES 122 NON HDL CHOLESTEROL 136 LDL (CALCULATED) 113 06/24/2020 [facility] Final Result documented in this encounter Visit Diagnoses Not on filedocumented in this encounter Care Teams Inspector Production Plastic [employer] Relationship Specialty Start Date End Date Geoffrey Reardon MD [address] [facility] [address] [place] [address] PCP - General FAMILY PRACTICE 07/22/17 Bubba Villavicencio MD Three [address] [address] Consulting Physician INTERVENTIONAL CARDIOLOGY 03/20/19 documented as of this encounter
--- OUTSIDE RECORDS SUMMARY | 2024-07-02 00:36 | XMS_ITS | Encounter Summary ---
Author Organization [facility] Address [address] [place] [address] Care Team Providers Care Stations Superintendent Name Role Phone Gabe Montenegro MD Primary Care Provider [phone] Encounter Details Date Type Department Care Team (Late st Contact Info) Description 10/28/2020 Lab Requisition [facility] [address] [place] [phone] Florentino [place] [address] Social History Tobacco Use Types Packs/Day Years Used Date Smoking Tobacco: Never Sex and Gender Information Value Date Recorded Sex Assigned at Not on file Gender Identity Not on file Sexual Orientation Not on file documented as of this encounter Plan of Treatment Not on file documented as of this encounter Procedures Procedure Name Priority Date/Time Associated Diagnosis Comments DERMATOPATHOLOGY Routine 10/26/2020 12:0 0 AM CDT documented in this encounter Results * DERMATOPATHOLOGY (10/26/2020 12:00 AM CDT) Case Report Dermatopathology Report Case: [id number] Authorizing Provider: Florentino Graham MD Collected: 10/26/2020 12:00 AM Ordering Location: [facility] Received: 10/28/2020 05:56 AM Pathologist: Brenda Soriano MD Specimen: Skin, RUQ abdomen 5:25 PM CDT DERMATOPATHOLOGY LABORATORY Final Diagnosis Specimen A. SKIN, RUQ abdomen: VERRUCA VULGARIS (B07.8) SEBORRHEIC KERATOSIS, RETICULATED (ADENOID) TYPE (L82.1) (see microscopic description) 5:25 PM CDT DERMATOPATHOLOGY LABORATORY Clinical History R/O ISK, BCC. 5:25 PM CDT DERMATOPATHOLOGY LABORATORY Gross Description Specimen A: Received is one formalin filled container labeled with the patient's name and designated RUQ abdomen. The specimen consists of a shave biopsy measuring [id number], bisected. Jar 0. 5:25 PM CDT DERMATOPATHOLOGY LABORATORY Microscopic Description Specimen A. SKIN, RUQ abdomen: There is digitated epidermal hyperplasia, hypergranulosis, vacuolated granular layer cells, and compact hyperorthokeratosis . There is reticulated hyperplasia of the epidermis with overlying delicate hyperorthokeratosis . Hyperpigmentation is present in the basaloid cells. 5:25 PM CDT DERMATOPATHOLOGY LABORATORY Disclaimer An external and internal positive and negative controls are appropriate for the histochemical, immunohistochemical and immunofluorescence stain(s) in this case (if any), except where stated explicitly. The performance characteristics of the stain(s) cited in this report were developed and its performance characteristic determined by the Dermatopathology Laboratory at [facility], directed by Dr. Tram Soriano. These tests need not be, and therefore are not, approved by the [place] Food and Drug Administration. The tests are used for clinical purposes. Billing Codes Specimen Charges Stain Charges 65466 1 5:25 PM CDT DERMATOPATHOLOGY LABORATORY Embedded Images 5:25 PM CDT DERMATOPATHOLOGY LABORATORY Pathology/Cytolog y TISSUE SPECIMEN FROM SKIN / Unknown 10/26/2020 10/28/2020 5:56 AM CDT Florentino Graham MD LAB - PATHOLOGY/CYTO LOGY ORDERABLES DERMATOPATHOLOGY LABORATORY [facility] - Department of Dermatology [address], [address] [phone] documented in this encounter Visit Diagnoses Not on filedocumented in this encounter Care Teams Stations Superintendent Relationship Specialty Start Date End Date Gabe Montenegro MD [address] [facility] [address] [facility] [address] [place] [address] PCP - General Internal Medicine 04/03/16 documented as of this encounter
--- OUTSIDE RECORDS SUMMARY | 2024-07-02 00:36 | XMS_ITS ---
Author Organization [facility] Address [address] [place] [address] Care Team Providers Care Life Sciences Director Name Role Phone Geoffrey Reardon MD Primary Care Provider Unavaila Dilcia Kyle Unavailable [phone] Teresa Torres Unavailable Unavailable REASON FOR VISIT Refill Medications Medication SIG (Take, Route, Fr equency, Duration) Notes Start Date End Date Status Famotidine 20 MG 1 tablet Orally 2 ti mes a day for 30 days 12/04/2023 Active Encounters Encounter Location Date Provider Diagnosis [facility] [address] [place] [address] [place] [phone] 12/04/2023 Dilcia Castañeda Dermatitis, unspecified L30.9 Assessments Encounter Date Diagnosis (ICD Code) Assessment Notes Treatment Notes Treatment Clinical Notes Section Notes 12/04/2023 Dermatitis, unspecified (ICD-10 - L30.9) Plan Of Treatment Medication Medication Name Sig Start Date Stop Date Notes Famotidine 20 MG 1 tablet Orally 2 times a day for 30 days 12/04/2023 Progress Notes * VALDESIsatu LEEDOB:[birth year] (83 yo F)Acc No.[id number]:12/04/2023 Patient: Isatu DIAZ :1940 A ge:83 Y S ex:Female Address:[address] [place] [address] * Refills Refill Famotidine Tablet, 20 MG, Orally, 60 Tablet, 1 tablet, 2 times a day, 30 days, Refills=3 * true * Date: Generated for Nura goyal/Wicho/Hosseinitting on: 0 07/02/2024 12:36 AM 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
--- OUTSIDE RECORDS SUMMARY | 2024-07-02 00:36 | XMS_ITS | Clinical Summary ---
Author Organization [facility] Address [address] [facility] [place] [address] Care Team Providers Care Fourchette Sewer Name Role Phone Gabe Motnenegro MD Primary Care Provider [phone] [facility] and Associated Physician Practices is amultiple site organization consisting of ambulatory clinics and hospital sitesin [place], [place], [place] and [place]. This disclosure is being madepursuant to the Care Everywhere program and may not contain all information available regarding this patient. Last updated 18.[facility] Allergies Active Allergy Reactions Criticality Noted Date Comments Penicillins 04/03/2016 Sulfa Drugs 04/03/2016 Medications * Be aware that medications may not be up to date on this document. Alwaysverify current medications with the patient. Medication Sig Dispensed Refills Start Date End Date Status aspirin (ASPIRIN) 81 MG tablet Take 81 mg by mouth once daily Active CLONAZEPAM PO Active DULoxetine HCl (CYMBALTA PO) Active Fluticasone Propionate (FLONASE NA) Active LISINOPRIL-HYDROCHLOROTH IAZIDE PO Active METOPROLOL TARTRATE PO Ac tive OMEPRAZOLE PO Active Albuterol Sulfate (PROAIR HFA IN) Active SIMVASTATIN PO Active fluticasone propionate (FLONASE) 50 MCG/ACT nasal sprayIndications:Acute nasopharyngitis [place] 1 [place] into each nostril 2 times daily 1 Bottle 04/03/2016 Active Social History Tobacco Use Types Packs/Day Years Used Date Smoking Tobacco: Never Sex and Gender Information Value Date Recorded Sex Assigned at Not on file Gender Identity Not on file Sexual Orientation Not on file Last Filed Vital Signs Vital Sign Reading Time Taken Comments Blood Pressure 118/78 04/03/2016 11:32 AM CHIEF TELEPHONE OPERATOR Pulse 105 04/03/2016 11:32 AM CHIEF TELEPHONE OPERATOR Temperature 36.7 C (98.1 F) 04/03/2016 11:32 AM CHIEF TELEPHONE OPERATOR Respiratory Rate 16 04/03/2016 11:32 AM CHIEF TELEPHONE OPERATOR Oxygen Saturation 96% 04/03/2016 11:32 AM CHIEF TELEPHONE OPERATOR Inhaled Oxygen Concentration - - Weight 87.1 kg (192 lb) 04/03/2016 11:32 AM CHIEF TELEPHONE OPERATOR Height 160 cm (5' 3 ) 04/03/2016 11:32 AM CHIEF TELEPHONE OPERATOR Body Mass Index 34.01 04/03/2016 11:32 AM CHIEF TELEPHONE OPERATOR Plan of Treatment Health Maintenance Due Date Last Done Comments BONE DENSITY TESTING 1940 DTAP/TDAP/TD VACCINES (1 - Tdap) 1961 PNEUMOCOCCAL VACCINE 50+ (1 of 1 - PCV) 1992 ZOSTER VACCINE (1 of 2) 1992 Respiratory Syncytial Virus (RSV) Vaccine Pt: or over 60 yrs (1 - 1-dose 75+ series) 2017 COVID-19 VACCINE ( - 2023-2 5 season) 2023 INFLUENZA VACCINE (#1) 2023 DEPRESSION SCREENING 04/29/2024 MEDICARE AWV CALENDAR YEAR 2024 HEPATITIS B VACCINE Aged Out No longe r eligible based on patient's age to complete this topic HIB VACCINE Aged Out No longer eligi ble based on patient's age to complete this topic HPV VACCINE Aged Out No longer eligi ble based on patient's age to complete this topic MENINGOCOCCAL (Group B) VACCINE Aged Out No longer eligible based on patient's age to complete this topic MENINGOCOCCAL VACCINE Aged Out No josiane jackie eligible based on patient's age to complete this topic Care Teams Fourchette Sewer Relationship Specialty Start Date End Date Gabe Montenegro MD [address] [facility] [[email or web address] [address] [place] [phone] PCP - General Internal Medicine 04/03/16
--- OUTSIDE RECORDS SUMMARY | 2024-07-02 00:36 | XMS_ITS | Patient Health Summary ---
Author Organization [facility] Address [address] [facility] [place] [address] Care Team Providers Care Supervisor In Charge Name Role Phone Gabe Montenegro MD Primary Care Provider [phone] Note from [facility],non-owned Affiliates and Associated Physician Practices is amultiple site organization consisting of ambulatory clinics and hospital sitesin [place], [place], [place] and [place]. This disclosure is being madepursuant to the Care Everywhere program and may not contain all information available regarding this patient. Last updated 18.[facility] Allergies * Penicillins * Sulfa Drugs Medications * Be aware that medications may not be up to date on this document. Alwaysverify current medications with the patient. * aspirin (ASPIRIN) 81 MG tablet Take 81 mg by mouth once daily * CLONAZEPAM PO * DULoxetine HCl (CYMBALTA PO) * Fluticasone Propionate (FLONASE NA) * LISINOPRIL-HYDROCHLOROTHIAZIDE PO * METOPROLOL TARTRATE PO * OMEPRAZOLE PO * Albuterol Sulfate (PROAIR HFA IN) * SIMVASTATIN PO * fluticasone propionate (FLONASE) 50 MCG/ACT nasal spray(Started 04/03/2016) [place] 1 [place] into each nostril 2 times daily Social History Tobacco Use Types Packs/Day Years Used Date Smoking Tobacco: Never Sex and Gender Information Value Date Recorded Sex Assigned at Not on file Gender Identity Not on file Sexual Orientation Not on file Last Filed Vital Signs Vital Sign Reading Time Taken Comments Blood Pressure 118/78 04/03/2016 11:32 AM BUS TRANSPORTATION MANAGER Pulse 105 04/03/2016 11:32 AM BUS TRANSPORTATION MANAGER Temperature 36.7 C (98.1 F) 04/03/2016 11:32 AM BUS TRANSPORTATION MANAGER Respiratory Rate 16 04/03/2016 11:32 AM BUS TRANSPORTATION MANAGER Oxygen Saturation 96% 04/03/2016 11:32 AM BUS TRANSPORTATION MANAGER Inhaled Oxygen Concentration - - Weight 87.1 kg (192 lb) 04/03/2016 11:32 AM BUS TRANSPORTATION MANAGER Height 160 cm (5' 3 ) 04/03/2016 11:32 AM BUS TRANSPORTATION MANAGER Body Mass Index 34.01 04/03/2016 11:32 AM BUS TRANSPORTATION MANAGER Procedures * DERMATOPATHOLOGY(Performed 10/26/2020) * STREP A SCREEN - POINT OF CARE (AMB) STL(Performed 04/03/2016) Performed for Acute nasopharyngitis * DERMATOPATHOLOGY(Performed 02/05/2013) * DERMATOPATHOLOGY(Performed 10/30/2011) * DERMATOPATHOLOGY(Performed 06/28/2010) Results * DERMATOPATHOLOGY (10/26/2020 12:00 AM CDT) Only the most recent of4 resultswithin the time period is included. Case Report Dermatopathology Report Case: [id number] Authorizing Provider: Florentino Graham MD Collected: 10/26/2020 12:00 AM Ordering Location: [facility] Lab Received: 10/28/2020 05:56 AM Pathologist: [...] specimen consists of a shave biopsy measuring [id number], bisected. Jar 0. 5:25 PM CDT DERMATOPATHOLOGY LABORATORY Microscopic Description Specimen A. SKIN, RUQ abdomen: There is digitated epidermal hyperplasia, hypergranulosis, vacuolated granular layer cells, and compact hyperorthokeratosis . There is reticulated hyperplasia of the epidermis with overlying delicate hyperorthokeratosis . Hyperpigmentation is present in the basaloid cells. 1 5:25 PM CDT DERMATOPATHOLOGY LABORATORY Disclaimer An external and internal positive and negative controls are appropriate for the histochemical, immunohistochemical and immunofluorescence stain(s) in this case (if any), except where stated explicitly. The performance characteristics of the stain(s) cited in this report were developed and its performance characteristic determined by the Dermatopathology Laboratory at [facility], directed by Dr. Tram Soriano. These tests need not be, and therefore are not, approved by the [place] Food and Drug Administration. The tests are used for clinical purposes. Billing Codes Specimen Charges Stain Charges 87933 1 1 5:25 PM CDT DERMATOPATHOLOGY LABORATORY Embedded Images 1 5:25 PM CDT DERMATOPATHOLOGY LABORATORY Pathology/Cytolog y TISSUE SPECIMEN FROM SKIN / Unknown 10/26/2020 10/28/2020 5:56 AM CDT Florentino Graham MD LAB - PATHOLOGY/CYTO LOGY ORDERABLES DERMATOPATHOLOGY LABORATORY [facility] - Department of Dermatology [address] [phone] * STREP A SCREEN (04/03/2016) Strep A Rapid POCT Negative Negative Strep A Internal Control Present Lot # [id number] Expiration Date 52710506 Throat ENTIRE THROAT (SURFACE REGION OF NECK) / Unknown 04/03/2016 Delia López APRN-RECREATION COORDINATOR LAB - POINT OF CARE ORDERABLES Care Teams Supervisor In Charge Relationship Specialty Start Date End Date Gabe Montenegro MD [address] [place] [address] PCP - General Internal Medicine 04/03/16
--- OUTSIDE RECORDS SUMMARY | 2024-07-02 00:36 | XMS_ITS | Patient Health Record ---
Author Organization [facility] Address [address] [place] [address] Care Team Providers Care Isotope Technologist Name Role Phone Geoffrey Reardon MD Primary Care Provider Unavaila Dilcia Kyle Unavailable [phone] Teresa Torres Unavailable Unavailable [employer], Provider Unavailable Unavailab le Allergies Allergen (clinical drug ingredient) Drug/Non Drug Allergy documented on EMR Reaction Allergy Type Onset Date Status Lisinopril unknown reaction Drug Allergy Active Reason For Referral No Information Medications Medication SIG (Take, Route, Frequency, Duration) Notes Start Date End Date Status Levocetirizine Dihydrochloride 5 MG 1 tab(s) orally once a day (in the evening) for 30 day(s) Active Multaq 400 MG 1 tab(s) orally 2 times a day Active Meclizine HCl *Please review and pick correct strength-formulat ion from [employer] options. If intended option is not shown, discontinue and re-order from Quick Search* Active Azelastine HCl 137 MCG/SPRAY 2 spray(s) intranasally 2 times a day Active Albuterol Sulfate HFA 108 (90 Base) MCG/ACT 2 puff(s) inhaled every 6 hours Active FAMOTIDINE 20 mg 1 tab(s) orally 2 times a day for 30 days Active Azelastine HCl 137 MCG/SPRAY 2 puffs Nasally Twice a day for 30 days 10/22/2023 Active clonazePAM 1 MG 1 tab(s) orally 3 times a day Active LEVOCETIRIZINE 5 mg 1 tab(s) orally twice a day for 30 days Active Rivastigmine 4.5 MG 1 CAP(S) ORALLY 2 TIMES A DAY *Please review and pick correct strength-formulat ion from [employer] options. If intended option is not shown, discontinue and re-order from Quick Search* Active Famotidine 20 MG 1 tab(s) orally 2 times a day for 30 days Active Famotidine 20 MG 1 tablet Orally 2 times a day for 30 days 12/04/2023 Active Memantine HCl 5 MG 1 tab(s) orally 2 times a day Active Atorvastatin Calcium *Please rev iew and pick correct strength-formulat ion from [employer] options. If intended option is not shown, discontinue and re-order from Quick Search* Active Valsartan 320 MG 1 tab(s) orally once a day Active Tacrolimus *Please review and pick correct strength-formulat ion from [employer] options. If intended option is not shown, discontinue and re-order from Quick Search* Active Xarelto *Please review and pick correct strength-formulat ion from [employer] options. If intended option is not shown, discontinue and re-order from Quick Search* Active Sertraline HCl *Please review and pick correct strength-formulat ion from [employer] options. If intended option is not shown, discontinue and re-order from Quick Search* Active Singulair *Please review and pick correct strength-formulat ion from [employer] options. If intended option is not shown, discontinue and re-order from Quick Search* Active Famotidine 20 MG 1 tablet Orally twice a day for 90 days 04/07/2024 Active Omeprazole *Please review and pick correct strength-formulat ion from [employer] options. If intended option is not shown, discontinue and re-order from Quick Search* Active Social History Tobacco Use: Social History Observation Description Date Details (start date - stop date) Never Smoker NA - NA Tobacco Control (Standard) Question Answer Notes Tobacco use: Nonsmoker Section Notes: retired retired Problems Problem Type SNOMED Code ICD Code Onset Dates Problem Status W/U Status Risk Notes Problem Chronic allergic conjunctivitis (59154464) Other chronic allergic conjunctivitis (H10.45) Active confirmed Problem Allergic rhinitis caused by pollen (disorder) (09886304) Allergic rhinitis due to pollen (J30.1) Active confirmed Problem Allergic rhinitis (72679223) Other allergic rhinitis (J30.89) Active confirmed Vital Signs Oximetry 97 % 10/22/2023 Blood pressure diastolic 61 mm Hg 10/22/2023 Height 64 in 10/22/2023 Blood pressure systolic 131 mm Hg 10/22/2023 Weight 198.4 lbs 10/22/2023 BMI 34.05 kg/m2 10/22/2023 Encounters Encounter Location Date Provider Diagnosis [address] [place] [address] 10/12/2023 Provider DINAH-Ethan Dermatitis, unspecified L30.[address] [address] 07/31/2023 Dilcia Garry Allergic rhinitis du e to pollen J30.1 ; Dermatitis, unspecified L30.9 and Other chronic allergic conjunctivitis H10.[address] [address] 10/22/2023 Dilcia Garry Allergic rhinitis du e to pollen J30.1 ; Dermatitis, unspecified L30.9 and Other chronic allergic conjunctivitis H10.[address] [address] 12/04/2023 Dilcia Garry Dermatitis, unspecified L30.[address] [address] 04/07/2024 Dilcia Garry Dermatitis, unspecified L30.9 Assessments Encounter Date Diagnosis (ICD Code) Assessment Notes Treatment Notes Treatment Clinical Notes Section Notes 10/22/2023 Allergic rhinitis due to pollen (ICD-10 - J30.1) Isatu clearly suffers from atopic disease based upon our skin testing and clinical history. Accordingly, we have introduced a new, aggressive medication regimen, discussed nasal washes and allergy-specific avoidance measures. Start Astelin for post nasal drip 10/22/2023 Dermatitis, unspecified (ICD-10 - L30.9) Unclear cause for pruritus, skin is clear today, possible hives but also many skin tags present which may be causing itching. We discussed increasing Xyzal to BID and adding famotidine if needed for itching. Written instructions given. 12/04/2023 Dermatitis, unspecified (ICD-10 - L30.9) 04/07/2024 Dermatitis, unspecified (ICD-10 - L30.9) 10/12/2023 Dermatitis, unspecified (ICD-10 - L30.9) 07/31/2023 Allergic rhinitis due to pollen (ICD-10 - J30.1) Given the history and symptoms, skin testing was performed to common aeroallergens to determine atopic status. clearly suffers from atopic disease based upon our skin testing and clinical history. Accordingly, we have introduced a new, aggressive medication regimen, discussed nasal washes and allergy-specific avoidance measures. 07/31/2023 Dermatitis, unspecified (ICD-10 - L30.9) Unclear cause for pruritus, skin is clear today, possible hives but also many skin tags present which may be causing itching. Start a trial of Pepcid and Xyzal. A copy of this consultation report was sent to the requesting physician. 07/31/2023 Other chronic allergic conjunctivitis (ICD-10 - H10.45) Given ocular signs and symptoms I encouraged allergy avoidance measures and meds as above. If symptoms persist, consider adding additional medications including intraocular antihistamine/mas t cell stabilizer, PRN and consider SCIT as an adjunctive measure 10/22/2023 Other chronic allergic conjunctivitis (ICD-10 - H10.45) Given ocular signs and symptoms I encouraged allergy avoidance measures and meds as above. If symptoms persist, consider adding additional medications including intraocular antihistamine/mas t cell stabilizer, PRN 10/02/2023 Other 07/31/2023 Other 10/22/2023 Other Plan Of Treatment No Information Insurance Providers Payer Name Payer Address Payer Phone Subscriber Number Group Number Insured Name Patient Relationship to Insured Coverage Start Date Coverage End Date [employer] [address] [place] [address] [id number] Isatu Gonsales Self - patient is the insured 4 for [employer] [address] [place] [address] [id number] Robert Gonsales Spouse - patient is the spouse of the insured Medical (General) History Medical History History ICD Code Atrial Fibrillation Bradycardia Dementia Surgical History Surgery Date(Month/Year) cholecystectomy bladder suspension, unspecified hip replacement knee replacement Wrist Surgery hysterectomy
--- OUTSIDE RECORDS SUMMARY | 2024-07-02 00:36 | XMS_ITS | Referral Summary ---
Author Organization [facility] Address [address] [facility] [place] [address] Care Team Providers Care Global Human Resources Director Name Role Phone Gabe Montenegro MD Primary Care Provider [phone] Source Comments [facility] and Associated Physician Practices is amultiple site organization consisting of ambulatory clinics and hospital sitesin [place], [place], [place] and [place]. This disclosure is being madepursuant to the Care Everywhere program and may not contain all information available regarding this patient. Last updated 18.[facility] Allergies Active Allergy Reactions Criticality Noted Date [...] propionate (FLONASE) 50 MCG/ACT nasal sprayIndications:Acute nasopharyngitis [place] 1 [place] into each nostril 2 times daily 1 Bottle 04/03/2016 Active Social History Tobacco Use Types Packs/Day Years Used Date Smoking Tobacco: Never Sex and Gender Information Value Date Recorded Sex Assigned at Not on file Gender Identity Not on file Sexual Orientation Not on file Last Filed Vital Signs Vital Sign Reading Time Taken Comments Blood Pressure 118/78 04/03/2016 11:32 AM RUN LEAD Pulse 105 04/03/2016 11:32 AM RUN LEAD Temperature 36.7 C (98.1 F) 04/03/2016 11:32 AM RUN LEAD Respiratory Rate 16 04/03/2016 11:32 AM RUN LEAD Oxygen Saturation 96% 04/03/2016 11:32 AM RUN LEAD Inhaled Oxygen Concentration - - Weight 87.1 kg (192 lb) 04/03/2016 11:32 AM RUN LEAD Height 160 cm (5' 3 ) 04/03/2016 11:32 AM RUN LEAD Body Mass Index 34.01 04/03/2016 11:32 AM RUN LEAD Plan of Treatment Not on file Care Teams Global Human Resources Director Relationship Specialty Start Date End Date Gabe Montenegro MD [address] [place] [phone] PCP - General Internal Medicine 04/03/16
--- OUTSIDE RECORDS SUMMARY | 2024-07-02 00:36 | XMS_ITS | Continuity of Care Document ---
Author Organization [facility] Address [address] [place] [address] Phone Care Team Providers Care Gasoline Dragline Operator Name Role Phone Sage Flynn Unavailable Unavailable Procedures Procedure Date Eye Exam & Treatment Refraction Eye Exam & Treatment Eye Exam & Treatment Refraction Advance Directives Directive Yes / No Effective Date File Name No Information Encounters Encounter Description Practice Location Reason(s) For Visit Diagnoses Date Provider Providers Copied on Encounter [facility], [address] [place] [address] [address], [place], [place], [id number], tel:[phone] [facility] No Information [phone] 0 Rina Cazares. [address] [facility] [facility] , [address], [place], [place], [facility], [place]. tel:[phone] [facility], [address] [place] [address] [address], [place], [place], [id number], [place] tel:[phone] [facility] No Information 1-200 8 Dinosy Sage. [address] [facility] [facility] [address] , [address], [place], [address], [place]. tel:[phone] [facility], [address] [place] [address] [address], [place], [place], [id number], [place] tel:[phone] [address] [facility] No Information 1200 7 Dinobenny Sage. [address] , [address], [place], [address], [place]. tel:[phone] Family History Family Member Type Diagnosis Age At Onset No Information Payers Payer name Insurance type Covered democrat ID Authoriza tion(s) Medicare [facility] [id number] For Life Mdcr Supp CI [id number] Social History Type Description Quantity Date Captured Comments Sex Female Smoking Status No Information Chief Complaint And Reason For Visit No Information Reason For Referral Reason For Referral No Information History Of Present Illness Encounter Date Complaint History Of Prese nt Illness No Information Functional Status Date Functional Assessmen t No Information Instructions Date Instruction Additional Infor mation No Information Assessments Type Assessment Date No Information Patient Care Teams Name Effective Dates (start - stop) Status Members No Information
--- OUTSIDE RECORDS SUMMARY | 2024-07-02 00:36 | XMS_ITS | Clinical Summary ---
Author Organization [facility] Address [address] [place] [address] Care Team Providers Care English Adjunct Faculty Name Role Phone Geoffrey Reardon MD Primary Care Provider [phone] Bubba Villavicencio MD Unavailable [phone] Allergies No known active allergies Medications albuterol sulfate HFA (PROAIR HFA) 108 (90 BASE) MCG/ACT inhaler Inhale 2 puffs into the lungs every 6 (six) hours as needed for Wheezing. 1 Inhaler 1 7 Active azelastine (ASTELIN) 0.1 % nasal spray 2 sprays by Nasal route 2 (two) times daily. 7 Active clonazePAM 1 MG tablet Take 1 tablet (1 mg total) by mouth nightly as needed for Anxiety. 7 Active omeprazole 40 MG capsule Take 1 capsule (40 mg total) by mouth daily. 7 Active fluticasone propionate (FLONASE) 50 MCG/ACT nasal spray 2 sprays by Each Nostril route daily as needed for Rhinitis. 9 Active atorvastatin 40 MG tablet Take 1 tablet (40 mg total) by mouth nightly at bedtime. 90 tablet 3 2 Active sertraline 25 MG tablet Take 1 tablet (25 mg total) by mouth nightly. 2 Active rivastigmine (EXELON) 4.5 MG capsule Take 1 capsule (4.5 mg total) by mouth 2 (two) times daily. 2 Active meclizine (ANTIVERT) 12.5 MG tablet TAKE 1 TABLET BY MOUTH THREE TIMES DAILY NEEDED FOR DIZZINESS 2 Active dronedarone (MULTAQ) 400 MG tablet TAKE 1 TABLET(400 MG) BY MOUTH TWICE DAILY WITH MEALS 180 tablet 1 2 Active lisinopril (PRINIVIL) 30 MG tablet Take 1 tablet (30 mg total) by mouth daily. 3 Active metoprolol tartrate (LOPRESSOR) 25 MG tablet TAKE 1/2 TABLET(12.5 MG) BY MOUTH TWICE DAILY 30 tablet 4 Active rivaroxaban (XARELTO) 20 MG Tab tablet TAKE 1 TABLET(20 MG) BY MOUTH DAILY WITH SUPPER 15 tablet 5 Active Active Problems Problem Noted Date Diagnosed Date PVC (premature ventricular contraction) 08/23/19 Assessment & Plan (08/22/2021 8:36 AM CDT): High burden on recent HM Currently on multaq and metoprolol Not interested in ablation Would like to discuss amiodarone vs sotolol - will discuss with BRIANDA TREJO Dizziness 05/22/2021 Assessment & Plan (05/22/2021 1:48 PM FOOD TECHNOLOGIST): Continues to have dizziness. Given her infrequency of atrial fibrillation, I do not think it is causing her dizziness. I suggested neurological evaluation or an MRI of the brain for further evaluation of her symptoms. Paroxysmal atrial fibrillation ([facility]) 03/20/2021 Assessment & Plan (09/10/2022 2:27 PM CDT): She is currently in normal sinus rhythm on Multaq. She is tolerating anticoagulation without difficulty. We have had prior discussions regarding left atrial appendage closure and she is not interested at this time. Assessment & Plan (04/03/2022 5:04 PM FOOD TECHNOLOGIST): She had paroxysmal atrial fibrillation noted on her monitor. Continue Multaq and metoprolol and start Xarelto for anticoagulation. I had a long discussion with her and her about risks and benefits of anticoagulation. I explained anticoagulation for stroke prevention. We discussed the risk of falling and possible intracerebral hemorrhage. We also discussed left atrial appendage closure with watchman. I had a lengthy discussion with the patient explaining the role of atrial fibrillation and thromboembolic risk. We specifically discussed the role of the left atrial appendage as a source for thromboembolic processes. Risks for the WATCHMAN procedure include but are not limited to: bleeding, vascular damage, cardiac perforation requiring pericardiocentesis and possible surgical sternotomy by cardiothoracic surgery, cerebrovascular accident, myocardial infarction, and even rarely . Per published data: 6.5% procedure/device related adverse events per PROTECT AF, 3.0% procedure/device related event in the CAP registry, and in the PREVAIL trial the complication rate was 2.2%. A recent real world registry data shows approximately the similar results as PREVAIL trial. The patient understands that coumadin will have to be tolerated for 6 weeks post implant per current FDA approval guidelines, and a repeat transesophageal echocardiogram would be necessary. If no leak seen, or mural thrombus noted, then would come off coumadin, and continue ASA/Plavix for 6 months, followed by aspirin monotherapy. Assessment & Plan (08/22/2021 8:32 AM CDT): Minimal PAF on HM Continue Multaq and metoprolol for now xarelto for anticoagulation Obtaining information through structural community health program coordinator Watchman consultation Assessment & Plan (05/22/2021 1:47 PM FOOD TECHNOLOGIST): She had paroxysmal atrial fibrillation noted on her monitor. Continue Multaq and metoprolol and start Xarelto for anticoagulation. I had a long discussion with her and her about risks and benefits of anticoagulation. I explained anticoagulation for stroke prevention. We discussed the risk of falling and possible intracerebral hemorrhage. We also discussed left atrial appendage closure with watchman. Assessment & Plan (03/20/2021 3:41 PM FOOD TECHNOLOGIST): Her EKG in the office shows normal sinus rhythm. I do not have the final results of her event monitor, but I told her that there was one episode of atrial fibrillation and we will review the monitor to further assess her burden. I discussed options with her for rate and rhythm control and she is fine to stay on metoprolol. I discussed options with her regarding stroke prevention. I discussed pros and cons of anticoagulation. She is concerned about falling while on anticoagulation and I think this is a reasonable concern. I had a lengthy discussion with the patient explaining the role of atrial fibrillation and thromboembolic risk. We specifically discussed the role of the left atrial appendage as a source for thromboembolic processes. Risks for the WATCHMAN procedure include but are not limited to: bleeding, vascular damage, cardiac perforation requiring pericardiocentesis and possible surgical sternotomy by cardiothoracic surgery, cerebrovascular accident, myocardial infarction, and even rarely . Per published data: 6.5% procedure/device related adverse events per PROTECT AF, 3.0% procedure/device related event in the CAP registry, and in the PREVAIL trial the complication rate was 2.2%. A recent real world registry data shows approximately the similar results as PREVAIL trial. The patient understands that coumadin will have to be tolerated for 6 weeks post implant per current FDA approval guidelines, and a repeat transesophageal echocardiogram would be necessary. If no leak seen, or mural thrombus noted, then would come off coumadin, and continue ASA/Plavix for 6 months, followed by aspirin monotherapy. Antiplatelet or antithrombotic long-term use On statin therapy 11/16/2017 Obesity (BMI 30.0-34.9) 01/13/2016 Essential hypertension Assessment & Plan (09/10/2022 2:28 PM CDT): I reviewed her blood pressure log and she has significantly labile blood pressures. Given her dizziness and potential for falling, I am hesitant to increase her antihypertensive therapy further. She can continue lisinopril. If she continues have difficulty with labile blood pressures especially [place], she can take hydralazine as needed or potentially start another antihypertensive such as amlodipine. Her blood pressure in the office today is well controlled. Assessment & Plan (04/03/2022 4:21 PM FOOD TECHNOLOGIST): Her blood pressure is elevated in the office. Encouraged home blood pressure monitoring. Continue lisinopril, metoprolol Assessment & Plan (08/21/2021 8:23 AM CDT): Blood pressure is well controlled with no changes in regimen at this time Encouraged to continue to monitor at home and log and call office with any concerns in future. Assessment & Plan (05/22/2021 1:49 PM FOOD TECHNOLOGIST): Her blood pressure is elevated in the office today. I encouraged home blood pressure monitoring. Continue lisinopril, metoprolol. Assessment & Plan (03/20/2021 3:42 PM FOOD TECHNOLOGIST): Her blood pressure is elevated in the office today. I encouraged home blood pressure monitoring. Continue lisinopril, metoprolol. Chest pain Mixed hyperlipidemia Assessment & Plan (09/10/2022 2:29 PM CDT): Her lipids were well controlled in June 2022. Continue atorvastatin. Assessment & Plan (04/03/2022 4:19 PM FOOD TECHNOLOGIST): Her lipids were well controlled in June of this year. Continue atorvastatin. Assessment & Plan (08/22/2021 8:36 AM CDT): Statin therapy is well tolerated without any reports of Statin-associated muscle symptoms (GREGORIO). Target goal of LDL < 70 Ref Range & Units 07/22/21 CHOLESTEROL 0 - 200 130 HDL >50 52 TRIGLYCERIDE 0 - 150 80 NON HDL CHOLESTEROL 0 - 130 78 CHOL/HDL RATIO 0.0 - 5.0 2.5 LDL (CALCULATED) 0 - 100 62 Assessment & Plan (05/22/2021 1:50 PM FOOD TECHNOLOGIST): Continue atorvastatin. Assessment & Plan (03/20/2021 3:42 PM FOOD TECHNOLOGIST): Her lipids were elevated at the beginning of the year. Continue atorvastatin. 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 She has had a prior cardiac catheterization without any flow-limiting stenoses. Continue metoprolol, atorvastatin and anticoagulation. Resolved Problems Problem Noted Date Diagnosed Date Resolved Date Type 2 diabetes mellitus wit hout complication ([facility]) 01/13/2016 06/12/2021 Immunizations Name Administration Dates Next Due Influenza (Generic) 02/03/2019 Influenza Adult (Generic) 01/05/2020,,02/19/2017,01/18/2016,2014 Family History Medical History Relation Comments Coronary artery disease Father Relation Status Comments Father Social History Tobacco Use Types Packs/Day Years Used Date Smoking Tobacco: Never Smokeless Tobacco: Never Tobacco Cessation:Counseling Given: Not Answered Alcohol Use Standard Drinks/Week Comments No 0 [...] file Not on file Not on file Last Filed Vital Signs Vital Sign Reading Time Taken Comments Blood Pressure 128/68 09/10/2022 10:39 AM CDT Pulse 70 09/10/2022 10:39 AM CDT Temperature 36.8 C (98.3 F) 03/17/2019 7:46 AM FOOD TECHNOLOGIST Respiratory Rate 16 03/17/2019 12:15 PM FOOD TECHNOLOGIST Oxygen Saturation 97% 09/10/2022 10:39 AM CDT Inhaled Oxygen Concentration - - Weight 86 kg (189 lb 9.6 oz) 09/10/2022 10:39 AM CDT Height 160 cm (5' 3 ) 09/10/2022 10:39 AM CDT Body Mass Index 33.59 09/10/2022 10:39 AM CDT Plan of Treatment Health Maintenance Due Date Last Done Comments ASCVD Statin 1940 Pneumococcal Vaccine: 65+ Years (1 of 2 - PCV) 1948 DTaP, Tdap and Td Vaccines (1 - Tdap) 1961 Zoster Vaccines (1 of 2) 1992 Annual Medicare Wellness Visit 2007 Dexa Scan (General) 2007 RSV Immunization or 60+ Years (1 - 1-dose 75+ series) 2017 ASCVD LDL 07/17/2023 07/16/2022, 03/2 09/2021, 06/24/2020, Additional history exists COVID-19 Vaccine (3 - 2023- season) 2023 07/19/2020, 06/08/2020 Influenza Adult (#1) 2024 01/05/2020, 02/03/2019, 01/16/2018, Additional history exists PHQ-2 (Physician [place]) 04/29/2024 Meningococcal B Vaccine Aged Out No l onger eligible based on patient's age to complete this topic Meningococcal Vaccine Aged Out No josiane jackie eligible based on patient's age to complete this topic RSV Immunizations Under 20 Months Aged Out No longer eligible based on patient's age to complete this topic Procedures Procedure Name Priority Date/Time Associated Diagnosis Comments LIPID PANEL Routine 07/16/2022 from Last 3 Months or Most Recently Relevant to Health Maintenance Results * LIPID PANEL (07/16/2022) CHOLESTEROL 120 TRIGLYCERIDES 63 HDL 61 LDL (CALCULATED) 45 NON HDL CHOLESTEROL 59 Narrative Resulting Agency Comment us Default History Genericprovider LABORATORY Edited Result - Final from Last 3 Months or Most Recently Relevant to Health Maintenance Insurance HUMANA AETNA HUMANA AETNA Advance Directives * Full Code (Latest Code Status on File) Date Activated Date Inactivated Comments 03/17/2019 9:19 AM 03/17/2019 2:44 PM Care Teams English Adjunct Faculty Relationship Specialty Start Date End Date Geoffrey Reardon MD [address] [place] [address] PCP - General FAMILY PRACTICE 07/22/17 Bubba Villavicencio MD [address] [address] Consulting Physician INTERVENTIONAL CARDIOLOGY 03/20/19
--- OUTSIDE RECORDS SUMMARY | 2024-07-02 00:37 | XMS_ITS ---
Author Organization [facility] Address [address] [place] [address] Care Team Providers Care Precision Grinder External Name Role Phone Geoffrey Reardon MD Primary Care Provider Unavaila Dilcia Kyle Unavailable [phone] Teresa Torres Unavailable Unavailable REASON FOR VISIT Refill Medications Medication SIG (Take, Route, Fr equency, Duration) Notes Start Date End Date Status Famotidine 20 MG 1 tablet Orally twic e a day for 90 days 04/07/2024 Active Encounters Encounter Location Date Provider Diagnosis [facility] [address] [place] [address] [place] [id number] 04/07/2024 Dilcia Castañeda Dermatitis, unspecified L30.9 Assessments Encounter Date Diagnosis (ICD Code) Assessment Notes Treatment Notes Treatment Clinical Notes Section Notes 04/07/2024 Dermatitis, unspecified (ICD-10 - L30.9) Plan Of Treatment Medication Medication Name Sig Start Date Stop Date Notes Famotidine 20 MG 1 tablet Orally twice a day for 90 days 1 06/08/2023 Progress Notes * Isatu VAL[birth year]DOB:[birth year] (83 yo F)Acc No.[id number]:04/07/2024 Patient: Isatu DIAZ :1940 A ge:83 Y S ex:Female Address:[address] [place] [address] * Refills Start Famotidine Tablet, 20 MG, Orally, 180 Tablet, 1 tablet, twice a day, 90 days, Refills=1 * true * Date: Generated for Nura goyal/Wicho/Hosseinitting on: 0 07/02/2024 12:36 AM METEOROLOGICAL OBSERVER
--- OUTSIDE RECORDS SUMMARY | 2024-07-02 00:37 | XMS_ITS | Encounter Summary ---
Author Organization [facility] Address [address] [place] [address] Care Team Providers Care Metal Drilling Machine Operator Name Role Phone Gabe Montenegro MD Primary Care Provider [phone] Shahzad Beckham MD Unavailable [phone] Geoffrey Reardon MD Primary Care Provider [phone] Bubba Villavicencio MD Unavailable [phone] Encounter Details Date Type Department Care Team (Late st Contact Info) Description 11/13/2016 Abstract [facility] AT [address] [address] Alfredo Brothers [place] Social History Tobacco Use [...] Procedure Name Priority Date/Time Associated Diagnosis Comments COMPREHENSIVE METABOLIC PANEL Routine 07/16/2022 LIPID PANEL Routine 07/16/2022 CBC, MANUAL DIFF Routine 07/16/2022 THYROID STIM HORMONE TSH Routine 07/16/2022 COMPREHENSIVE METABOLIC PANEL Routine 02/24/2019 LIPID PANEL Routine 02/24/2019 THYROID STIM HORMONE TSH Routine 02/24/2019 CBC (OUTSIDE LAB) Routine 06/09/2018 COMPREHENSIVE METABOLIC PANEL Routine 06/09/2018 THYROID STIM HORMONE TSH Routine 06/09/2018 CBC (OUTSIDE LAB) Routine 07/29/2015 VITAMIN B-12 Routine 07/29/2015 COMPREHENSIVE METABOLIC PANEL Routine 07/29/2015 THYROID STIM HORMONE TSH Routine 07/29/2015 documented in this encounter Results * COMPREHENSIVE METABOLIC PANEL (07/16/2022) SODIUM S/P/B 140 GLUCOSE 87 mg/dL AST 13 BUN 14 CREATININE S/P/B 0.85 0.5 - 1.0 CALCIUM S/P/B 9.2 POTASSIUM S/P/B 3.7 CHLORIDE S/P/B 104 ALT 9 GFR ESTIMATE 69 Narrative Resulting Agency Comment us Default History Genericprovider LABORATORY Edited Result - Final * LIPID PANEL (07/16/2022) CHOLESTEROL 120 TRIGLYCERIDES 63 HDL 61 LDL (CALCULATED) 45 NON HDL CHOLESTEROL 59 Narrative Resulting Agency Comment us Default History Genericprovider LABORATORY Edited Result - Final * CBC, MANUAL DIFF (07/16/2022) WBC 8.4 HGB 11.6 HCT 36.5 PLT 278 Narrative Resulting Agency Comment us Default History Genericprovider LABORATORY Edited Result - Final * THYROID STIM HORMONE, TSH (07/16/2022) TSH 3.61 Narrative Resulting Agency Comment us Default History Genericprovider LABORATORY Edited Result - Final * THYROID STIM HORMONE, TSH (02/24/2019) Pathologist [facility] TSH 2.93 0.40 - 4.50 02/24/2019 us Doc [facility] Abstract LABORATORY Edited Resul t - Final * COMPREHENSIVE METABOLIC PANEL (02/24/2019) Pathologist [facility] SODIUM S/P/B 136 135 - 146 POTASSIUM S/P/B 4.0 3.5 - 5.3 CO2 32 20 - 32 CHLORIDE S/P/B 99 98 - 110 GLUCOSE 104 65 - 99 mg/dL CALCIUM S/P/B 9.9 8.6 - 10.4 BUN 14 7 - 25 CREATININE S/P/B 0.77 0.5 - 1.0 EGFR AFR. AMER. 87 <=90 EGFR NON-AFR. AMER. 75 <=90 ALKALINE PHOSPHATASE S/P/B 48 33 - 130 ALT 10 6 - 29 AST 14 10 - 35 BILIRUBIN TOTAL S/P/B 0.4 0.2 - 1.2 ALBUMIN S/P/B 4.3 3.5 - 5.0 TOTAL PROTEIN S/P/B 6.3 6.1 - 8.1 GLOBULIN 2.0 1.9 - 3.7 02/24/2019 us Doc [facility] LABORATORY Edited Resul t - Final * LIPID PANEL (02/24/2019) CHOLESTEROL 154 <200 HDL 56 >50 TRIGLYCERIDES 116 <150 NON HDL CHOLESTEROL 98 <130 LDL (CALCULATED) 78 <100 02/24/2019 us Doc [facility] LABORATORY Edited Resul t - Final * CBC (OUTSIDE LAB) (06/09/2018) Pathologist [facility] WBC 5.9 HGB 12.4 HCT 38.9 PLT 250 06/09/2018 us Doc [facility] Abstract LAB-OUTSIDE/ABSTRACTED Final Result * THYROID STIM HORMONE, TSH (06/09/2018) TSH 2.86 06/09/2018 us Doc [facility] LABORATORY Final Result * (ABNORMAL) COMPREHENSIVE METABOLIC PANEL (06/09/2018) SODIUM S/P/B 139 POTASSIUM S/P/B 3.8 CO2 30 CHLORIDE S/P/B 101 GLUCOSE 88 mg/dL CALCIUM S/P/B 9.3 BUN 12 CREATININE S/P/B 0.72 0.5 - 1.0 EGFR AFR. AMER. 94(A) <=90 EGFR NON-AFR. AMER. 81 <=90 ALKALINE PHOSPHATASE S/P/B 59 ALT 11 AST 14 BILIRUBIN TOTAL S/P/B 0.3 ALBUMIN S/P/B 4.2 3.5 - 5.0 TOTAL PROTEIN S/P/B 6.5 GLOBULIN 2.3 06/09/2018 us Doc [facility] LABORATORY Final Result * VITAMIN B-12 (07/29/2015) VITAMIN B12 S/P/B 466 07/29/2015 us Doc [facility] LABORATORY Edited Resul t - Final * CBC (OUTSIDE LAB) (07/29/2015) WBC 7.8 HGB 12.7 HCT 38.1 PLT 272 07/29/2015 us Doc [facility] Abstract LAB-OUTSIDE/ABSTRACTED Edite d Result - Final * THYROID STIM HORMONE, TSH (07/29/2015) TSH 2.95 07/29/2015 us Doc [facility] Abstract LABORATORY Edited Resul t - Final * COMPREHENSIVE METABOLIC PANEL (07/29/2015) SODIUM S/P/B 133 POTASSIUM S/P/B 4.1 CO2 29 CHLORIDE S/P/B 95 GLUCOSE 87 CALCIUM S/P/B 9.4 BUN 21 CREATININE S/P/B 0.82 0.5 - 1.0 EGFR AFR. AMER. 82 <=90 EGFR NON-AFR. AMER. 71 <=90 ALKALINE PHOSPHATASE S/P/B 52 ALT 15 AST 16 BILIRUBIN TOTAL S/P/B 0.3 ALBUMIN S/P/B 4.1 3.5 - 5.0 TOTAL PROTEIN S/P/B 6.5 GLOBULIN 2.4 07/29/2015 us Doc [facility]ORAT[facility] Final Result documented in this encounter Visit Diagnoses Not on filedocumented in this encounter Care Teams Metal Drilling Machine Operator Relationship Specialty Start Date End Date Gabe Montenegro MD [address] [facility] [address] [place] [address] PCP - General INTERNAL MEDICINE 09/28/15 07/21/17 Geoffrey Reardon MD [address] [facility] [address] [place] [address] PCP - General FAMILY PRACTICE 07/22/17 Shahzad Beckham MD [address] [facility] [address] [place] [address] [place] Director Of Managed Services CARDIOVASCULAR DISEASE 09/28/15 03/19/19 Bubba Villavicencio MD [address] [facility]. [facility] [address] [place] [address] Consulting Physician INTERVENTIONAL CARDIOLOGY 03/20/19 documented as of this encounter
--- OUTSIDE RECORDS SUMMARY | 2024-07-02 00:37 | XMS_ITS | Continuity of Care Document ---
Author Organization [facility] [facility] Address [address] [place] [address] [address] [place] [address] Phone Care Team Providers Care Concrete Pavement Installer Name Role Phone Murtaza PT,MPT,ATC, Esteban Unavailable Unavai lable Procedures Procedure Date Therapeutic Exercise Hot or Cold Pack Electrical Stimulation Progress Note Therapeutic Exercise Therapeutic Activities Manual Therapy Hot or Cold Pack Electrical Stimulation Therapeutic Exercise Therapeutic Activities Manual Therapy Hot or Cold Pack Therapeutic Exercise Therapeutic Activities Manual Therapy Hot or Cold Pack Therapeutic Exercise Therapeutic Activities Neuromuscular Re-Ed Electrical Stimulation Therapeutic Exercise Therapeutic Activities Neuromuscular Re-Ed Electrical Stimulation Therapeutic Exercise Therapeutic Activities Electrical Stimulation Therapeutic Exercise Hot or Cold Pack Electrical Stimulation Therapeutic Exercise Neuromuscular Re-Ed Electrical Stimulation Therapeutic Exercise Cold Pack - Oversized Therapeutic Exercise Therapeutic Activities Therapeutic Exercise Therapeutic Exercise Therapeutic Activities PT Evaluation High Complexity 8 Therapeutic Exercise Neuromuscular Re-Ed Advance Directives Directive Yes / No Effective Date File Name No Information Encounters Encounter Description Practice Location Reason(s) For Visit Diagnoses Date Provider Providers Copied on Encounter [address], [id number], tel:[phone] [place] [facility] with sciatica, left sidePain in left kneePain in left hip [place], [place], . Referring Provider: Sreekanth De León[address], [place], [address]. tel:[phone] [address], [place], [place], [id number], tel:[phone] [place] [facility] with sciatica, left sidePain in left kneePain in left hip [place], [place], [place]. Referring Provider: Sreekanth De León[address], [place], [address]. tel:[phone] [address] [address], [place], [place], [id number], tel:[phone] [place] [facility] with sciatica, left sidePain in left kneePain in left hip [place]. [address] [facility], [address], [place], [facility], . tel:[phone] Referring Provider: Sreekanth De León[address], [place], [address]. tel:[phone] [address] [address], [place], [place], [id number], tel:[phone] [place] [facility] with sciatica, left sidePain in left kneePain in left hip [place] [address] [facility], [address], [place], [place], [facility], [place]. tel:[phone] Referring Provider: Aruna De León [address], [place], [address]. tel:[phone], [place], [place], [id number], [place] tel:[phone] [place] [facility] with sciatica, left sidePain in left kneePain in left hip [place], [place], [place]. Referring Provider: Aruna De León [address], [place], [address]. tel:[phone] [facility] [address], [place], [place], [id number], [place] tel:[phone] [place] [facility] with sciatica, left side [place] , [place], [place]. Referring Provider: Aruna De León [address], [place], [address]. tel:[phone] [facility] [address], [place], [place], [id number], [place] tel:[phone] [place] [facility] with sciatica, left side [place] , [place], [place]. Referring Provider: Aruna De León [address], [place], [address]. tel:[phone] [facility] [address], [place], [place], [id number], [place] tel:[phone] [place] [facility] with sciatica, left side [place] , [place], [place]. Referring Provider: Aruna De León [address], [place], [address]. tel:[phone] [facility] [address], [place], [place], [id number], [place] tel:[phone] [place] [facility] with sciatica, left side [place]. , [place], [place]. Referring Provider: Aruna De León [address], [place], [address]. tel:[phone], [place], [place], [id number], [place] tel:[phone] [place] [facility] with sciatica, left side [place]. , [place], [place]. Referring Provider: Aruna De León [address], [place], [address]. tel:[phone], [place], [place], [id number], tel:[phone] [place] [facility] with sciatica, left side [place]. , [place], [place]. Referring Provider: Aruna De León [address], [place], [address]. tel:[phone] [facility] [address], [place], [place], [address], [place] tel:[phone] [place] [facility] with sciatica, left side [place]. , [place], [place]. Referring Provider: Aruna De León [address], [place], [address]. tel:[phone] [facility] [address], [place], [place], [id number], [place] tel:[phone] [place] [facility] with sciatica, left side [place]. , [place], [place]. Referring Provider: Aruna De León [address], [place], [address]. tel:[phone] [facility] [address], [place], [place], [id number], [place] tel:[phone] [place] [facility] with sciatica, left side [place] , [place], [place]. Referring Provider: Geoffrey Reardon, [address], [place], [address]. tel:[phone] Family History Family Member Type Diagnosis Age At Onset No Information Payers Payer name Insurance type Covered alliance party ID Authoriza tisierra(s) For Life Medicare Se condary Only CI [id number] Social History Type Description Quantity Date Captured [...]
[2024-07-02 10:24] VITALS: BP 133/51; PULSE 79; RESP 20; TEMP 35.5; O2SAT 100; BMI 32.2
[2024-07-02] MEDS: LACTATED RINGERS 1,000 ML 150 ML IV CONT (10:38)
--- NOTE | 2024-07-02 10:43 | P.PNAN_ITS ---
Anes - Initial Pre Proc Eval Procedure: Operation Date: 07/02/24 11:30 Proposed Procedures p Esophagogastroduodenoscopy & Colonoscopy - Joey Bone MD Date/Time: 07/02/24 10:43 Surgeon: Joey Bone MD Pre Op Diagnosis: GERD,Epigastric pain,Early satiety,hemorrhoids, Patient Data Age: 84 Gender: F Height: 1.63 m Weight: 85.2 kg Last Vital Signs Temp 35.5 C L 07/02/24 10:24 Pulse 79 07/02/24 10:24 Resp 20 07/02/24 10:24 BP 133/51 L 07/02/24 10:24 Pulse Ox 100 07/02/24 10:24 O2 Del Method Room Air 07/02/24 10:24 Allergies Allergy/AdvReac Type Severity Reaction Status Date / Time lisinopril AdvReac Mild Cough Verified 07/02/24 10:20 Home Medications ?Medication ?Instructions ?Recorded ?Confirmed ?Type sertraline 50 mg tablet 50 mg PO DAILY #30 tabs 08/23/20 07/02/24 Rx albuterol sulfate 90 mcg/actuation 1 - 2 puff inhalation Q4-6H PRN 10/03/20 06/24/24 Rx aerosol inhaler (Ventolin HFA) shortness of breath or wheezing #8.5 grams fluticasone propionate 50 1 - 2 spray intranasal BID #16 mL 10/03/21 07/02/24 Rx mcg/actuation nasal spray,suspension (Flonase Allergy Relief) azelastine 137 mcg (0.1 %) nasal See Rx Instructions .Route 02/14/22 07/02/24 Rx spray .COMPLEX #30 mL meclizine 12.5 mg tablet 12.5 mg PO TID PRN dizziness #60 02/16/22 06/24/24 Rx tabs tacrolimus 0.1 % topical ointment 1 applic topical BID 03/18/23 07/02/24 History atorvastatin 40 mg tablet 40 mg PO HS #90 tabs 07/12/23 07/02/24 Rx memantine 5 mg tablet 5 mg PO BID #60 tabs 08/06/23 07/02/24 Rx montelukast 10 mg tablet 20 mg PO DAILY 08/06/23 07/02/24 History (Singulair) dronedarone 400 mg tablet (Multaq) 400 mg PO Q12H #60 tabs 12/16/23 07/02/24 Rx cholestyramine (with sugar) 4 gram 4 g PO DAILY 1 month #348.6 grams 03/19/24 07/02/24 Rx oral powder (Questran) metoprolol tartrate 25 mg tablet 25 mg PO Q12H #180 tabs 03/30/24 07/02/24 Rx rivastigmine tartrate 4.5 mg 4.5 mg PO BID #60 caps 03/31/24 07/02/24 Rx capsule clonazepam 1 mg tablet 1 mg PO QHS #90 tabs 05/13/24 07/02/24 Rx omeprazole 20 mg capsule,delayed 20 mg PO DAILY #30 caps 05/21/24 07/02/24 Rx release valsartan 320 mg tablet 320 mg PO DAILY #90 tabs 05/27/24 07/02/24 Rx dicyclomine 10 mg capsule 10 mg PO TID PRN abdominal pain 06/11/24 06/24/24 Rx #90 caps rivaroxaban 15 mg tablet (Xarelto) 15 mg PO QPM #30 tabs 06/15/24 07/02/24 Rx Patient hx anesthesia problems: none Family hx anesthesia problems: none Results Review: All pre-operative results and documents have been reviewed as part of the pre- operative evaluation. [facility] Past Medical History Medical History Alternating constipation and diarrhea Change in bowel habits Early satiety Epigastric pain Elevated fecal calprotectin Hemorrhoids Tenesmus (rectal) Abdominal cramping Diarrhea HTN (hypertension), benign Dementia Chronic low back pain GERD (gastroesophageal reflux disease) Vertigo REM sleep behavior disorder Depression Anxiety Asthma Essential hypertension Hyperlipidemia Obstructive sleep apnea Surgical History Surgical History H/O cataract extraction H/O: hysterectomy H/O bladder repair surgery Hx of cholecystectomy History of bilateral knee replacement History of left hip replacement History of back surgery Family History Family History Mother Patient's mother is in good health, Onset Age: 92 Family history of arthritis Hypertension Cerebrovascular accident Father Acute myocardial infarction, Onset Age: 68 Family history of congenital heart disease Hypertension Family history of cardiovascular disease Patient's father is Social History Social History Social History: 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 She lives home with her who is a durable power trademark attorney for healthcare. The patient has 2 biological children and stepchildren as well. The patient is a full code. Lifelong nonsmoker she does not use any alcohol marijuana or illicit drugs. Smoking status: Never smoker Second hand tobacco smoke exposure: No Alcohol intake: never Substance use: never Substance use type: does not use Lack of Transportation: No Lack of Food: Never True Current Housing: I Have Housing Concerned About Future Housing: No Difficulty Paying Gas/Electric Bills: No Difficulty Paying for Meds: No Currently Unemployed: YES Education: Decline to Answer Difficulty w/ Childcare or Family Care: No Living arrangements: with family Occupation/Education: retired Gender identity (if verbalized by the patient): Female Sexual Orientation (if Verbalized by the Patient): Straight or Heterosexual Spiritual care concerns: No Anes - Eval Final PreProcedure Day of Procedure 07/02/24 10:43 Patient weight: obese Heart: regular rate and rhythm Lungs: clear to auscultation Airway: Mallampati scale class II Neurological: alert and oriented Last oral intake: >/= 8 hours ASA classification: III Emergent: no Anesthetic plan: proceed Anesthesia type and monitoring: general GIVS and standard monitoring Results Review: All pre-operative results and documents have been reviewed as part of the pre- operative evaluation. Informed Consent: The patient's anesthetic plan and its attendant risks and benefits were discussed with the patient/family/POA. Questions were solicited and answers provided to the satisfaction of the patient/family/POA.
--- NOTE | 2024-07-02 11:06 | P.HP_ITS ---
H&P: HPI History of Present Illness Date/Time: 07/02/24 11:06 Chief Complaint: Dysphagia- change in bowel habits Narrative: The patient has been complaining of intermittent dysphagia for several years. She does not recall having had an EGD. In addition, she endorses alternating between diarrhea and constipation with occasional episodes of incontinence. Her last colonoscopy was more than 10 years ago. Review of Systems Review of Systems: All systems reviewed & are unremarkable except as noted in HPI and below PMFSH Past Medical History Medical History Alternating constipation and diarrhea Change in bowel habits Early satiety Epigastric pain Elevated fecal calprotectin Hemorrhoids Tenesmus (rectal) Abdominal cramping Diarrhea HTN (hypertension), benign Dementia Chronic low back pain GERD (gastroesophageal reflux disease) Vertigo REM sleep behavior disorder Depression Anxiety Asthma Essential hypertension Hyperlipidemia Obstructive sleep apnea Surgical History Surgical History H/O cataract extraction H/O: hysterectomy H/O bladder repair surgery Hx of cholecystectomy History of bilateral knee replacement History of left hip replacement History of back surgery Family History Family History Mother Patient's mother is in good health, Onset Age: 92 Family history of arthritis Hypertension Cerebrovascular accident Father Acute myocardial infarction, Onset Age: 68 Family history of congenital heart disease Hypertension Family history of cardiovascular disease Patient's father is Social History Social History Social History: 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 The patient has 2 biological children and stepchildren as well. The patient is a full code. Lifelong nonsmoker she does not use any alcohol marijuana or illicit drugs. Smoking status: Never smoker Second hand tobacco smoke exposure: No Alcohol intake: never Substance use: never Substance use type: does not use Lack of Transportation: No Lack of Food: Never True Current Housing: I Have Housing Concerned About Future Housing: No Difficulty Paying Gas/Electric Bills: No Difficulty Paying for Meds: No Currently Unemployed: YES Education: Decline to Answer Difficulty w/ Childcare or Family Care: No Living arrangements: with family Occupation/Education: retired Gender identity (if verbalized by the patient): Female Sexual Orientation (if Verbalized by the Patient): Straight or Heterosexual Spiritual care concerns: No Meds Home Medications and Allergies Home Medications ?Medication ?Instructions ?Recorded ?Confirmed ?Type sertraline 50 mg tablet 50 mg PO DAILY #30 tabs 08/23/20 07/02/24 Rx albuterol sulfate 90 mcg/actuation 1 - 2 puff inhalation Q4-6H PRN 10/03/20 06/24/24 Rx aerosol inhaler (Ventolin HFA) shortness of breath or wheezing #8.5 grams fluticasone propionate 50 1 - 2 spray intranasal BID #16 mL 10/03/21 07/02/24 Rx mcg/actuation nasal spray,suspension (Flonase Allergy Relief) azelastine 137 mcg (0.1 %) nasal See Rx Instructions .Route 02/14/22 07/02/24 Rx spray .COMPLEX #30 mL meclizine 12.5 mg tablet 12.5 mg PO TID PRN dizziness #60 02/16/22 06/24/24 Rx tabs tacrolimus 0.1 % topical ointment 1 applic topical BID 03/18/23 07/02/24 History atorvastatin 40 mg tablet 40 mg PO HS #90 tabs 07/12/23 07/02/24 Rx memantine 5 mg tablet 5 mg PO BID #60 tabs 08/06/23 07/02/24 Rx montelukast 10 mg tablet 20 mg PO DAILY 08/06/23 07/02/24 History (Singulair) dronedarone 400 mg tablet (Multaq) 400 mg PO Q12H #60 tabs 12/16/23 07/02/24 Rx cholestyramine (with sugar) 4 gram 4 g PO DAILY 1 month #348.6 grams 03/19/24 07/02/24 Rx oral powder (Questran) metoprolol tartrate 25 mg tablet 25 mg PO Q12H #180 tabs 03/30/24 07/02/24 Rx rivastigmine tartrate 4.5 mg 4.5 mg PO BID #60 caps 03/31/24 07/02/24 Rx capsule clonazepam 1 mg tablet 1 mg PO QHS #90 tabs 05/13/24 07/02/24 Rx omeprazole 20 mg capsule,delayed 20 mg PO DAILY #30 caps 05/21/24 07/02/24 Rx release valsartan 320 mg tablet 320 mg PO DAILY #90 tabs 05/27/24 07/02/24 Rx dicyclomine 10 mg capsule 10 mg PO TID PRN abdominal pain 06/11/24 06/24/24 Rx #90 caps rivaroxaban 15 mg tablet (Xarelto) 15 mg PO QPM #30 tabs 06/15/24 07/02/24 Rx Allergies Allergy/AdvReac Type Severity Reaction Status Date / Time lisinopril AdvReac Mild Cough Verified 07/02/24 10:20 Vital Signs Vital Signs - 24 hr 07/02/24 10:24 Temperature 96 F L Pulse Rate 79 Respiratory Rate 20 Blood Pressure 133/51 L Pulse Oximetry 100 Oxygen Delivery Room Air Exam Const: General: cooperative and healthy appearing Resp: Effort & Inspection: normal respiratory effort and able to speak in comp lete sentences Auscultation: clear to auscultation bilaterally Cardio: Rate: regular rate Rhythm: regular rhythm GI: Inspection: normal to inspection GI Palp: No No hepatosplenomegaly present Auscultation: normal bowel sounds Rectal Exam: deferred Skin: General skin exam: normal color Psych: Appearance: grossly normal Mental Status: mental status grossly normal Assessment and Plan Assessment and plan (1) Diarrhea: Code(s): R19.7 - Diarrhea, unspecified Status: Acute Assessment and Plan: The patient is deemed a good candidate for the procedure. Consent signed. Will proceed. will obtain colonic biopsies to rule out microscopic colitis. (2) Alternating constipation and diarrhea: Code(s): R19.8 - Other specified symptoms and signs involving the digestive system and abdomen Status: Acute (3) GERD (gastroesophageal reflux disease): Code(s): K21.9 - Gastro-esophageal reflux disease without esophagitis Status: Acute
--- NOTE | 2024-07-02 11:27 | SUR.OPER ---
EGD END 1124 COLONOSCOPY START 1130
[2024-07-02 12:06] VITALS: BP 124/50; PULSE 58; RESP 20; O2SAT 99
[2024-07-02 12:16] VITALS: BP 131/46; PULSE 56; RESP 20; O2SAT 98
[2024-07-02 12:26] VITALS: BP 144/55; PULSE 58; RESP 18; O2SAT 99
--- NOTE | 2024-07-02 12:44 | SUR.PHASEII ---
1220: PT TO RESUME XARELTO TODAY 07/02/[address] DILLARD. PT STATES UNDERSTANDING.
== END 2024-07-02 12:44 | disposition home or self-care (01) ==
PROVIDERS: PCP Family Medicine; Referring Provider Nurse Practitioner Family; Visit Provider Internal Medicine Gastroenterology
PROC: 0DJ08ZZ Inspection of Upper Intestinal Tract, Via Natural or Artificial Opening Endoscopic (ICD-10-PCS; CPT 45378; principal; 2024-07-02 11:30)
DX: R19.7 Diarrhea, unspecified (principal); D12.0 Benign neoplasm of cecum; K63.5 Polyp of colon; K57.30 Diverticulosis of large intestine without perforation or abscess without bleeding; K64.8 Other hemorrhoids; K29.30 Chronic superficial gastritis without bleeding; E66.9 Obesity, unspecified; Z68.32 Body mass index [BMI] 32.0-32.9, adult
CPT/HCPCS: 45385; 45380; 43235; 88305; J2003; J2704; J7120

== ENCOUNTER 2024-09-04 13:09 | Outpatient (CLI) | payer MEDICARE, OTHER, SELFPAY ==
--- NOTE | ~2024-09-04 | US_ITS ---
EXAMINATION: US carotid duplex BI DATE: 09/04/2024 13:55 INDICATION: Cerebrovascular disease TECHNIQUE: Grayscale, color Doppler, and pulsed Doppler images of the cervical carotid arteries were obtained. The degree of vessel stenosis is placed in one of the following categories: normal, <50%, 5 0-69%, >=70% but less than near-occlusion, near-occlusion, or total occlusion. Note that percent sten osis relative to normal distal artery lumen diameter is indirectly measured from velocity measurement s as described by Jason, et al. Radiology 2003; 229:340-346. Notes: Normal: Peak systolic velocity <125 centimeters/sec and no plaque <50%. Peak systolic velocity <125 ( EDV <40; ICA/CCA PSV ratio <2.0; used these factors only a tandem lesions or low cardiac output or co ntralateral disease) 50-69 %: PSV 125-230 (EDV 40-100; ratio 2-4) >= 70% but less than near occlusion: PSV greater than 230 (EDV > 100; ratio> 4.0) Near Occlusion: PSV that is variable; markedly narrowed lumen Occlusion: Absent flow on color/spectral Doppler and no lumen on dhillon scale. COMPARISON: None. FINDINGS: RIGHT: The right common carotid artery (CCA) peak systolic velocity (PSV) is 86 cm/s. The right internal car otid artery (ICA) PSV is 97 cm/s. The right ICA end-diastolic velocity (EDV) is 20 cm/s. The right IC A/CCA PSV ratio is 1.1. The external carotid artery (ECA) PSV is 86 cm/s. There is antegrade flow in the right vertebral artery. LEFT: The left CCA PSV is 94 cm/s. The left ICA PSV is 90 cm/s. The left ICA EDV is 17 cm/s. The left ICA/C CA PSV ratio is 1.0. The ECA PSV is 84 cm/s. There is antegrade flow in the left vertebral artery. IMPRESSION: 1. Less than 50% stenosis in the right internal carotid artery by sonographic criteria. 2. Less than 50% stenosis in the left internal carotid artery by sonographic criteria. Reviewed, dictated and finalized at location A. IMPRESSION: 1. Less than 50% stenosis in the right internal carotid artery by sonographic lillie gee. 2. Less than 50% stenosis in the left internal carotid artery by sonographic meena mcgowan.
--- OUTSIDE RECORDS SUMMARY | 2024-09-04 13:11 | XMS_ITS | Encounter Summary ---
Author Organization [facility] Address [address] [place] [address] Care Team Providers Care Funnel Coater Name Role Phone Geoffrey Reardon MD Primary Care Provider [phone] Bubba Villavicencio MD Unavailable [phone] Encounter Details Date Type Department Care Team (Late st Contact Info) Description 06/27/2020 [facility] [address] [address] Alfredo Brothers MA Social History Tobacco Use [...] on filedocumented in this encounter Care Teams Funnel Coater Relationship Specialty Start Date End Date Geoffrey Reardon MD [address] [facility] [address] [place] [address] PCP - General FAMILY PRACTICE 07/22/17 Bubba Villavicencio MD Three [address] [address] Consulting Physician INTERVENTIONAL CARDIOLOGY 03/20/19 documented as of this encounter
--- OUTSIDE RECORDS SUMMARY | 2024-09-04 13:12 | XMS_ITS | Clinical Summary ---
Author Organization [facility] [employer] Address [address] [facility] [place] [address] Care Team Providers Care Car Pre Cooler Name Role Phone Gabe Montenegro MD Primary Care Provider [phone] Source Comments [facility] [employer],non-[facility] Affiliates and Associated Physician Practices is amultiple site organization consisting of ambulatory clinics and hospital sitesin [place], [place], [place] and [place]. This disclosure is being madepursuant to the Care Everywhere program and may not contain all information available regarding this patient. Last updated 18.[facility] [employer] Allergies Active Allergy Reactions Criticality Noted Date Comments Penicillins 04/03/2016 Sulfa Drugs 04/03/2016 Medications * Be aware that medications may not be up to date on this document. Alwaysverify current medications with the patient. aspirin (ASPIRIN) 81 MG tablet Take 81 mg by mouth once daily Active CLONAZEPAM PO Active DULoxetine HCl (CYMBALTA PO) Active Fluticasone Propionate (FLONASE NA) Active LISINOPRIL-HYDROCHLO ROTHIAZIDE PO Active METOPROLOL TARTRATE PO Active OMEPRAZOLE PO Active Albuterol Sulfate (PROAIR HFA IN) Acti ve SIMVASTATIN PO Activ e fluticasone propionate (FLONASE) 50 MCG/ACT nasal sprayIndications:Acu te nasopharyngitis [place] 1 [place] into each nostril 2 times daily 1 Bottle 6 Active Social History Tobacco Use Types Packs/Day Years Used Date Smoking Tobacco: Never Comments Unknown Sex and Gender Information Value Date Recorded Sex Assigned at Not on file Legal Sex Female 11:12 AM TYPE CUTTER Gender Identity Not on file Sexual Orientation Not on file Last Filed Vital Signs Vital Sign Reading Time Taken Comments Blood Pressure 118/78 04/03/2016 11:32 AM TYPE CUTTER Pulse 105 04/03/2016 11:32 AM TYPE CUTTER Temperature 36.7 C (98.1 F) 04/03/2016 11:32 AM TYPE CUTTER Respiratory Rate 16 04/03/2016 11:32 AM TYPE CUTTER Oxygen Saturation 96% 04/03/2016 11:32 AM TYPE CUTTER Inhaled Oxygen Concentration - - Weight 87.1 kg (192 lb) 04/03/2016 11:32 AM TYPE CUTTER Height 160 cm (5' 3 ) 04/03/2016 11:32 AM TYPE CUTTER Body Mass Index 34.01 04/03/2016 11:32 AM TYPE CUTTER Plan of Treatment Health Maintenance Due Date Last Done Comments BONE DENSITY TESTING 1942 DTAP/TDAP/TD VACCINES (1 - Tdap) 1961 PNEUMOCOCCAL VACCINE 50+ (1 of 1 - PCV) 1992 ZOSTER VACCINE (1 of 2) 1992 Respiratory Syncytial Virus (RSV) Vaccine Pt: or over 60 yrs (1 - 1-dose 75+ series) 2017 COVID-19 VACCINE ( - 2023-2 5 season) 2023 DEPRESSION SCREENING 04/29/2024 MEDICARE AWV CALENDAR YEAR 2024 INFLUENZA VACCINE (Season Ended) 2024 HEPATITIS B VACCINE Aged Out No longe r eligible based on patient's age to complete this topic HIB VACCINE Aged Out No longer eligi ble based on patient's age to complete this topic HPV VACCINE Aged Out No longer eligi ble based on patient's age to complete this topic MENINGOCOCCAL (Group B) VACC INE SHARED DECISION-MAKING Aged Out No longer eligibl e based on patient's age to complete this topic MENINGOCOCCAL GROUPS A/C/Y/W VACCINE Aged Out No longer eligible b ased on patient's age to complete this topic Insurance [employer] MEDICARE ADV SELF PAY NO INSURANCE Member Subscriber Plan / Payer (Ef fective for All Dates) Name:Valdes[employer]na Member ID:Not on file Relation to Subscriber:Not on file Name:ISATU VALDES Subscriber ID:Not on file (Home) Address: [address] [place] [id number] Payer ID:Not on file Group ID:Not on file Type:Self Pay Address: [place], [place] AETNA AETNA MEDICARE ADV Care Teams Car Pre Cooler Relationship Specialty Start Date End Date Gabe Montenegro MD [address] [place] [address] PCP - General Internal Medicine 04/03/16
--- OUTSIDE RECORDS SUMMARY | 2024-09-04 13:12 | XMS_ITS | Patient Health Record ---
Author Organization [facility] [employer] [place] ([address]) Address [address] [place] [address] Care Team Providers Care Creative Designer Name Role Phone Geoffrey Reardon MD Primary Care Provider Unavaila Dilcia Kyle Unavailable [phone] Teresa Torres Unavailable Unavailable [employer], Provider Unavailable Unavailab le Allergies Allergen (clinical drug ingredient) Drug/Non Drug Allergy documented on EMR Reaction Allergy Type Onset Date Status lisinopril Lisinopril unknown reaction Drug Allergy Active Reason For Referral No Information Medications Medication SIG (Take, Route, Frequency, Duration) Notes Start Date End Date Status Levocetirizine Dihydrochloride 5 MG 1 tab(s) orally once a day (in the evening) for 30 day(s) Active Multaq 400 MG 1 tab(s) orally 2 times a day Active Meclizine HCl *Please review and pick correct strength-formulat ion from [employer] options. If intended option is not shown, [...] review and pick correct strength-formulat ion from [employer] options. If intended option is not shown, [...] iew and pick correct strength-formulat ion from [employer] options. If intended option is not shown, discontinue and re-order from [employer]* Active Valsartan 320 MG 1 tab(s) orally once a day Active Tacrolimus *Please review and pick correct strength-formulat ion from [employer] options. If intended option is not shown, discontinue and re-order from [employer] Search* Active Xarelto *Please review and pick correct strength-formulat ion from [employer] options. If intended option is not shown, discontinue and re-order from Quick Search* Active Sertraline HCl *Please review and pick correct strength-formulat ion from [employer] options. If intended option is not shown, discontinue and re-order from Quick Search* Active Singulair *Please review and pick correct strength-formulat ion from [employer] options. If intended option is not shown, discontinue and re-order from [employer] Search* Active Famotidine 20 MG 1 tablet Orally twice a day for 90 days 04/07/2024 Active Omeprazole *Please review and pick correct strength-formulat ion from [employer] options. If intended option is not shown, [...] Status Risk Notes Problem Chronic allergic conjunctivitis (06958682) Other chronic allergic conjunctivitis (H10.45) Active confirmed Problem Allergic rhinitis caused by pollen (disorder) (86035763) Allergic rhinitis due to pollen (J30.1) Active confirmed Problem Allergic rhinitis (99530287) Other allergic rhinitis (J30.89) Active confirmed Vital Signs Oximetry 97 % 10/22/2023 Blood pressure diastolic 61 mm Hg 10/22/2023 Height 64 in 10/22/2023 Blood pressure systolic 131 mm Hg 10/22/2023 Weight 198.4 lbs 10/22/2023 BMI 34.05 kg/m2 10/22/2023 Encounters Encounter Location Date Provider Diagnosis [address] [address] 10/12/2023 Provider DINAH-Ethan Dermatitis, unspecified L30.[address] Fix That Bug [address] [address] 10/22/2023 Dilcia Garry Allergic rhinitis du e to pollen J30.1 ; Dermatitis, unspecified L30.9 and Other chronic allergic conjunctivitis H10.[address] [address] 12/04/2023 Dilcia Garry Dermatitis, unspecified L30.[address] [address] 04/07/2024 Dilcia Garry Dermatitis, unspecified L30.9 Assessments Encounter Date Diagnosis (ICD Code) Assessment Notes Treatment Notes Treatment Clinical Notes Section Notes 10/12/2023 Dermatitis, unspecified (ICD-10 - L30.9) 10/22/2023 Allergic rhinitis due to pollen (ICD-10 [...] L30.9) 04/07/2024 Dermatitis, unspecified (ICD-10 - L30.9) 10/22/2023 Other chronic allergic conjunctivitis (ICD-10 - H10.45) Given ocular signs and symptoms I encouraged allergy avoidance measures and meds as above. If symptoms persist, consider adding additional medications including intraocular antihistamine/ma st cell stabilizer, PRN 10/02/2023 Other 10/22/2023 Other Plan Of Treatment No Information Insurance Providers Payer Name Payer Address Payer Phone Subscriber Number Group Number Insured Name Patient Relationship to Insured Coverage Start Date Coverage End Date [employer] Medicare [address] [place] [address] [id number] Isatu Gonsales Self - patient is the insured 4 for Life [address] [place] [address] [phone] [id number] Robert Gonsales Spouse - patient is the spouse of the insured Medical (General) History Medical History History ICD Code Atrial Fibrillation Bradycardia Dementia Surgical History Surgery Date(Month/Year) cholecystectomy bladder suspension, unspecified hip replacement knee replacement Wrist Surgery hysterectomy
--- OUTSIDE RECORDS SUMMARY | 2024-09-04 13:12 | XMS_ITS | Encounter Summary ---
Author Organization [facility] Address [address] [place] [address] Care Team Providers Care Packaging Line Operator Name Role Phone Gabe Montenegro MD Primary Care Provider [phone] Shahzad Beckham MD Unavailable [phone] Geoffrey Reardon MD Primary Care Provider [phone] Bubba Villavicencio MD Unavailable [phone] Encounter Details Date Type Department Care Team (Late st Contact Info) Description 11/13/2016 Abstract [facility] AT [address] [address] Alfredo Brothers [place] Social History Tobacco Use [...] * THYROID STIM HORMONE, TSH (02/24/2019) Pathologist [facility] TSH 2.93 0.40 - 4.50 02/24/2019 us Doc [facility] Abstract LABORATORY Edited Resul t - Final * COMPREHENSIVE METABOLIC PANEL (02/24/2019) Pathologist [facility] SODIUM S/P/B 136 135 - 146 POTASSIUM [...] Final * CBC (OUTSIDE LAB) (06/09/2018) Pathologist [facility] WBC 5.9 HGB 12.4 HCT 38.9 PLT [...] on filedocumented in this encounter Care Teams Packaging Line Operator Relationship Specialty Start Date End Date Gabe Montenegro MD [address] [place] [address] PCP - General INTERNAL MEDICINE 09/28/15 07/21/17 Geoffrey Reardon MD [address] [place] [address] PCP - General FAMILY PRACTICE 07/22/17 Shahzad Beckham MD [address] [place] [address] [place] Coding Team Lead CARDIOVASCULAR DISEASE 09/28/15 03/19/19 Bubba Villavicencio MD [address] [facility]. [facility] [address] [place] [address] Consulting Physician INTERVENTIONAL CARDIOLOGY 03/20/19 documented as of this encounter
--- OUTSIDE RECORDS SUMMARY | 2024-09-04 13:12 | XMS_ITS | Clinical Summary ---
Author Organization [facility] Address [address] [place] [address] Care Team Providers Care Liquid Floor And Wall Applier Name Role Phone Geoffrey Reardon MD Primary Care Provider [phone] Bubba Villavicencio MD Unavailable [phone] Allergies No known active allergies Medications albuterol [...] 05/22/2021 Assessment & Plan (05/22/2021 1:48 PM HOTEL OR MOTEL CLEANING SUPERVISOR): Continues to have dizziness. Given her infrequency of atrial fibrillation, I do not think it is causing her dizziness. I suggested neurological evaluation or an MRI of the brain for further evaluation of her symptoms. Paroxysmal atrial fibrillation ([facility]) 03/20/2021 Assessment & Plan (09/10/2022 2:27 PM CDT): She is currently in normal sinus rhythm on Multaq. She is tolerating anticoagulation without difficulty. We have had prior discussions regarding left atrial appendage closure and she is not interested at this time. Assessment & Plan (04/03/2022 5:04 PM HOTEL OR MOTEL CLEANING SUPERVISOR): She had paroxysmal atrial fibrillation noted on [...] xarelto for anticoagulation Obtaining information through structural after school coordinator Watchman consultation Assessment & Plan (05/22/2021 1:47 PM HOTEL OR MOTEL CLEANING SUPERVISOR): She had paroxysmal atrial fibrillation noted on [...] watchman. Assessment & Plan (03/20/2021 3:41 PM HOTEL OR MOTEL CLEANING SUPERVISOR): Her EKG in the office shows normal [...] controlled. Assessment & Plan (04/03/2022 4:21 PM HOTEL OR MOTEL CLEANING SUPERVISOR): Her blood pressure is elevated in the office. Encouraged home blood pressure monitoring. Continue lisinopril, metoprolol Assessment & Plan (08/21/2021 8:23 AM CDT): Blood pressure is well controlled with no changes in regimen at this time Encouraged to continue to monitor at home and log and call office with any concerns in future. Assessment & Plan (05/22/2021 1:49 PM HOTEL OR MOTEL CLEANING SUPERVISOR): Her blood pressure is elevated in the office today. I encouraged home blood pressure monitoring. Continue lisinopril, metoprolol. Assessment & Plan (03/20/2021 3:42 PM HOTEL OR MOTEL CLEANING SUPERVISOR): Her blood pressure is elevated in the office today. I encouraged home blood pressure monitoring. Continue lisinopril, metoprolol. Chest pain Mixed hyperlipidemia Assessment & Plan (09/10/2022 2:29 PM CDT): Her lipids were well controlled in June 2022. Continue atorvastatin. Assessment & Plan (04/03/2022 4:19 PM HOTEL OR MOTEL CLEANING SUPERVISOR): Her lipids were well controlled in June [...] 64 Assessment & Plan (05/22/2021 1:50 PM HOTEL OR MOTEL CLEANING SUPERVISOR): Continue atorvastatin. Assessment & Plan (03/20/2021 3:42 PM HOTEL OR MOTEL CLEANING SUPERVISOR): Her lipids were elevated at the beginning of the year. Continue atorvastatin. Atherosclerotic heart diseas e of [place] coronary artery without angina pectoris Assessment & Plan (09/10/2022 2:28 PM CDT): She is currently not having angina. She has had a prior cardiac catheterization without any flow-limiting stenoses. Continue metoprolol, atorvastatin and anticoagulation. Resolved Problems Problem Noted Date Diagnosed Date Resolved Date Type 2 diabetes mellitus wit hout complication ([facility]) 01/13/2016 06/12/2021 Immunizations Immunization Administration Dates Next Due Influenza (Generic) 02/03/2019 [...] 36.8 C (98.3 F) 03/17/2019 7:46 AM HOTEL OR MOTEL CLEANING SUPERVISOR Respiratory Rate 16 03/17/2019 12:15 PM HOTEL OR MOTEL CLEANING SUPERVISOR Oxygen Saturation 97% 09/10/2022 10:39 AM CDT Inhaled Oxygen Concentration - - Weight 86 kg (189 lb 9.6 oz) 09/10/2022 10:39 AM CDT Height 160 cm (5' 3 ) 09/10/2022 10:39 AM CDT Body Mass Index 33.59 09/10/2022 10:39 AM CDT Plan of Treatment Health Maintenance Due Date Last Done Comments ASCVD Statin 1940 DTaP, Tdap and Td Vaccines (1 - Tdap) 1961 Pneumococcal Vaccine: 50+ Years (1 of 2 - PCV) 1961 Zoster Vaccines (1 of 2) 1992 Annual Medicare Wellness Visit 2007 Dexa Scan (General) 2007 RSV Immunization or 60+ Years (1 - 1-dose 75+ series) 2017 ASCVD LDL 07/17/2023 07/16/2022, 03/2 09/2021, 06/24/2020, Additional history exists COVID-19 Vaccine (3 - 2023- season) 2023 07/19/2020, 06/08/2020 PHQ-2 (Physician Hoh) 04/29/2024 Meningococcal B Vaccine Aged Out No [...] 9:19 AM 03/17/2019 2:44 PM Care Teams Liquid Floor And Wall Applier Relationship Specialty Start Date End Date Geoffrey Reardon MD [address] [facility] [address] [place] [address] PCP - General FAMILY PRACTICE 07/22/17 Bubba Villavicencio MD [address] [address] Consulting Physician INTERVENTIONAL CARDIOLOGY 03/20/19
--- OUTSIDE RECORDS SUMMARY | 2024-09-04 13:12 | XMS_ITS ---
Author Organization [facility] [place] ([address]) Address [address] [place] [address] Care Team Providers Care Sheetfed Press Operator Name Role Phone Caron HUERTA, Geoffrey Primary Care Provider Unavaila Dilcia Kyle Unavailable [phone] Teresa Torres Unavailable REASON FOR VISIT ARC follow-up Encounters Encounter Location Date Provider Diagnosis [facility] [address] [place] [address] 03/10/2024 Dilcia Castañeda Plan Of Treatment No Information Progress Notes * Isatu VALDESDOB:[birth year] (84 yo F)Acc No.[id number]:03/10/2024 Progress Notes Patient: Isatu DIAZ Provider: Elenita Castañeda MD :1940 A ge:83 Y S ex:Female Date:03/10/2024 Address:[address] [facility] Pcp:Geoffrey Reardon MD Subjective: * Chief Complaints: * 1 . ARC follow-up. * Medical History: Objective: * Vitals: Assessment: Plan: * Treatment: * Billing Information: * Visit Code: * Procedure Codes: * Electronic signature of Pippa Castañeda MD on 09/04/2024 at 01:11 PM CDT Sign off status: Pending * Provider: Elenita Castañeda MD Date: 1 05/10/2023 Generated for Nura goyal/Wicho/Hanna on: 0 09/04/2024 01:11 PM PAYTONT
--- OUTSIDE RECORDS SUMMARY | 2024-09-04 13:12 | XMS_ITS | Encounter Summary ---
Author Organization [facility] Address [address] [place] [place] [address] Care Team Providers Care Director Targeted Marketing Name Role Phone Gabe Montenegro MD Primary Care Provider [phone] Encounter Details Date Type Department Care Team (Late st Contact Info) Description 10/28/2020 Lab Requisition [facility] DermPath Lab [address] [facility] [place] [address] [place] [address] Social History Tobacco Use Types Packs/Day Years Used Date Smoking Tobacco: Never Comments Unknown Sex and Gender Information Value Date Recorded Sex Assigned at Not on file Legal Sex Female 11:12 AM BOMB LOADER Gender Identity Not on file Sexual Orientation Not on file documented as of this encounter Plan of Treatment Not on file documented as of this encounter Procedures Procedure Name Priority Date/Time Associated Diagnosis Comments DERMATOPATHOLOGY Routine 10/26/2020 12:0 0 AM CDT documented in this encounter Results * DERMATOPATHOLOGY (10/26/2020 12:00 AM CDT) Case Report Dermatopathology Report Case: [id number] Authorizing Provider: Florentino Graham MD Collected: 10/26/2020 12:00 AM Ordering Location: [facility] Care DermPath Lab Received: 10/28/2020 05:56 AM Pathologist: [...] specimen consists of a shave biopsy measuring [id number], bisected. Jar 0. 5:25 PM CDT DERMATOPATHOLOGY [...] characteristic determined by the Dermatopathology Laboratory at [facility], directed by Dr. Tram Soriano. These tests need not be, and therefore are not, approved by the [place] Food and Drug Administration. The tests are used for clinical purposes. Billing Codes Specimen Charges Stain Charges 33399 1 5:25 PM CDT DERMATOPATHOLOGY LABORATORY Embedded Images 5:25 PM CDT DERMATOPATHOLOGY LABORATORY Pathology/Cytolog y TISSUE SPECIMEN FROM SKIN / Unknown 10/26/2020 10/28/2020 5:56 AM CDT us Florentino Graham MD LAB - PATHOLOGY/CYTOLOGY ORD ERABLES Final Result DERMATOPATHOLOGY LABORATORY [facility] - Department of Dermatology [address] [phone] documented in this encounter Visit Diagnoses Not on filedocumented in this encounter Care Teams Director Targeted Marketing Relationship Specialty Start Date End Date Gabe Montenegro MD [address] [facility] [address] [place] [address] PCP - General Internal Medicine 04/03/16 documented as of this encounter
--- OUTSIDE RECORDS SUMMARY | 2024-09-04 13:12 | XMS_ITS ---
Author Organization [facility] [place] ([address]) Address [address] [facility] [address] [place] [address] Care Team Providers Care Shank Faker Name Role Phone Geoffrey Reardon MD Primary Care Provider Unavaila Dilcia Kyle Unavailable [phone] Teresa Torres Unavailable REASON FOR VISIT Refill Medications Medication SIG (Take, Route, Fr equency, Duration) Notes Start Date End Date Status Famotidine 20 MG 1 tablet Orally 2 ti mes a day for 30 days 12/04/2023 Active Encounters Encounter Location Date Provider Diagnosis [facility] [address] [facility] [address] [place] [address] 12/04/2023 Dilcia Castañeda Dermatitis, unspecified L30.9 Assessments Encounter Date Diagnosis (ICD Code) Assessment Notes Treatment Notes Treatment Clinical Notes Section Notes 12/04/2023 Dermatitis, unspecified (ICD-10 - L30.9) Plan Of Treatment Medication Medication Name Sig Start Date Stop Date Notes Famotidine 20 MG 1 tablet Orally 2 times a day for 30 days 12/04/2023 Progress Notes * Isatu VALDESDOB:[birth year] (83 yo F)Acc No.[id number]:12/04/2023 Patient: Isatu DIAZ :1940 A ge:83 Y S ex:Female Address:[address] [facility] [place] [address] * Refills Refill Famotidine Tablet, 20 MG, Orally, 60 Tablet, 1 tablet, 2 times a day, 30 days, Refills=3 * true * Date: Generated for Nura goyal/Wicho/Hanna on: 0 09/04/2024 01:11 PM CDT
--- OUTSIDE RECORDS SUMMARY | 2024-09-04 13:12 | XMS_ITS ---
Author Organization [facility] [place] ([address]) Address [address] [facility] [address] [place] [address] Care Team Providers Care Director Business Integration Name Role Phone Geoffrey Reardon MD Primary Care Provider Unavaila Dilcia Kyle Unavailable [phone] Teresa Torres Unavailable REASON FOR VISIT Refill Medications Medication SIG (Take, Route, Fr equency, Duration) Notes Start Date End Date Status Famotidine 20 MG 1 tablet Orally twic e a day for 90 days 04/07/2024 Active Encounters Encounter Location Date Provider Diagnosis [facility] [address] [place] [address] [address] [place] [address] 04/07/2024 Dilcia Castañeda Dermatitis, unspecified L30.9 Assessments Encounter Date Diagnosis (ICD Code) Assessment Notes Treatment Notes Treatment Clinical Notes Section Notes 04/07/2024 Dermatitis, unspecified (ICD-10 - L30.9) Plan Of Treatment Medication Medication Name Sig Start Date Stop Date Notes Famotidine 20 MG 1 tablet Orally twice a day for 90 days 1 06/08/2023 Progress Notes * Isatu VLADESDOB:[birth year] (83 yo F)Acc No.[id number]:04/07/2024 Patient: Isatu DIAZ :1940 A ge:83 Y S ex:Female Address:[address] [facility] [place] [address] * Refills Start Famotidine Tablet, 20 MG, Orally, 180 Tablet, 1 tablet, twice a day, 90 days, Refills=1 * true * Date: Generated for Nura goyal/Wicho/Hanna on: 0 09/04/2024 01:12 PM CDT
== END 2024-09-04 13:10 | disposition home or self-care (01) ==
LOC: ANHIMG 13:09
PROVIDERS: PCP Family Medicine; Visit Provider Psychiatry & Neurology Neurology
DX: I65.23 Occlusion and stenosis of bilateral carotid arteries (principal); I67.9 Cerebrovascular disease, unspecified
CPT/HCPCS: 93880

== ENCOUNTER 2024-09-11 10:57 | Outpatient (CLI) | payer MEDICARE, OTHER, SELFPAY ==
--- OUTSIDE RECORDS SUMMARY | 2024-09-11 10:51 | XMS_ITS | Encounter Summary ---
Author Organization [facility] Address [address] [place] [address] Care Team Providers Care Director Clinical Information Services Name Role Phone Geoffrey Reardon MD Primary Care Provider [phone] Bubba Villavicencio MD Unavailable [phone] Encounter Details Date Type Department Care Team (Late st Contact Info) Description 06/27/2020 Abstract [facility] [address] [address] Alfredo Brothers [place] Social History Tobacco Use [...] filedocumented in this encounter Care Teams Director Clinical Information Services Relationship Specialty Start Date End Date Geoffrey Reardon MD [address] [facility] [address] [place] [address] PCP - General FAMILY PRACTICE 07/22/17 Bubba Villavicencio MD Three [address] [address] Consulting Physician INTERVENTIONAL CARDIOLOGY 03/20/19 documented as of this encounter
--- OUTSIDE RECORDS SUMMARY | 2024-09-11 10:52 | XMS_ITS | Encounter Summary ---
Author Organization [facility] Address [address] [place] [address] Care Team Providers Care Pediatrician/Medical Doctor Name Role Phone Gabe Montenegro MD Primary Care Provider [phone] Encounter Details Date Type Department Care Team (Late st Contact Info) Description 10/28/2020 Lab Requisition [facility] DermPath Lab [address] [facility] [place] [address] [place]orent[place] [address] Social History Tobacco Use Types Packs/Day Years Used Date Smoking Tobacco: Never Comments Unknown Sex and Gender Information Value Date Recorded Sex Assigned at Not on file Legal Sex 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 Gender Identity Not on file Sexual Orientation Not on file documented as of this encounter Plan of Treatment Not on file documented as of this encounter Procedures Procedure Name Priority Date/Time Associated Diagnosis Comments DERMATOPATHOLOGY Routine 10/26/2020 12:0 0 AM CDT documented in this encounter Results * DERMATOPATHOLOGY (10/26/2020 12:00 AM CDT) Case Report Dermatopathology Report Case: [id number] Authorizing Provider: Florentino Graham MD Collected: 10/26/2020 12:00 AM Ordering Location: [facility] Care DermPath Lab Received: 10/28/2020 05:56 AM [...] specimen consists of a shave biopsy measuring [id number], bisected. Jar 0. 5:25 PM CDT DERMATOPATHOLOGY [...] characteristic determined by the Dermatopathology Laboratory at [facility], directed by Dr. Tram Soriano. These tests need not be, and therefore are not, approved by the [place] Food and Drug Administration. The tests are used for clinical purposes. Billing Codes Specimen Charges Stain Charges 20689 1 5:25 PM CDT DERMATOPATHOLOGY LABORATORY Embedded Images 5:25 PM CDT DERMATOPATHOLOGY LABORATORY Pathology/Cytolog y TISSUE SPECIMEN FROM SKIN / Unknown 10/26/2020 10/28/2020 5:56 AM CDT us Florentino Graham MD LAB - PATHOLOGY/CYTOLOGY ORD ERABLES Final Result DERMATOPATHOLOGY LABORATORY [facility] - Department of Dermatology [address] [phone] documented in this encounter Visit Diagnoses Not on filedocumented in this encounter Care Teams Pediatrician/Medical Doctor Relationship Specialty Start Date End Date Gabe Montenegro MD [address] [facility] [address] [place] [address] PCP - General Internal Medicine 04/03/16 documented as of this encounter
--- OUTSIDE RECORDS SUMMARY | 2024-09-11 10:52 | XMS_ITS | Patient Health Record ---
Author Organization [facility] [place] ([address]) Address [address] [place] [address] Care Team Providers Care Claims Agent Right Of Way Name Role Phone Geoffrey Reardon MD Primary Care Provider Unavaila Dilcia Kyle Unavailable [phone] Teresa Torres Unavailable Unavailable [employer], Provider Unavailable [...] review and pick correct strength-formulat ion from [employer] options. If intended option is not shown, [...] review and pick correct strength-formulat ion from [employer] options. If intended option is not shown, [...] iew and pick correct strength-formulat ion from [employer] options. If intended option is not shown, discontinue and re-order from Quick Search* Active Valsartan 320 MG 1 tab(s) orally once a day Active Tacrolimus *Please review and pick correct strength-formulat ion from [employer] options. If intended option is not shown, discontinue and re-order from Quick Search* Active Xarelto *Please review and pick correct strength-formulat ion from [employer] options. If intended option is not shown, discontinue and re-order from Quick Search* Active Sertraline HCl *Please review and pick correct strength-formulat ion from [employer] options. If intended option is not shown, discontinue and re-order from Quick Search* Active Singulair *Please review and pick correct strength-formulat ion from [employer] options. If intended option is not shown, discontinue and re-order from Quick Search* Active Famotidine 20 MG 1 tablet Orally twice a day for 90 days 04/07/2024 Active Omeprazole *Please review and pick correct strength-formulat ion from [employer] options. If intended option is not shown, discontinue and re-order from Quick Search* Active Social History Tobacco Use: Social History Observation Description Date Details (start date - stop date) Never Smoker NA - NA Tobacco Control (Standard) Question Answer Notes Tobacco use: Nonsmoker Section Notes: retired retired Problems Problem Type SNOMED Code ICD Code Onset Dates Problem Status W/U Status Risk Notes Problem Other chronic allergic conjunctivitis (H10.45) Active confirmed Problem Allergic rhinitis caused by pollen (disorder) (74035133) Allergic rhinitis due to pollen (J30.1) Active confirmed Problem Allergic rhinitis (40734625) Other allergic rhinitis (J30.89) Active confirmed Vital Signs Oximetry 97 % 10/22/2023 Blood pressure diastolic 61 mm Hg 10/22/2023 Height 64 in 10/22/2023 Blood pressure systolic 131 mm Hg 10/22/2023 Weight 198.4 lbs 10/22/2023 BMI 34.05 kg/m2 10/22/2023 Encounters Encounter Location Date Provider Diagnosis [address] [address] 10/12/2023 Provider DINAH-Ethan Dermatitis, unspecified L30.[address] [address] 10/22/2023 Dilcia Garry Allergic rhinitis du e to pollen J30.1 ; Dermatitis, unspecified L30.9 and Other chronic allergic conjunctivitis H10.[address] [address] 12/04/2023 Dilcia Garry Dermatitis, unspecified L30.[address] [address] 04/07/2024 Dilcia Garry Dermatitis, unspecified L30.9 Assessments [...] Coverage End Date Aetna Medicare [address] [place] [address] [id number] Isatu Gonsales Self - patient is the insured 4 for Life [address] [place] [address] [phone] [id number] Robert Gonsales Spouse - patient is the spouse of the insured Medical (General) History Medical History History ICD Code Atrial Fibrillation Bradycardia Dementia Surgical History Surgery Date(Month/Year) cholecystectomy bladder suspension, unspecified hip replacement knee replacement Wrist Surgery hysterectomy
--- OUTSIDE RECORDS SUMMARY | 2024-09-11 10:52 | XMS_ITS | Clinical Summary ---
Author Organization [facility] [employer] Address [address] [facility] [place] [address] Care Team Providers Care Pharmacy Teacher Name Role Phone Gabe Montenegro MD Primary Care Provider [phone] Source Comments [facility],non-[facility] Affiliates and Associated Physician Practices is amultiple site organization consisting of ambulatory clinics and hospital sitesin [place], [place] and [place]. This disclosure is being madepursuant to the Care Everywhere program and may not contain all information available regarding this patient. Last updated 18.[facility] Allergies Active Allergy Reactions Criticality Noted Date [...] (FLONASE) 50 MCG/ACT nasal sprayIndications:Acu te nasopharyngitis Bristol 1 Bristol into each nostril 2 times daily 1 Bottle 6 Active Social History Tobacco Use Types Packs/Day Years Used Date Smoking Tobacco: Never Comments Unknown Sex and Gender Information Value Date Recorded Sex Assigned at Not on file Legal Sex Female 11:12 AM WELDING ESTIMATOR Gender Identity Not on file Sexual Orientation Not on file Last Filed Vital Signs Vital Sign Reading Time Taken Comments Blood Pressure 118/78 04/03/2016 11:32 AM WELDING ESTIMATOR Pulse 105 04/03/2016 11:32 AM WELDING ESTIMATOR Temperature 36.7 C (98.1 F) 04/03/2016 11:32 AM WELDING ESTIMATOR Respiratory Rate 16 04/03/2016 11:32 AM WELDING ESTIMATOR Oxygen Saturation 96% 04/03/2016 11:32 AM WELDING ESTIMATOR Inhaled Oxygen Concentration - - Weight 87.1 kg (192 lb) 04/03/2016 11:32 AM WELDING ESTIMATOR Height 160 cm (5' 3 ) 04/03/2016 11:32 AM WELDING ESTIMATOR Body Mass Index 34.01 04/03/2016 11:32 AM WELDING ESTIMATOR Plan of Treatment Health Maintenance Due Date [...] VALDES Subscriber ID:Not on file (Home) Address: [address] [place] [id number] Payer ID:Not on file Group ID:Not on file Type:Self Pay Address: [place], [place] AETNA AETNA MEDICARE ADV Care Teams Pharmacy Teacher Relationship Specialty Start Date End Date Gabe Montenegro MD [address] [place] [address] PCP - General Internal Medicine 04/03/16
--- OUTSIDE RECORDS SUMMARY | 2024-09-11 10:52 | XMS_ITS | Clinical Summary ---
Author Organization [facility] Address [address] [place] [address] Care Team Providers Care Business Practices Supervisor Name Role Phone Geoffrey Reardon MD Primary Care Provider [phone] Bubba Villavicencio MD Unavailable [phone] Allergies No known active allergies Medications albuterol [...] 05/22/2021 Assessment & Plan (05/22/2021 1:48 PM GRAPHIC ILLUSTRATOR): Continues to have dizziness. Given her infrequency of atrial fibrillation, I do not think it is causing her dizziness. I suggested neurological evaluation or an MRI of the brain for further evaluation of her symptoms. Paroxysmal atrial fibrillation ([facility]) 03/20/2021 Assessment & Plan (09/10/2022 2:27 PM CDT): She is currently in normal sinus rhythm on Multaq. She is tolerating anticoagulation without difficulty. We have had prior discussions regarding left atrial appendage closure and she is not interested at this time. Assessment & Plan (04/03/2022 5:04 PM GRAPHIC ILLUSTRATOR): She had paroxysmal atrial fibrillation noted on [...] xarelto for anticoagulation Obtaining information through structural recycle coordinator Watchman consultation Assessment & Plan (05/22/2021 1:47 PM GRAPHIC ILLUSTRATOR): She had paroxysmal atrial fibrillation noted on [...] watchman. Assessment & Plan (03/20/2021 3:41 PM GRAPHIC ILLUSTRATOR): Her EKG in the office shows normal [...] controlled. Assessment & Plan (04/03/2022 4:21 PM GRAPHIC ILLUSTRATOR): Her blood pressure is elevated in the office. Encouraged home blood pressure monitoring. Continue lisinopril, metoprolol Assessment & Plan (08/21/2021 8:23 AM CDT): Blood pressure is well controlled with no changes in regimen at this time Encouraged to continue to monitor at home and log and call office with any concerns in future. Assessment & Plan (05/22/2021 1:49 PM GRAPHIC ILLUSTRATOR): Her blood pressure is elevated in the office today. I encouraged home blood pressure monitoring. Continue lisinopril, metoprolol. Assessment & Plan (03/20/2021 3:42 PM GRAPHIC ILLUSTRATOR): Her blood pressure is elevated in the office today. I encouraged home blood pressure monitoring. Continue lisinopril, metoprolol. Chest pain Mixed hyperlipidemia Assessment & Plan (09/10/2022 2:29 PM CDT): Her lipids were well controlled in June 2022. Continue atorvastatin. Assessment & Plan (04/03/2022 4:19 PM GRAPHIC ILLUSTRATOR): Her lipids were well controlled in June [...] 64 Assessment & Plan (05/22/2021 1:50 PM GRAPHIC ILLUSTRATOR): Continue atorvastatin. Assessment & Plan (03/20/2021 3:42 PM GRAPHIC ILLUSTRATOR): Her lipids were elevated at the beginning of the year. Continue atorvastatin. Atherosclerotic heart diseas e of [place] coronary artery without angina pectoris Assessment & Plan (09/10/2022 2:28 PM CDT): She is currently not having angina. She has had a prior cardiac catheterization without any flow-limiting stenoses. Continue metoprolol, atorvastatin and anticoagulation. Resolved Problems Problem Noted Date Diagnosed Date Resolved Date Type 2 diabetes mellitus wit hout complication ([facility]) 01/13/2016 06/12/2021 Immunizations Immunization Administration Dates Next [...] 36.8 C (98.3 F) 03/17/2019 7:46 AM GRAPHIC ILLUSTRATOR Respiratory Rate 16 03/17/2019 12:15 PM GRAPHIC ILLUSTRATOR Oxygen Saturation 97% 09/10/2022 10:39 AM CDT [...] 2023- season) 2023 07/19/2020, 06/08/2020 PHQ-2 (Physician [place]) 04/29/2024 Meningococcal B Vaccine Aged Out No [...] 9:19 AM 03/17/2019 2:44 PM Care Teams Business Practices Supervisor Relationship Specialty Start Date End Date Geoffrey Reardon MD [address] [address] [place] [address] PCP - General FAMILY PRACTICE 07/22/17 Bubba Villavicencio MD [address] [address] Consulting Physician INTERVENTIONAL CARDIOLOGY 03/20/19
--- OUTSIDE RECORDS SUMMARY | 2024-09-11 10:52 | XMS_ITS ---
Author Organization [facility] [place] ([address]) Address [address] [facility] [address] [place] [address] Care Team Providers Care Braid Folder Name Role Phone Geoffrey Reardon MD Primary Care Provider Unavaila Dilcia Kyle Unavailable [phone] Teresa Torres Unavailable REASON FOR VISIT Refill Medications Medication SIG (Take, Route, Fr equency, Duration) Notes Start Date End Date Status Famotidine 20 MG 1 tablet Orally twic e a day for 90 days 04/07/2024 Active Encounters Encounter Location Date Provider Diagnosis [facility] [address] [place] [address] [address] [place] [address] 04/07/2024 Dilcia Castañeda Dermatitis, unspecified L30.9 Assessments Encounter Date Diagnosis (ICD Code) Assessment Notes Treatment Notes Treatment Clinical Notes Section Notes 04/07/2024 Dermatitis, unspecified (ICD-10 - L30.9) Plan Of Treatment Medication Medication Name Sig Start Date Stop Date Notes Famotidine 20 MG 1 tablet Orally twice a day for 90 days 1 06/08/2023 Progress Notes * Isatu VALDESDOB:[birth year] (83 yo F)Acc No.[id number]:04/07/2024 Patient: Isatu DIAZ :1940 A ge:83 Y S ex:Female Address:[address] [facility], [place] [address] * Refills Start Famotidine Tablet, 20 MG, Orally, 180 Tablet, 1 tablet, twice a day, 90 days, Refills=1 * true * Date: Generated for Nura goyal/Wicho/Hanna on: 0 09/11/2024 10:52 AM CDT
--- OUTSIDE RECORDS SUMMARY | 2024-09-11 10:52 | XMS_ITS ---
Author Organization [facility] [place] ([address]) Address [address] [place] [address] Care Team Providers Care Cat Dog Or Other Pet Groomer Name Role Phone Caron HUERTA, Geoffrey Primary Care Provider Unavaila Dilcia Kyle Unavailable [phone] Teresa Torres Unavailable REASON FOR VISIT ARC follow-up Encounters Encounter Location Date Provider Diagnosis [facility] [address] [place] [address] 03/10/2024 Dilcia Castañeda Plan Of Treatment No Information Progress Notes * Isatu VALDESDOB:[birth year] (84 yo F)Acc No.[id number]:03/10/2024 Progress Notes Patient: Isatu DIAZ Provider: Elenita Castañeda MD :1940 A ge:83 Y S ex:Female Date:03/10/2024 Address:[address] [facility] Pcp:Geoffrey Reardon MD Subjective: * Chief Complaints: * 1 . ARC follow-up. * Medical History: Objective: * Vitals: Assessment: Plan: * Treatment: * Billing Information: * Visit Code: * Procedure Codes: * Electronic signature of Pippa Castañeda MD on 09/11/2024 at 10:51 AM CDT Sign off status: Pending * Provider: Elenita Castañeda MD Date: 1 05/10/2023 Generated for Nura goyal/Wicho/Hanna on: 0 09/11/2024 10:51 AM PAYTONT
--- OUTSIDE RECORDS SUMMARY | 2024-09-11 10:52 | XMS_ITS ---
Author Organization [facility] [place] ([address]) Address [address] [facility] [address] [place] [address] Care Team Providers Care Firer Locomotive Crane Name Role Phone Geoffrey Reardon MD Primary Care Provider Unavaila Dilcia Kyle Unavailable [phone] Teresa Torres Unavailable REASON FOR VISIT Refill Medications Medication SIG (Take, Route, Fr equency, Duration) Notes Start Date End Date Status Famotidine 20 MG 1 tablet Orally 2 ti mes a day for 30 days 12/04/2023 Active Encounters Encounter Location Date Provider Diagnosis [facility] [address] [facility] [address] [place] [address] 12/04/2023 Dilcia Castañeda Dermatitis, unspecified L30.9 Assessments Encounter Date Diagnosis (ICD Code) Assessment Notes Treatment Notes Treatment Clinical Notes Section Notes 12/04/2023 Dermatitis, unspecified (ICD-10 - L30.9) Plan Of Treatment Medication Medication Name Sig Start Date Stop Date Notes Famotidine 20 MG 1 tablet Orally 2 times a day for 30 days 12/04/2023 Progress Notes * Isatu VALDESDOB:[birth year] (83 yo F)Acc No.[id number]:12/04/2023 Patient: Isatu DIAZ :1940 A ge:83 Y S ex:Female Address:[address] [facility] [place] [address] * Refills Refill Famotidine Tablet, 20 MG, Orally, 60 Tablet, 1 tablet, 2 times a day, 30 days, Refills=3 * true * Date: Generated for Nura goyal/Wicho/Hanna on: 0 09/11/2024 10:51 AM CDT
--- OUTSIDE RECORDS SUMMARY | 2024-09-11 10:52 | XMS_ITS | Encounter Summary ---
Author Organization [facility] Address [address] [place] [address] Care Team Providers Care Online Marketing Strategist Name Role Phone Gabe Montenegro MD Primary Care Provider [phone] Shahzad Beckham MD Unavailable [phone] Geoffrey Reardon MD Primary Care Provider [phone] Bubba Villavicencio MD Unavailable [phone] Encounter Details Date Type Department Care Team (Late st Contact Info) Description 11/13/2016 Abstract [facility] AT [address] [address] Alfredo Brothers MA Social History Tobacco Use [...] * THYROID STIM HORMONE, TSH (02/24/2019) Pathologist [facility] TSH 2.93 0.40 - 4.50 02/24/2019 us Doc [facility] Abstract LABORATORY Edited Resul t - Final * COMPREHENSIVE METABOLIC PANEL (02/24/2019) Pathologist [facility] SODIUM S/P/B 136 135 - 146 POTASSIUM [...] Final * CBC (OUTSIDE LAB) (06/09/2018) Pathologist [facility] WBC 5.9 HGB 12.4 HCT 38.9 PLT [...] on filedocumented in this encounter Care Teams Online Marketing Strategist Relationship Specialty Start Date End Date Gabe Montenegro MD [address] [facility] [address] [place] [address] PCP - General INTERNAL MEDICINE 09/28/15 07/21/17 Geoffrey Reardon MD [address] [facility] [address] [place] [address] PCP - General FAMILY PRACTICE 07/22/17 Shahzad Beckham MD [address] [facility] [address] [place] [address] [place] [employer] Tube Cutter CARDIOVASCULAR DISEASE 09/28/15 03/19/19 Bubba Villavicencio MD [facility] [address] [place] [address] Consulting Physician INTERVENTIONAL CARDIOLOGY 03/20/19 documented as of this encounter
[2024-09-11 11:30] LABS: Hematocrit 39.6 % (37.0-47.0); Hemoglobin 12.3 g/dL (12.0-15.0); Mean Corpuscular HGB Conc 31.1 g/dl (32-36); Mean Corpuscular Hemoglobin 28.1 pg (26-34); Mean Corpuscular Volume 90.6 fl (80-100); Mean Platelet Volume 10.2 fl (7.4-10.4); Platelet Count Result 224 k/mm3 (150-375); Red Blood Count 4.37 M/mm3 (4.2-5.4); Red Cell Distribution Width 13.3 % (11.5-14.5); White Blood Count 7.2 K/mm3 (4.5-10.0)
[2024-09-11 11:44] LABS: Alanine Aminotransferase 19 U/L (6-35); Alkaline Phosphatase 69 U/L (38-126); Anion Gap 8 mmol/L (4-12); Aspartate Amino Transferase 24 U/L (14-36); Bilirubin,Total 0.6 mg/dL (0.2-1.3); Blood Urea Nitrogen 21 mg/dL (7-17); Calcium 9.1 mg/dL (8.4-10.2); Carbon Dioxide 26 mmol/L (22-30); Chloride 104 mmol/L (98-107); Estimated Glomerular Filt Rate 52; Glucose 110 mg/dL (65-110); Potassium 3.9 mmol/L (3.4-5.0); Sodium 138 mmol/L (137-145)
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
== END 2024-09-11 10:58 | disposition home or self-care (01) ==
PROVIDERS: PCP Family Medicine; Referring Provider Family Medicine; Visit Provider Psychiatry & Neurology Neurology
DX: R19.7 Diarrhea, unspecified (principal); R53.83 Other fatigue; I10 Essential (primary) hypertension; I48.0 Paroxysmal atrial fibrillation; F41.9 Anxiety disorder, unspecified; Z87.828 Personal history of other (healed) physical injury and trauma; F03.90 Unspecified dementia, unspecified severity, without behavioral disturbance, psychotic disturbance, mood disturbance, and anxiety; I67.9 Cerebrovascular disease, unspecified
CPT/HCPCS: 36415; 80053; 84443; 85027; 95816

== ENCOUNTER 2025-02-25 15:17 | Outpatient (CLI) | payer MEDICARE, OTHER, SELFPAY ==
--- OUTSIDE RECORDS SUMMARY | 2023-10-02 12:30 | XMS_ITS ---
Author Organization [facility] ([address]) Address [address] [address] Care Team Providers Care Automotive Brake Technician Name Role Phone Geoffrey Reardon MD Primary Care Provider Unavaila Dilcia Kyle Unavailable [phone] Teresa Torres Unavailable Unavailable REASON FOR VISIT Pruritus Medications Medication SIG (Take, Route, Frequency, Duration) Notes Start Date End Date Status FAMOTIDINE 20 mg 1 tab(s) orally 2 ti mes a day; Duration: 30 days Active MEMANTINE 5 mg 1 tab(s) orally 2 ti mes a day Active CLONAZEPAM 1 mg 1 tab(s) orally 3 ti mes a day Active LEVOCETIRIZINE 5 mg 1 tab(s) orally once a day (in the evening); Duration: 30 day(s) 08/03/2023 Active RIVASTIGMINE 4.5 mg 1 cap(s) orally 2 ti mes a day Active SINGULAIR Active MULTAQ 400 mg 1 tab(s) orally 2 ti mes a day Active MECLIZINE Active AZELASTINE NASAL 137 mcg/inh 2 spray(s) intranasally 2 times a day Active ALBUTEROL 90 mcg/inh 2 puff(s) inhaled e very 6 hours Active OMEPRAZOLE Active VALSARTAN 320 mg 1 tab(s) orally once a day Active XARELTO Active SERTRALINE Active TACROLIMUS Active LEVOCETIRIZINE 5 mg 1 tab(s) orally once a day (in the evening); Duration: 30 day(s) Active ATORVASTATIN Active Encounters Encounter Location Date Provider Diagnosis [facility] [address] [facility] [address] [place] [address] 10/02/2023 Dilcia Castañeda Allergic rhinitis du e to pollen J30.1 ; Dermatitis, unspecified L30.9 and Other chronic allergic conjunctivitis H10.45 Assessments Encounter Date Diagnosis (ICD Code) Assessment Notes Treatment Notes Treatment Clinical Notes Section Notes 10/02/2023 Allergic rhinitis due to pollen (ICD-10 - J30.1) Given the history and symptoms, skin testing was performed to common aeroallergens to determine atopic status. clearly suffers from atopic disease based upon our skin testing and clinical history. Accordingly, we have introduced a new, aggressive medication regimen, discussed nasal washes and allergy-specific avoidance measures. 10/02/2023 Dermatitis, unspecified (ICD-10 - L30.9) Unclear cause for pruritus, skin is clear today, possible hives but also many skin tags present which may be causing itching. Start a trial of Pepcid and Xyzal. A copy of this consultation report was sent to the requesting physician. 10/02/2023 Other chronic allergic conjunctivitis (ICD-10 - H10.45) Given ocular signs and symptoms I encouraged allergy avoidance measures and meds as above. If symptoms persist, consider adding additional medications including intraocular antihistamine/mas t cell stabilizer, PRN and consider SCIT as an adjunctive measure 10/02/2023 Other Plan Of Treatment Medication Medication Name Sig Start Date Stop Date Notes FAMOTIDINE 20 mg 1 tab(s) orally 2 ti mes a day; Duration: 30 days LEVOCETIRIZINE 5 mg 1 tab(s) orally once a day (in the evening); Duration: 30 day(s) Treatment Notes Assessment Notes Allergic rhinitis due to pollen Given th e history and symptoms, skin testing was performed to common aeroallergens to determine atopic status. clearly suffers from atopic disease based upon our skin testing and clinical history. Accordingly, we have introduced a new, aggressive medication regimen, discussed nasal washes and allergy-specific avoidance measures. Dermatitis, unspecified Unclear cause fo r pruritus, skin is clear today, possible hives but also many skin tags present which may be causing itching. Start a trial of Pepcid and Xyzal. A copy of this consultation report was sent to the requesting physician. Other chronic allergic conjunctivitis Gi gema ocular signs and symptoms I encouraged allergy avoidance measures and meds as above. If symptoms persist, consider adding additional medications including intraocular antihistamine/mast cell stabilizer, PRN and consider SCIT as an adjunctive measure Next Appt Details Follow Up: 2 Months, Reason: Evaluation and Management Progress Notes * Isatu VALDESDOB:[birth year] (84 yo F)Acc No.[id number]:10/02/2023 Progress Notes Patient: Isatu DIAZ Provider: Elenita Castañeda MD :1940 A ge:83 Y S ex:Female Date:10/02/2023 Address:[address] [place], [place] [id number] Pcp:Geoffrey Reardon MD Subjective: * Chief Complaints: * 1 . Pruritus. * HPI: * Introduction: HPI: Lakhwinder Valdes, an 83 year old with HTN, dementia, and atrial fribrillation presenting for evaluation of pruritus. She was referred by Dr. Torres. S he reports itching of abdomen and chest which has been occurring for about 2 years. She reports rash is sometimes present and red. She is taking Xyzal and Zyrtec with some improvement in itching but does not resolve. Wearing a bra causes itching to flare. She is currently being treated with an ointment but does not remember the name. S he has a dog at home. She reports frequent sneezing and coughing with changes in the weather S he has never undergone allergy skin testing or received allergy immunotherapy. She denies a history of physician-diagnosed allergic rhinitis, recurrent sinusitis or otitis media, recurrent pneumonia, asthma/RAD, eczema, food allergies, urticaria/angioedema, medication allergies, contact dermatitis, latex allergy, eosinophilic esophagitis or stinging insect hypersensitivity, . * ROS: A LLERGY: Positive p er the HPI and history, otherwise unremarkable.? S PECIAL SENSES: Positve for n one. C ONSTITUTIONAL: Positive for n one. E NT: Positive p er the HPI and history, otherwise unremarkable.? R ESPIRATORY: Positive p er the HPI and history, otherwise unremakable.? O PHTHALMOLOGY: Positive for p er the HPI and history, otherwise unremarkable. E NDOCRINOLOGY: Positive for n one. C ARDIOLOGY: Positive for n one. G ASTROENTEROLOGY: Positive for n one. U ROLOGY: Positive for n one. D ERMATOLOGY: Positive for p er the HPI and history, otherwise unremakable. N EUROLOGY: Positive for n one. H EMATOLOGY/LYMPH: Positive for n one. M USCULOSKELETAL: Positive for n one. P SYCHOLOGY: Positive for n one. A ll other review of systems per the HPI and history, otherwise unremarkable. * Medical History: * Medications: T aking ATORVASTATIN , Taking TACROLIMUS , Taking VALSARTAN 320 mg tablet 1 tab(s) orally once a day , Taking SERTRALINE , Taking XARELTO , Taking OMEPRAZOLE , Taking SINGULAIR , Taking MECLIZINE , Taking MULTAQ 400 mg tablet 1 tab(s) orally 2 times a day , Taking ALBUTEROL 90 mcg/inh aerosol 2 puff(s) inhaled every 6 hours , Taking AZELASTINE NASAL 137 mcg/inh spray 2 spray(s) intranasally 2 times a day , Taking RIVASTIGMINE 4.5 mg capsule 1 cap(s) orally 2 times a day , Taking CLONAZEPAM 1 mg tablet 1 tab(s) orally 3 times a day , Taking MEMANTINE 5 mg tablet 1 tab(s) orally 2 times a day , Taking FAMOTIDINE 20 mg tablet 1 tab(s) orally 2 times a day , Taking LEVOCETIRIZINE 5 mg tablet 1 tab(s) orally once a day (in the evening) Objective: * Vitals: * Examination: G eneral examination: General appearance: p leasant, well-developed, well-nourished. HEENT: c onjunctiva are clear b ilaterally, no tenderness to palpation of the sinuses, TM's without evidence of acute infection, turbinates 2+ swollen and pale inferiorly bilaterally, clear rhinorrhea is present, no polyps noted, no septal perforation, posterior oropharynx is clear, no exudates, no tongue swelling, and uvula is midline. Oral cavity: n ormal, no lesions. Neck, thyroid : s upple, non-tender, no anterior cervical lymphadenopathy. Breasts : n ot performed. Heart: R RR, S1-S2, no murmurs, no rubs, no gallops. Lungs: c lear to auscultation and percussion in all lung kay, no wheezes or crackles. Neurologic exam: u nremarkable. Skin: n ormal, no rash, dermatographism, urticaria, angioedema. Peripheral pulses: n ormal (2+) bilaterally. Back: n ormal. Extremities: n ormal ROM, no clubbing, no cyanosis, no edema. Genitalia: n ot performed. Assessment: * Assessment: 1. D ermatitis, unspecified - L30.9 (Primary) 2 . A llergic rhinitis due to pollen - J30.1 3 . O ther chronic allergic conjunctivitis - H10.45 ? Plan: * Treatment: 2. A llergic rhinitis due to pollen Notes: Given the history and symptoms, skin testing was performed to common aeroallergens to determine atopic status. clearly suffers from atopic disease based upon our skin testing and clinical history. Accordingly, we have introduced a new, aggressive medication regimen, discussed nasal washes and allergy-specific avoidance measures. 3. O ther chronic allergic conjunctivitis Notes: Given ocular signs and symptoms I encouraged allergy avoidance measures and meds as above. If symptoms persist, consider adding additional medications including intraocular antihistamine/mast cell stabilizer, PRN and consider SCIT as an adjunctive measure * Procedure Codes: 9 5004 PRICK TESTS, Units: 72.00 , 70316 PT-FOCUSED TH RISK ASSMT, G8427 DOC MEDS VERIFIED W/PT OR RE * Preventive Medicine: Counseling: M edication instruction: W atch for side effects of prescribed medications, Nasal steroid/antihistamine instruction: avoid septum. E ducation: G ENERAL EDUCATION: Our staff spent an additional 30 minutes in direct contact with the patient educating them on their current diagnoses and proper treatment and prevention of symptoms and the proper use of medications. E ducation 2: A RC EDUCATION: Our staff discussed the appropriate allergen avoidance measures and medication utilization including upper airway hygiene with daily nasal washes given the patient's clinical status and diagnoses. SCIT EDUCATION: Discussed allergy immunotherapy including the relative risks, benefits and alternatives to this treatment as an adjunctive measure to current therapy, Allergy Immunotherapy: Risks: bleeding, infection, allergic reaction, anaphylaxis = severe allergic reaction that can cause ; Benefits: reduced need for medications, improved symptoms, disease modification. Alternatives: watch/wait, change medication regimen, improve allergy avoidance measures, Our staff discussed the warning signs of anaphylaxis and the indications to use self-injectable epinephrine and seek urgent or emergent care. P atient education material sent to portal? Y es C are goal follow up plan Above Normal BMI Follow-up G iving encouragement to exercise * Follow Up: 2 Months (Reason: Evaluation and Management) * Billing Information: * Visit Code: 43580 Office Visit, New Pt., Level 3. Modifiers: 25 * Procedure Codes: 71484 PRICK TESTS. Units: 72.00. 50673 PT-FOCUSED HLTH RISK ASSMT. G8427 DOC MEDS VERIFIED W/PT OR RE. * Electronic signature of Pippa Castañeda MD on 02/25/2025 at 03:35 PM CDT Sign off status: Pending * Provider: Elenita Castañeda MD Date: 0 10/02/2023 Generated for Nura goyal/Wicho/Hosseinitting on: 1 03:35 PM CDT History and Physical Notes * HPI (History of Present Illness) Category Sub-Category Detail Notes Category Not es *Introduction HPI: Isatu Valdes, an 83 year old with HTN, dementia, and atrial fribrillation presenting for evaluation of pruritus. She was referred by Dr. Torres. She reports itching of abdomen and chest which has been occurring for about 2 years. She reports rash is sometimes present and red. She is taking Xyzal and Zyrtec with some improvement in itching but does not resolve. Wearing a bra causes itching to flare. She is currently being treated with an ointment but does not remember the name. She has a dog at home. She reports frequent sneezing and coughing with changes in the weather She has never undergone allergy skin testing or received allergy immunotherapy. She denies a history of physician-diagnosed allergic rhinitis, recurrent sinusitis or otitis media, recurrent pneumonia, asthma/RAD, eczema, food allergies, urticaria/angioedema, medication allergies, contact dermatitis, latex allergy, eosinophilic esophagitis or stinging insect hypersensitivity, Examination Category Sub-Category Detail Notes Category Not es General examination HEENT: conjunctiva are clear bilaterally, no tenderness to palpation of the sinuses, TM's without evidence of acute infection, turbinates 2+ swollen and pale inferiorly bilaterally, clear rhinorrhea is present, no polyps noted, no septal perforation, posterior oropharynx is clear, no exudates, no tongue swelling, and uvula is midline Neck, thyroid : supple, non-tender, no anterior cervical lymphadenopathy Heart: RRR, S1-S2, no murmu rs, no rubs, no gallops Lungs: clear to auscultatio n and percussion in all lung kay, no wheezes or crackles Extremities: normal ROM, no clubb ing, no cyanosis, no edema General appearance: pleasant, well-devel oped, well-nourished Skin: normal, no rash, brett matographism, urticaria, angioedema Neurologic exam: unremarkable Oral cavity: normal, no lesions Breasts : not performed Peripheral pulses: normal (2+) bilatera lly Back: normal Genitalia: not performed
--- OUTSIDE RECORDS SUMMARY | 2023-10-12 16:30 | XMS_ITS ---
Author Organization [facility] [place] ([address]) Address [address] [place] [address] Care Team Providers Care Editorial Clerk Name Role Phone Geoffrey Reardon MD Primary Care Provider Unavaila Dilcia Kyle Unavailable [phone] Teresa Torres Unavailable Unavailable [facility], Provider Unavailable Unavailab le Allergies Allergen (clinical drug ingredient) Drug/Non Drug Allergy documented on EMR Reaction Allergy Type Onset Date Status lisinopril Lisinopril unknown reaction Drug Allergy Active [facility] Conversion Encounter Medications Medication SIG (Take, Route, Frequency, Duration) Notes Start Date End Date Status clonazePAM 1 MG 1 tab(s) orally 3 times a day Active Rivastigmine 4.5 MG 1 CAP(S) ORALLY 2 TIMES A DAY *Please review and pick correct strength-formulat ion from Exhale Fansan options. If intended option is not shown, discontinue and re-order from Quick Search* Active Multaq 400 MG 1 tab(s) orally 2 times a day Active Azelastine HCl 137 MCG/SPRAY 2 spray(s) intranasally 2 times a day Active Albuterol Sulfate HFA 108 (90 Base) MCG/ACT 2 puff(s) inhaled every 6 hours Active Sertraline HCl *Please review and pick correct strength-formulat ion from Exhale Fansan options. If intended option is not shown, discontinue and re-order from Quick Search* Active Omeprazole *Please review and pick correct strength-formulat ion from Exhale Fansan options. If intended option is not shown, discontinue and re-order from Quick Search* Active Xarelto *Please review and pick correct strength-formulat ion from Medispan options. If intended option is not shown, discontinue and re-order from Quick Search* Active Meclizine HCl *Please review and pick correct strength-formulat ion from Medispan options. If intended option is not shown, discontinue and re-order from Quick Search* Active Singulair *Please review and pick correct strength-formulat ion from Medispan options. If intended option is not shown, discontinue and re-order from Quick Search* Active Tacrolimus *Please review and pick correct strength-formulat ion from Medispan options. If intended option is not shown, discontinue and re-order from Quick Search* Active Atorvastatin Calcium *Please rev iew and pick correct strength-formulat ion from Medispan options. If intended option is not shown, discontinue and re-order from Quick Search* Active Valsartan 320 MG 1 tab(s) orally once a day Active Levocetirizine Dihydrochloride 5 MG 1 tab(s) orally once a day (in the evening); Duration: 30 day(s) Active Famotidine 20 MG 1 tab(s) orally 2 times a day; Duration: 30 days Active Memantine HCl 5 MG 1 tab(s) orally 2 times a day Active Encounters Encounter Location Date Provider Diagnosis [address] [address] 10/12/2023 Provider DIN[facility] Dermatitis, unspecified L30.9 Assessments Encounter Date Diagnosis (ICD Code) Assessment Notes Treatment Notes Treatment Clinical Notes Section Notes 10/12/2023 Dermatitis, unspecified (ICD-10 - L30.9) Plan Of Treatment Medication Medication Name Sig Start Date Stop Date Notes Levocetirizine Dihydrochlori de 5 MG 1 tab(s) orally once a day (in the evening); Duration: 30 day(s) Famotidine 20 MG 1 tab(s) orally 2 ti mes a day; Duration: 30 days Progress Notes * Isatu VALDESDOB:[birth year] (84 yo F)Acc No.[id number]:10/12/2023 Patient: Brenda Isatu GUERRA Provider: Pretty Long :1940 A ge:83 Y S ex:Female Date:10/12/2023 Address:[address] [place], [place] [id number] Pcp:Geoffrey Reardon MD Subjective: * Chief Complaints: * 1 . Multum To Medispan Conversion Encounter. * Medical History: * Medications: T aking Atorvastatin Calcium , Notes to Pharmacist: *Please review and pick correct strength-formulation from Medispan options. If intended option is not shown, discontinue and re-order from Quick Search*, Taking Tacrolimus , Notes to Pharmacist: *Please review and pick correct strength-formulation from Medispan options. If intended option is not shown, discontinue and re-order from Quick Search*, Taking Valsartan 320 MG Tablet 1 tab(s) orally once a day , Taking Sertraline HCl , Notes to Pharmacist: *Please review and pick correct strength-formulation from Medispan options. If intended option is not shown, discontinue and re-order from Quick Search*, Taking Xarelto , Notes to Pharmacist: *Please review and pick correct strength-formulation from Medispan options. If intended option is not shown, discontinue and re-order from Quick Search*, Taking Omeprazole , Notes to Pharmacist: *Please review and pick correct strength-formulation from Medispan options. If intended option is not shown, discontinue and re-order from Quick Search*, Taking Singulair , Notes to Pharmacist: *Please review and pick correct strength- formulation from Medispan options. If intended option is not shown, discontinue and re-order from Quick Search*, Taking Meclizine HCl , Notes to Pharmacist: *Please review and pick correct strength-formulation from Medispan options. If intended option is not shown, discontinue and re-order from Quick Search*, Taking Multaq 400 MG Tablet 1 tab(s) orally 2 times a day , Taking Albuterol Sulfate HFA 108 (90 Base) MCG/ACT Aerosol Solution 2 puff(s) inhaled every 6 hours , Taking Azelastine HCl 137 MCG/SPRAY Solution 2 spray(s) intranasally 2 times a day , Taking Rivastigmine 4.5 MG CAPSULE 1 CAP(S) ORALLY 2 TIMES A DAY , Notes to Pharmacist: *Please review and pick correct strength-formulation from Medispan options. If intended option is not shown, discontinue and re-order from Quick Search*, Taking clonazePAM 1 MG Tablet 1 tab(s) orally 3 times a day , Taking Memantine HCl 5 MG Tablet 1 tab(s) orally 2 times a day , Taking Levocetirizine Dihydrochloride 5 MG Tablet 1 tab(s) orally once a day (in the evening) * Allergies: L isinopril: unknown reaction. Objective: * Vitals: Assessment: * Assessment: 1. D ermatitis, unspecified - L30.9 (Primary) Plan: * Treatment: * Billing Information: * Visit Code: * Procedure Codes: * Electronic signature of Prov renee NIX-Migration on 02/25/2025 at 03:35 PM CDT Sign off status: Pending * Provider: Pretty mejía Migration Date: 0 10/12/2023 Generated for Nura goyal/Wicho/Hanna on: 1 03:35 PM CDT
--- OUTSIDE RECORDS SUMMARY | 2023-10-15 12:30 | XMS_ITS ---
Author Organization [facility] [place] ([address]) Address [address] [place] [address] Care Team Providers Care Awning Installer Name Role Phone Caron HUERTA, Geoffrey Primary Care Provider Unavaila Dilcia Kyle Unavailable [phone] Teresa Torres Unavailable REASON FOR VISIT [facility] follow-up Encounters Encounter Location Date Provider Diagnosis [facility] [address] [place] [address] 10/15/2023 Dilcia Castañeda Plan Of Treatment No Information Progress Notes * Isatu VALDESDOB:[birth year] (84 yo F)Acc No.[id number]:10/15/2023 Progress Notes Patient: Isatu DIAZ Provider: Elenita Castañeda MD :1940 A ge:83 Y S ex:Female Date:10/15/2023 Address:[address] [facility] [facility] Pcp:Geoffrey Reardon MD Subjective: * Chief Complaints: * 1 . [facility] follow-up. * Medical History: Objective: * Vitals: Assessment: Plan: * Treatment: * Billing Information: * Visit Code: * Procedure Codes: * Electronic signature of Pippa Castañeda MD on 02/25/2025 at 03:35 PM CDT Sign off status: Pending * Provider: Elenita Castañeda MD Date: 0 10/15/2023 Generated for Nura goyal/Wicho/Hanna on: 1 03:35 PM PAYTONT
--- OUTSIDE RECORDS SUMMARY | 2024-03-10 12:30 | XMS_ITS ---
Author Organization [facility] [place] ([address]) Address [address] [place] [address] Care Team Providers Care Mobile Therapist Name Role Phone Caron HUERTA, Geoffrey Primary Care Provider Unavaila Dilcia Kyle Unavailable [phone] Teresa Torres Unavailable REASON FOR VISIT [facility] follow-up Encounters Encounter Location Date Provider Diagnosis [facility] [address] [place] [address] 03/10/2024 Dilcia Castañeda Plan Of Treatment No Information Progress Notes * Isatu VALDESDOB:[birth year] (84 yo F)Acc No.[id number]:03/10/2024 Progress Notes Patient: Isatu DIAZ Provider: Elenita Castañeda MD :1940 A ge:83 Y S ex:Female Date:03/10/2024 Address:[address] [facility] [place] [facility] Pcp:Geoffrey Reardon MD Subjective: * Chief Complaints: * 1 . [facility]C follow-up. * Medical History: Objective: * Vitals: Assessment: Plan: * Treatment: * Billing Information: * Visit Code: * Procedure Codes: * Electronic signature of Pippa Castañeda MD on 02/25/2025 at 03:34 PM CDT Sign off status: Pending * Provider: Elenita Castañeda MD Date: 1 05/10/2023 Generated for Nura goyal/Wicho/Hanna on: 03:34 PM PAYTONT
--- NOTE | ~2025-02-25 | MM_ITS ---
EXAMINATION: MM screening [facility] HISTORY: Screening TECHNIQUE: Craniocaudal and mediolateral oblique 3-D tomosynthesis images were obtained and synthetic 2-D images were generated. CAD analysis was submitted and interpreted. COMPARISON: Comparison to multiple prior studies sequentially, with oldest reviewed study dated 09/08/2021. BREAST PARENCHYMAL COMPOSITION: Not dense: There are scattered areas of fibroglandular density. FINDINGS: There is no evidence of suspicious mass, calcification, or architectural distortion to suggest malignancy in either breast. There has been no suspicious interval change. IMPRESSION: 1. No mammographic evidence of malignancy. 2. Recommend routine screening mammography in one year. BI-RADS Category 1: Negative Reviewed, dictated and finalized at location B.
--- OUTSIDE RECORDS SUMMARY | 2025-02-25 15:35 | XMS_ITS | Patient Health Record ---
Author Organization [facility] Address [address] [facility] [address] [place] [address] Care Team Providers Care Personnel Clerk Name Role Phone Niko Olivia Unavailable [phone] Reason For Referral No Information Plan Of Treatment No Information Insurance Providers Payer Name Payer Address Payer Phone Subscriber Number Group Number Insured Name Patient Relationship to Insured Coverage Start Date Coverage End Date Aetna Hmo [address] [place] [address] [id number] RONY VALDES Self - patient is the insured
--- OUTSIDE RECORDS SUMMARY | 2025-02-25 15:35 | XMS_ITS | Clinical Summary ---
Author Organization [facility] Address [address] [facility] [place] [address] Care Team Providers Care Neuropathologist Name Role Phone Gabe Montenegro MD Primary Care Provider [phone] Source Comments [facility],non-[facility] Affiliates and Associated Physician Practices is amultiple site organization consisting of ambulatory clinics and hospital sitesin [place], [place], [place] and [place]. This disclosure is being madepursuant to the Care Everywhere program and may not contain all information available regarding this patient. Last updated 18.[facility] Allergies Active Allergy Reactions Criticality Noted Date Comments Penicillins 04/03/2016 Sulfa Drugs 04/03/2016 Medications * Be aware that medications may not be up to date on this document. Always verify current medications with the patient. aspirin (ASPIRIN) 81 MG tablet Take 81 mg by mouth once daily Active CLONAZEPAM PO Active DULoxetine HCl (CYMBALTA PO) Active Fluticasone Propionate (FLONASE NA) Active LISINOPRIL-HYDROCHLO ROTHIAZIDE PO Active METOPROLOL TARTRATE PO Active OMEPRAZOLE PO Active Albuterol Sulfate (PROAIR HFA IN) Acti ve SIMVASTATIN PO Activ e fluticasone propionate (FLONASE) 50 MCG/ACT nasal sprayIndications:Acu te nasopharyngitis Whitney 1 Whitney into each nostril 2 times daily 1 Bottle 6 Active Social History Tobacco Use Types Packs/Day Years Used Date Smoking Tobacco: Never Comments Unknown Sex and Gender Information Value Date Recorded Sex Assigned at Not on file Legal Sex Female 11:12 AM BOARD WINDER Gender Identity Not on file Sexual Orientation Not on file Last Filed Vital Signs Vital Sign Reading Time Taken Comments Blood Pressure 118/78 04/03/2016 11:32 AM BOARD WINDER Pulse 105 04/03/2016 11:32 AM BOARD WINDER Temperature 36.7 C (98.1 F) 04/03/2016 11:32 AM BOARD WINDER Respiratory Rate 16 04/03/2016 11:32 AM BOARD WINDER Oxygen Saturation 96% 04/03/2016 11:32 AM BOARD WINDER Inhaled Oxygen Concentration - - Weight 87.1 kg (192 lb) 04/03/2016 11:32 AM BOARD WINDER Height 160 cm (5' 3) 04/03/2016 11:32 AM BOARD WINDER Body Mass Index 34.01 04/03/2016 11:32 AM BOARD WINDER Plan of Treatment Health Maintenance Due Date Last Done Comments BONE DENSITY TESTING 1940 DTAP/TDAP/TD VACCINES (1 - Tdap) 1961 PNEUMOCOCCAL VACCINE 50+ (1 of 1 - PCV) 1992 ZOSTER VACCINE (1 of 2) 1992 Respiratory Syncytial Virus (RSV) Vaccine Pt: or over 60 yrs (1 - 1-dose 75+ series) 2017 DEPRESSION SCREENING 04/29/2024 MEDICARE AWV CALENDAR YEAR 2024 COVID-19 VACCINE (1 - 2023-2 5 season) 2024 INFLUENZA VACCINE (#1) 2024 HEPATITIS B VACCINE Aged Out No [...] / Payer (Ef fective for All Dates) Name:[employer] Member ID:Not on file Relation to Subscriber:Not on file Name:ISATU VALDES Subscriber ID:Not on file (Home) Address: [address] [place] [address] Payer ID:Not on file Group ID:Not on file Type:Self Pay Address: [place], [place] AET[place] AETNA MEDICARE ADV Care Teams Neuropathologist Relationship Specialty Start Date End Date Gabe Montenegro MD [address] [place] [address] PCP - General Internal Medicine 04/03/16
--- OUTSIDE RECORDS SUMMARY | 2025-02-25 15:35 | XMS_ITS | Encounter Summary ---
Author Organization [facility] Address [address] [place] [address] Care Team Providers Care Electronic Typesetting Machine Operator Name Role Phone Gabe Montenegro MD Primary Care Provider [phone] Encounter Details Date Type Department Care Team (Late st Contact Info) Description 10/28/2020 Lab Requisition [facility] D[facility]Path Lab [address] [place] [address] Florentino Graham [place] [address] Social History Tobacco Use Types Packs/Day Years Used Date Smoking Tobacco: Never Comments Unknown Sex and Gender Information Value Date Recorded Sex Assigned at Not on file Legal Sex Female 11:12 AM CARTOGRAPHY SUPERVISOR Gender Identity Not on file Sexual Orientation Not on file documented as of this encounter Plan of Treatment Not on file documented as of this encounter Procedures Procedure Name Priority Date/Time Associated Diagnosis Comments DERMATOPATHOLOGY Routine 10/26/2020 12:0 0 AM CDT documented in this encounter Results * DERMATOPATHOLOGY (10/26/2020 12:00 AM CDT) Case Report Dermatopathology Report Case: [id number] Authorizing Provider: Florentino Graham MD Collected: 10/26/2020 12:00 AM Ordering Location: [facility] Care DermPath Lab Received: 10/28/2020 05:56 AM Pathologist: Brenda Soriano MD Specimen: Skin, RUQ abdomen 5:25 PM CDT DERMATOPATHOLOGY LABORATORY Final Diagnosis Specimen A. SKIN, RUQ abdomen: VERRUCA VULGARIS (B07.8) SEBORRHEIC KERATOSIS, RETICULATED (ADENOID) TYPE (L82.1) (see microscopic description) 5:25 PM CDT DERMATOPATHOLOGY LABORATORY at 1725 CDT Clinical History R/O ISK, BCC. 5:25 PM CDT DERMATOPATHOLOGY LABORATORY Gross Description Specimen A: Received is one formalin filled container labeled with the patient's name and designated RUQ abdomen. The specimen consists of a shave biopsy measuring 25h2g4gm, bisected. Jar 0. 5:25 PM CDT DERMATOPATHOLOGY [...] characteristic determined by the Dermatopathology Laboratory at [facility], directed by Dr. Tram Soriano. These tests need not be, and therefore are not, approved by the [place] Food and Drug Administration. The tests are used for clinical purposes. Billing Codes Specimen Charges Stain Charges 36307 1 5:25 PM CDT DERMATOPATHOLOGY LABORATORY Embedded Images 5:25 PM CDT DERMATOPATHOLOGY LABORATORY Pathology/Cytolog y TISSUE SPECIMEN FROM SKIN / Unknown 10/26/2020 10/28/2020 5:56 AM CDT us Florentino Graham MD LAB - PATHOLOGY/CYTOLOGY ORD ERABLES Final Result DERMATOPATHOLOGY LABORATORY [facility] - Department of Dermatology [address] [phone] documented in this encounter Visit Diagnoses Not on filedocumented in this encounter Care Teams Electronic Typesetting Machine Operator Relationship Specialty Start Date End Date Gabe Montenegro MD [address] [facility] [address] [place] [id number] PCP - General Internal Medicine 04/03/16 documented as of this encounter
--- OUTSIDE RECORDS SUMMARY | 2025-02-25 15:35 | XMS_ITS | Patient Health Record ---
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 Name Role Phone eGoffrey Reardon MD Primary Care Provider Unavaila Dilcia Kyle Unavailable [phone] Teresa Torres Unavailable Unavailable Allergies Allergen (clinical drug ingredient) Drug/Non Drug Allergy documented on EMR Reaction Allergy Type Onset Date Status lisinopril Lisinopril unknown reaction Drug Allergy Active Reason For Referral No Information Medications Medication SIG (Take, Route, Frequency, Duration) Notes Start Date End Date Status Levocetirizine Dihydrochloride 5 MG 1 tab(s) orally once a day (in the evening); Duration: 30 day(s) Active Multaq 400 MG 1 tab(s) orally 2 times a day Active Meclizine HCl *Please review and pick correct strength-formulat ion from [employer] options. If intended option is not shown, discontinue and re-order from Quick Search* Active Azelastine HCl 137 MCG/SPRAY 2 spray(s) intranasally 2 times a day Active Albuterol Sulfate HFA 108 (90 Base) MCG/ACT 2 puff(s) inhaled every 6 hours Active FAMOTIDINE 20 mg 1 tab(s) orally 2 times a day; Duration: 30 days Active Azelastine HCl 137 MCG/SPRAY 2 puffs Nasally Twice a day; Duration: 30 days 10/22/2023 Active clonazePAM 1 MG 1 tab(s) orally 3 times a day Active LEVOCETIRIZINE 5 mg 1 tab(s) orally twice a day; Duration: 30 days Active Rivastigmine 4.5 MG 1 CAP(S) ORALLY 2 TIMES A DAY *Please review and pick correct strength-formulat ion from [employer] options. If intended option is not shown, discontinue and re-order from Quick Search* Active Famotidine 20 MG 1 tab(s) orally 2 times a day; Duration: 30 days Active Famotidine 20 MG 1 tablet Orally 2 times a day; Duration: 30 days 12/04/2023 Active Memantine HCl 5 MG 1 tab(s) orally 2 times a day Active Atorvastatin Calcium *Please rev iew and pick correct strength-formulat ion from [employer] options. If intended option is not shown, discontinue and re-order from Quick Search* Active Valsartan 320 MG 1 tab(s) orally once a day Active Tacrolimus *Please review and pick correct strength-formulat ion from [employer] options. If intended option is not shown, discontinue and re-order from Quick Search* Active Xarelto *Please review and pick correct strength-formulat ion from [employer] options. If intended option is not shown, discontinue and re-order from Quick Search* Active Sertraline HCl *Please review and pick correct strength-formulat ion from [employer] options. If intended option is not shown, discontinue and re-order from Quick Search* Active Singulair *Please review and pick correct strength-formulat ion from [employer] options. If intended option is not shown, discontinue and re-order from Quick Search* Active Famotidine 20 MG 1 tablet Orally twice a day; Duration: 90 days 04/07/2024 Active Omeprazole *Please review and pick correct strength-formulat ion from [employer] options. If intended option is not shown, [...] Status Risk Notes Problem Chronic allergic conjunctivitis (42219340) Other chronic allergic conjunctivitis (H10.45) Active confirmed Problem Allergic rhinitis caused by pollen (disorder) (89634150) Allergic rhinitis due to pollen (J30.1) Active confirmed Problem Allergic rhinitis (81325208) Other allergic rhinitis (J30.89) Active confirmed Encounters Encounter Location Date Provider Diagnosis [facility] [address] [facility] [address] [place] [phone] 04/07/2024 Dilcia Castañeda Dermatitis, unspecified L30.9 Assessments Encounter Date Diagnosis (ICD Code) Assessment Notes Treatment Notes Treatment Clinical Notes Section Notes 04/07/2024 Dermatitis, unspecified (ICD-10 - L30.9) Plan Of Treatment No Information Insurance Providers Payer Name Payer Address Payer Phone Subscriber Number Group Number Insured Name Patient Relationship to Insured Coverage Start Date Coverage End Date [employer] [address] [place] [address] [id number] Isatu Gonsales Self - patient is the insured 4 for Life [address] [place] [address] [id number] Robert Gonsales Spouse - patient is the spouse of the insured Medical (General) History Medical History History ICD Code Atrial Fibrillation Bradycardia Dementia Surgical History Surgery Date(Month/Year) cholecystectomy bladder suspension, unspecified hip replacement knee replacement Wrist Surgery hysterectomy
== END 2025-02-25 15:18 | disposition home or self-care (01) ==
LOC: ANHFOHIMG 15:19
PROVIDERS: PCP Family Medicine; Visit Provider Family Medicine
DX: Z12.31 Encounter for screening mammogram for malignant neoplasm of breast (principal)
CPT/HCPCS: 77063; 77067